=== PATIENT | male | born 1965 | race Caucasian/White ===

== ENCOUNTER 2016-12-01 07:25 | Day surgery (SDC) | payer OTHER ==
[2016-11-28 11:32] VITALS: BMI 21.4
[2016-12-01] MEDS ORDERED: LIDOCAINE HCL/PF 1% SDV 5ML VIAL ONE (07:59)
[2016-12-01] MEDS ORDERED: PROPOFOL 20 ML ONE ×3 (07:59)
[2016-12-01 12:28] VITALS: BP 117/69; PULSE 76; TEMP 97.7
--- NOTE | 2016-12-02 12:35 | PATH ---
Surgical Pathology Report Patient Name: JANINE OLIVEROS [facility]. Rec. #: [id number] /Age/Gender: 1965 (Age: 51) / M Account: [id number] Location: [facility]-ENDOSCOPY Taken: 12/01/2016 Received: 12/01/2016 Reported: 12/02/2016 Physicians: Kassie Pabon M.D. Specimen(s) Received A: BX 2ND PORTION DUODENUM & BULB B: BX ANTRUM Clinical History Abdominal pain, early satiety, weight loss, adenoma surveillance Erosive gastritis, hemorrhoids, food impaction, incomplete colonoscopy, suboptimal prep Final Diagnosis A. DUODENUM, SECOND PORTION AND BULB, BIOPSY: DUODENAL MUCOSA WITH CHRONIC INFLAMMATION AND FOCAL JOE'S GLANDS HYPERPLASIA. NO HISTOLOGIC EVIDENCE OF GLUTEN SENSITIVE ENTEROPATHY (CELIAC DISEASE). B. STOMACH, ANTRUM, BIOPSY: GASTRIC ANTRUM AND OXYNTIC MUCOSA WITH MODERATE CHRONIC GASTRITIS AND MILD REACTIVE GASTROPATHY. IMMUNOSTAIN FOR H. PYLORI IS NEGATIVE FOR ORGANISMS. Electronically Signed Aditya Resendiz M.D. Gross Description A. Received in formalin, labeled "biopsy second portion of duodenum and duodenal bulb" are 3 olivia, irregular portions of soft tissue averaging 0.4 cm in greatest dimension. The specimens are submitted in toto in one cassette. B. Received in formalin, labeled "biopsy antrum" are 3 olivia, irregular portions of soft tissue ranging from 0.2-0.4 cm in greatest dimension. The specimens are submitted in toto in one cassette. 12/01/201612/01/2016
== END 2016-12-01 10:10 | disposition home or self-care (01) ==
LOC: JASU-ENDO 07:25
PROVIDERS: ATTEND Internal Medicine Gastroenterology
PROC: 0DB98ZX Excision of Duodenum, Via Natural or Artificial Opening Endoscopic, Diagnostic (ICD-10-PCS; 2016-12-01)
PROC: 0DB68ZX Excision of Stomach, Via Natural or Artificial Opening Endoscopic, Diagnostic (ICD-10-PCS; 2016-12-01)
PROC: 0DJD8ZZ Inspection of Lower Intestinal Tract, Via Natural or Artificial Opening Endoscopic (ICD-10-PCS; principal; 2016-12-01 08:00)
DX: K29.70 Gastritis, unspecified, without bleeding (principal); R63.4 Abnormal weight loss; Z86.010 Personal history of colon polyps; Z53.8 Procedure and treatment not carried out for other reasons; R10.13 Epigastric pain; R12 Heartburn
CPT/HCPCS: 88305-TC; 88342-TC

== ENCOUNTER 2016-12-15 07:18 | Day surgery (SDC) | payer OTHER ==
[2016-12-15] MEDS ORDERED: PROPOFOL 20 ML ONE ×4 (07:48)
[2016-12-15] MEDS ORDERED: LIDOCAINE HCL/PF 1% SDV 5ML VIAL ONE (07:48)
[2016-12-15 08:04] VITALS: BMI 21.8
[2016-12-15 08:54] VITALS: TEMP 98.1
[2016-12-15 09:21] VITALS: PULSE 84
[2016-12-15 10:03] LABS: EOSINOPHIL 2.2 % (0-4.5); MCH 29.8 pg (25.7-33.7); MCHC 33.4 g/dl (32.0-35.9); MEAN CELL VOLUME 89.2 fl (80-96); MEAN PLT VOLUME 8.2 fl (7.5-11.1); PLATELET COUNT 187 K/MM3 (134-434); RDW 13.8 % (11.9-15.9); WHITE BLOOD COUNT 6.4 K/mm3 (4.0-10.0)
[2016-12-15 10:20] LABS: INR 0.96 (0.82-1.09); PROTHROMBIN TIME (PATIENT) 10.5 SEC (9.98-11.88)
[2016-12-15 10:21] VITALS: BP 120/84
[2016-12-15 10:35] LABS: ALBUMIN 3.4 g/dl (3.4-5.0); AMYLASE 50 U/L (25-115); ANION GAP 7 (8-16); BILIRUBIN,TOTAL 1.1 mg/dL (0.2-1.0); CALCIUM 9.1 mg/dL (8.5-10.1); CO2 32 mmol/L (21-32); CREATININE 0.5 mg/dL (0.7-1.3); GLUCOSE,RANDOM 193 mg/dL (74-106); SGOT/AST 16 U/L (15-37); SGPT/ALT 28 U/L (12-78); TOT PROT 6.5 g/dl (6.4-8.2)
[2016-12-15 10:37] LABS: ALK PHOS 60 U/L (45-117); FERRITIN 87.818 ng/ml (16.4-293.9)
[2016-12-15 10:57] LABS: C-REACTIVE PROTEIN < 0.3 MG/DL (0.00-0.3)
[2016-12-16 06:06] LABS: SERUM IRON 106 ug/dL (38-169); TOTAL IRON BINDING CAPACITY 290 ug/dL (250-450); UIBC 184 ug/dL (111-343)
[2016-12-16 08:07] LABS: CA 19-9 37 U/mL (0-35)
--- NOTE | 2016-12-16 12:59 | PATH ---
Surgical Pathology Report Patient Name: JANINE OLIVEROS [facility]. Rec. #: [id number] /Age/Gender: 1965 (Age: 51) / M Account: [id number] Location: [facility]-ENDOSCOPY Taken: 12/15/2016 Received: 12/15/2016 Reported: 12/16/2016 Physicians: Kassie Pabon M.D. Specimen(s) Received DESCENDING COLON POLYP Clinical History History of colon polyp Polyp, diverticulosis Final Diagnosis COLON, DESCENDING, POLYP, POLYPECTOMY: TUBULAR ADENOMA. Electronically Signed Aditya Resendiz M.D. Gross Description Received in formalin, labeled "descending colon" is a olivia, irregular portion of soft tissue measuring 0.5 cm in greatest dimension. The specimen is submitted in toto in one cassette. 12/15/201612/15/2016
[2016-12-16 14:13] LABS: HEP B SURFACE AB Reactive (.)
[2016-12-17 00:06] LABS: IGG 4 22 mg/dL (1-291)
[2016-12-17 08:07] LABS: ALPHA 2 MACROGLOBULINS,QN 172 mg/dL (110-276); BILIRUBIN TOTAL 0.7 mg/dL (0.0-1.2); FIBROSIS SCORE- 0.12 (0.00-0.21); GGT= 13 IU/L (0-65); GLUCOSE SERUM 206 mg/dL (65-99); HAPTOGLOBIN= 127 mg/dL (34-200); HEIGHT. 66 Inches (.); STEATOSIS SCORE- 0.27 (0.00-0.30); TRIGLYCERIDES= 172 mg/dL (0-149); WEIGHT. 148 LBS (.)
== END 2016-12-15 10:10 | disposition home or self-care (01) ==
LOC: JASU-ENDO 07:18
PROVIDERS: ATTEND Internal Medicine Gastroenterology
PROC: 0DBM8ZX Excision of Descending Colon, Via Natural or Artificial Opening Endoscopic, Diagnostic (ICD-10-PCS; principal; 2016-12-15 08:00)
DX: Z86.010 Personal history of colon polyps (principal); D12.4 Benign neoplasm of descending colon; K57.30 Diverticulosis of large intestine without perforation or abscess without bleeding; K64.8 Other hemorrhoids
CPT/HCPCS: 36415; 80053; 82105; 82150; 82728; 82787; 83540; 83550; 83690; 85025; 85610; 86140; 86301; 86704; 86706; 86708; 87340; 88305-TC

== ENCOUNTER 2018-02-04 17:37 | Inpatient (IN) | payer OTHER ==
--- NOTE | 2018-02-04 17:43 | PDOC ---
Rapid Medical Evaluation Time Seen by Provider: 02/04/18 17:42 Medical Evaluation: Allergies Allergy/AdvReac Type Severity Reaction Status Date / Time No Known Allergies Allergy Verified 08/26/17 21:57 02/04/18 17:42 I have performed a brief in-person evaluation of this patient. The patient presents with a chief complaint of: fever, flank pain, hematuria x 2 days, sent by PCP, diabetic on insulin Pertinent physical exam findings: febrile to 102.7F I have ordered the following: sepsis workup The patient will proceed to the ED for further evaluation. Discharge Disposition - Diagnosis Hematuria - Referrals Referrals: Latesha Sanderson MD [Primary Care Provider] - - Patient Instructions - Post Discharge Activity
[2018-02-04 17:45] VITALS: BMI 22.9
[2018-02-04 18:24] LABS: HEMATOCRIT 37.2 % (35.4-49); HEMOGLOBIN 12.5 GM/dL (11.7-16.9); MCH 29.2 pg (25.7-33.7); MCHC 33.6 g/dl (32.0-35.9); MEAN CELL VOLUME 86.8 fl (80-96); MEAN PLT VOLUME 8.4 fl (7.5-11.1); PLATELET COUNT 284 K/MM3 (134-434); RBC 4.29 M/mm3 (4.00-5.60); RDW 14.6 % (11.9-15.9); WHITE BLOOD COUNT 12.3 K/mm3 (4.0-10.0)
[2018-02-04 18:26] LABS: URINE APPEARANCE SLCLOUDY; URINE BILIRUBIN NEGATIVE (<2.0 mg/dL); URINE COLOR LTYELLOW; URINE GLUCOSE (UA) 3+ (NEGATIVE); URINE KETONE NEGATIVE (NEGATIVE); URINE NITRITE NEGATIVE (NEGATIVE); URINE UROBILINOGEN NEGATIVE mg/dL (0.2-1.0)
[2018-02-04 18:29] LABS: URINE LEUK ESTERASE 3+ (NEGATIVE); URINE PROTEIN 1+ (NEGATIVE)
[2018-02-04 18:33] LABS: EPI CELLS RARE /HPF (FEW); URINE BACTERIA RARE /hpf (NONE SEEN); URINE MUCUS RARE
[2018-02-04 18:36] LABS: INR 1.12 (0.82-1.09); PROTHROMBIN TIME (PATIENT) 12.6 SEC (9.98-11.88)
[2018-02-04 18:39] LABS: ACTIVATED PTT 30.7 SECONDS (26.9-34.4)
[2018-02-04 18:51] LABS: PLATELET ESTIMATE ADEQUATE
[2018-02-04 19:03] LABS: ALBUMIN 3.4 g/dl (3.4-5.0); ANION GAP 9 (8-16); BLOOD UREA NITROGEN 9 mg/dL (7-18); CALCIUM 8.5 mg/dL (8.5-10.1); CHLORIDE 103 mmol/L (98-107); CO2 26 mmol/L (21-32); CREATININE 0.7 mg/dL (0.7-1.3); GLUCOSE,RANDOM 62 mg/dL (74-106); POTASSIUM 3.2 mmol/L (3.5-5.1); SGOT/AST 14 U/L (15-37); SGPT/ALT 13 U/L (12-78); SODIUM 138 mmol/L (136-145)
[2018-02-04 19:05] LABS: ALK PHOS 51 U/L (45-117); BILIRUBIN,TOTAL 0.3 mg/dL (0.2-1.0); TOT PROT 7.3 g/dl (6.4-8.2)
[2018-02-04] MEDS ORDERED: CEFTRIAXONE 1 GM in DEXTROSE 5%-WATER - 100 ML IVPB ONE (19:15)
[2018-02-04] MEDS ORDERED: ACETAMINOPHEN 1000 MG/100 ML VIAL (NON FORMULARY) IVPB ONE (19:16)
--- NOTE | 2018-02-04 19:16 | PDOC ---
History of Present Illness - General Chief Complaint: Pain, Acute Stated Complaint: PAIN/HEMATURIA Time Seen by Provider: 02/04/18 17:42 History Source: Patient - History of Present Illness Initial Comments: 02/04/18 19:33 53 year old male with left flank pain, hematuria x 4 days and now 2 days of fever and chills reported. denies NVD abdominal pain. PMHX: Diabetes, Diabetic neuropathy and hematuria Past History - Past Medical History Allergies/Adverse Reactions: Allergies Allergy/AdvReac Type Severity Reaction Status Date / Time No Known Allergies Allergy Verified 02/04/18 17:45 Home Medications: Ambulatory Orders Insulin (Levemir) [Levemir Flexpen -] 3 units SQ BIDAC 08/19/15 predniSONE [Deltasone -] 20 mg PO BID 10/06/16 Cyanocobalamin [Vitamin B12 -] 1,000 mcg PO DAILY 12/01/16 Ibuprofen [Advil -] 400 mg PO PRN #0 12/01/16 Pantoprazole Sodium [Protonix] 40 mg PO DAILY #0 tablet.dr 12/01/16 Insulin (LOG) Aspart [NovoLOG -] 3 units SQ BID 12/15/16 Mag Carb/Aluminum Hydrox/Algin [Gaviscon Liquid] 30 ml PO PRN 12/15/16 Pancrealipase 1 tab PO TID 12/15/16 Polyethylene Glycol 3350 [Miralax 255 gm Btl -] 17 gm PO DAILY #1 bottle Anemia: No Asthma: No Cancer: No Cardiac Disorders: No CVA: No COPD: No CHF: No DVT: No Diabetes: Yes (NIDDM,DIABETIC NEUROPATHY) GI Disorders: Yes (GERD,COLONIC POLYPS,DIVERTICULOSIS) Disorders: No HTN: Yes Hypercholesterolemia: Yes Kidney Stones: No Seizures: No Thyroid Disease: No - Surgical History Appendectomy: Yes Cholecystectomy: Yes (LAPAROSCOPIC CHOLECYSTECTOMY) Orthopedic Surgery: No (lt. hand surgery (job injury)) - Reproductive History Testicular Surgery: No - Suicide/Smoking/Psychosocial Hx Smoking History: Never smoked Have you smoked in the past 12 months: No Number of Cigarettes Smoked Daily: 10 If you are a former smoker, when did you quit?: about 2years ago Information on smoking cessation initiated: No 'Breaking Loose' booklet given: 01/30/16 Hx Alcohol Use: No Drug/Substance Use Hx: No Substance Use Type: Alcohol Hx Substance Use Treatment: No Review of Systems - Review of Systems Able to Perform ROS?: Yes Is the patient limited Syriac proficient: No Constitutional: Yes: Fever ABD/GI: No: Symptoms Reported, See HPI, Abdominal Distended, Abd. Pain w/ defecation, Blood Streaked Bowels, Constipated, Diarrhea, Difficulty Swallowing , Nausea, Poor Appetite, Poor Fluid Intake, Rectal Bleeding, Vomiting, Indigestion, Abdominal cramping, Tarry Stools, Other : Yes: Dysuria, Flank Pain, Hematuria, Pain. No: Symptoms Reported, See HPI, Burning, Discharge, Frequency, Incontinence, Urgency, Testicular Mass, Testicular Swelling, Lesions, Testicular Pain, Other Neurological: No: Symptoms reported, See HPI, Headache, Numbness, Paresthesia, Pre-Existing Deficit, Seizure, Tingling, Tremors, Weakness, Unsteady Gait, Ataxia, Dizziness, Other *Physical Exam - Vital Signs Last Vital Signs Temp Pulse Resp BP Pulse Ox 102.7 F H 94 H 18 114/71 99 02/04/18 17:42 02/04/18 17:42 02/04/18 17:42 02/04/18 17:42 02/04/18 17:42 - Physical Exam General Appearance: Yes: Appropriately Dressed Respiratory/Chest: positive: Lungs Clear, Normal Breath Sounds Gastrointestinal/Abdominal: positive: Normal Bowel Sounds, Soft. negative: Tender Musculoskeletal: positive: Normal Inspection, CVA Tenderness (L) Extremity: positive: Normal Capillary Refill Integumentary: positive: Dry, Warm, Pale Neurologic: positive: Fully Oriented, Alert, Normal Mood/Affect ED Treatment Course - LABORATORY CBC & Chemistry Diagram: 02/04/18 18:00 02/04/18 18:00 - ADDITIONAL ORDERS Additional order review: Laboratory Results 02/04/18 02/04/18 18:00 17:50 PT with INR 12.60 H INR 1.12 PTT (Actin FS) 30.7 Urine Color Ltyellow Urine Appearance Slcloudy Urine pH 6.0 Ur Specific [place] 1.010 Urine Protein 1+ H Urine Glucose (UA) 3+ H Urine Ketones Negative Urine Blood 1+ H Urine Nitrite Negative Urine Bilirubin Negative Urine Urobilinogen Negative Ur Leukocyte Esterase 3+ H Urine WBC (Auto) 305 Urine RBC (Auto) 11 Ur Epithelial Cells Rare Urine Bacteria Rare Urine Mucus Rare 02/04/18 18:00 RBC 4.29 MCV 86.8 MCHC 33.6 RDW 14.6 MPV 8.4 Neutrophils % No Result Required. Lymphocytes % No Result Required. Medical Decision Making - Medical Decision Making 02/04/18 19:42 A: peylonephritis; Fever P: cbc cmp ua ucx blood culture *DC/Admit/Observation/Transfer Diagnosis at time of Disposition: Pyelonephritis, acute - Discharge Dispostion Admit: Yes - Referrals Referrals: Latesha Sanderson MD [Primary Care Provider] - - Patient Instructions - Post Discharge Activity
[2018-02-04] MEDS ORDERED: ACETAMINOPHEN INJECTION 100 ML IVPB ONE (19:34)
[2018-02-04] MEDS ORDERED: CEFTRIAXONE 1 GM/50 ML BAG ONE (19:35)
--- NOTE | 2018-02-04 20:09 | PDOC ---
*Physical Exam - Vital Signs Last Vital Signs Temp Pulse Resp BP Pulse Ox 102.7 F H 94 H 18 114/71 99 02/04/18 17:42 02/04/18 17:42 02/04/18 17:42 02/04/18 17:42 02/04/18 17:42 ED Treatment Course - LABORATORY CBC & Chemistry Diagram: 02/04/18 18:00 02/04/18 18:00 - ADDITIONAL ORDERS Additional order review: Laboratory Results 02/04/18 02/04/18 02/04/18 18:30 18:00 18:00 PT with INR INR PTT (Actin FS) Sodium Potassium Chloride Carbon Dioxide Anion Gap BUN Creatinine Creat Clearance w eGFR Random Glucose Lactic Acid 1.1 1.1 Calcium Total Bilirubin AST ALT Alkaline Phosphatase Troponin I < 0.02 Total Protein Albumin Urine Color Urine Appearance Urine pH Ur Specific [place] Urine Protein Urine Glucose (UA) Urine Ketones Urine Blood Urine Nitrite Urine Bilirubin Urine Urobilinogen Ur Leukocyte Esterase Urine WBC (Auto) Urine RBC (Auto) Ur Epithelial Cells Urine Bacteria Urine Mucus 02/04/18 02/04/18 02/04/18 18:00 18:00 17:50 PT with INR 12.60 H INR 1.12 PTT (Actin FS) 30.7 Sodium 138 Potassium 3.2 L Chloride 103 Carbon Dioxide 26 Anion Gap 9 BUN 9 Creatinine 0.7 D Creat Clearance w eGFR > 60 Random Glucose 62 L D Lactic Acid Calcium 8.5 Total Bilirubin 0.3 D AST 14 L D ALT 13 D Alkaline Phosphatase 51 Troponin I Total Protein 7.3 Albumin 3.4 Urine Color Ltyellow Urine Appearance Slcloudy Urine pH 6.0 Ur Specific [place] 1.010 Urine Protein 1+ H Urine Glucose (UA) 3+ H Urine Ketones Negative Urine Blood 1+ H Urine Nitrite Negative Urine Bilirubin Negative Urine Urobilinogen Negative Ur Leukocyte Esterase 3+ H Urine WBC (Auto) 305 Urine RBC (Auto) 11 Ur Epithelial Cells Rare Urine Bacteria Rare Urine Mucus Rare 02/04/18 18:00 RBC 4.29 MCV 86.8 MCHC 33.6 RDW 14.6 MPV 8.4 Neutrophils % No Result Required. Lymphocytes % No Result Required. Medical Decision Making - Medical Decision Making 02/04/18 20:08 agree with care from YUDY Mckeon *DC/Admit/Observation/Transfer Diagnosis at time of Disposition: Pyelonephritis, acute - Referrals Referrals: Latesha Sanderson MD [Primary Care Provider] - - Patient Instructions - Post Discharge Activity
[2018-02-04] MEDS ORDERED: DEXTROSE 50%-WATER - 25 GM/50 ML VIAL IVPUSH ONE (20:30)
--- NOTE | 2018-02-04 21:18 | HP ---
CHIEF COMPLAINT: Fever PCP: Dr Sanderson HISTORY OF PRESENT ILLNESS: 53yo Burmese speaking M with a PMHx of IDDM who presented w/ fevers and chills for the past 2 days. Translation provided by daughter. He endorses L flank pain , but denies dysuria or abd pain. Patient takes Levemir BID and Novolog AC for his diabetes, but endorses periodically using his PO medications (including SGLT2 inhibitor) when he forgets to take his insulin. He also endorses thick, gross hematuria for the past couple of days. Endorses 20 year prior smoking history. No prior BPH symptoms. Denies recent urological procedures. In the ER, patient was febrile (Tm 102.7) and tachycardic to the 90s. Labs were consistent with urinary tract infection. He was given IV Tylenol and 1g of Rocephin. Recent Travel: Denies PAST MEDICAL HISTORY: IDDM, GERD PAST SURGICAL HISTORY: Appendectomy, CCY, L hand usrgery Social History: Smoking: Prior 20 year smoker. Alcohol: Denies Drugs: Denies Allergies: No Known Allergies Allergy (Verified 02/04/18 17:45) HOME MEDICATIONS: Home Medications Medication Instructions Recorded Insulin (Levemir) [Levemir Flexpen 20 units SQ AM 08/19/15 -] Escitalopram Oxalate [Lexapro -] 20 mg PO DAILY 02/04/18 Insulin Aspart [Novolog] 10 unit SQ AC 02/04/18 Insulin Detemir [Levemir Flextouch] 16 unit SQ HS 02/04/18 Pantoprazole Sodium [Protonix] 40 mg PO DAILY 02/04/18 CONSTITUTIONAL: +fevers, chills Absent: diaphoresis, generalized weakness, malaise, loss of appetite, weight change HEENT: Absent: rhinorrhea, nasal congestion, throat pain, throat swelling, difficulty swallowing, mouth swelling, ear pain CARDIOVASCULAR: Absent: chest pain, syncope, palpitations, irregular heart rate , lightheadedness, peripheral edema RESPIRATORY: Absent: cough, shortness of breath, dyspnea with exertion, orthopnea, wheezing, stridor, hemoptysis GASTROINTESTINAL:Absent: abdominal pain, abdominal distension, nausea, vomiting , diarrhea, constipation, melena, hematochezia GENITOURINARY: + hematuria Absent: dysuria, frequency, urgency, hesitancy, flank pain, genital pain MUSCULOSKELETAL: Absent: myalgia, arthralgia, joint swelling, back pain, neck pain SKIN: Absent: rash, itching, pallor HEMATOLOGIC/IMMUNOLOGIC: Absent: easy bleeding, easy bruising, lymphadenopathy, frequent infections ENDOCRINE:Absent: unexplained weight gain, unexplained weight loss, heat intolerance, cold intolerance NEUROLOGIC: Absent: headache, focal weakness or paresthesias, dizziness, unsteady gait, seizure, mental status changes, PSYCHIATRIC: Absent: anxiety, depression, suicidal or homicidal ideation, hallucinations. PHYSICAL EXAMINATION Vital Signs Period Temp Pulse Resp BP Sys/Javed Pulse Ox Last 24 Hr 102.7 F 94 18 114/71 99 GEN: AAOx3, NAD, Lying comfortably, doesnt appear ill HEENT: PERRLA, EOMi, no JVD CV: S1, S2, RRR LUNG: CTABL ABD: Soft, no suprapubic tenderness, +L flank mild tenderness MSK: No edema, no erythema NEURO: CN 2-12 intact, no msk deficits, decreased sensation to pinprick in BLLE ASSESSMENT/PLAN: 53yo Burmese speaking M with a PMHx of IDDM who presented w/ fevers and chills and L flank tenderness, found to have a urinary tract infection # Sepsis 2/2 Suspected Pyelo -- Patient inappropriately takes SGLT2 inhibitor (unsure if Invokana or Farxiga ) when he forgets his insulin, high risk for UTI. Will treat w/ Rocephin 1g daily. F/u UCx. Normal renal u/s. IVF 100cc/hr. # Gross hematuria -- Pt states he has thick hematuria w/ clots, which is not consistent w/ UA of 11 rbc. Could be 2/2 pyelo. Was considering bladder etiology especially in light of smoking hx, however bladder u/s shows no mass. No prior BPH sx, no dysuria, urinating w/o difficulty. Will repeat UA in AM, observe for now. Hold off on uro evaluation for now. # Hypokalemia -- Could be from poor PO intake. Will replete w/ 40meq PO. Repeat K in AM. # IDDM -- Fingerstick was 60s in the ER likely due to very limited PO intake today, improved to 90s w/ snack, D50 ordered, not given. Will hold evening Levemir. If he eats breakfast, can give AM Levemir. A1C 14.2 in 2015. Will add A1C to ER labs. Continue ISS and BGMs ACHS. # GERD -- Continue protonix daily # MDD -- Continue Lexapro # FEN/PPx -- IVNS 100cc/hr, diabetic diet, SCDs # Dispo -- Admit to med/surg Called pharmacy. All meds confirmed except SGLT2 inhib. Pt has both Invokana and Farxiga in the records. Patient and daughter are unsure which he actually takes, so I did not place in med-rec. Case d/w Dr Aguero & Dr Apple Garrido MD - PGY1 Night Pre Algebra Teacher Visit type - Emergency Visit Emergency Visit: Yes ED Registration Date: 02/04/18 Care time: The patient presented to the Emergency Department on the above date and was hospitalized for further evaluation of their emergent condition. - New Patient This patient is new to me today: Yes Date on this admission: 02/05/18 - Critical Care Critical Care patient: No Hospitalist Screening - Colonoscopy Questionnaire Colonoscopy Questionnaire: Colonoscopy Questionnaire - Patient: 50 - 75 years old and never had a screening colonoscopy: Unknown History of colon or rectal polyps, or CA: Unknown History of IBD, Crohn's disease or UC: Unknown History of abdominal radiation therapy as a child: Unknown - Relative: 1 with colon or rectal CA, or polyps at age 60 or younger: Unknown Colon or rectal CA diagnosed at age 45 or younger: Unknown Multiple relatives with colon or rectal CA: Unknown - Outcome: Screening Result: Negative Screen
--- NOTE | 2018-02-04 21:35 | HP ---
CHIEF COMPLAINT: dysuria PCP: HISTORY OF PRESENT ILLNESS: This is a 53year old male with IDDM, depression who presents with fever, chills , pelvic pain, dysuria and hematuria x1 day. He initially went to primary for these symptoms and was sent to ER due to fever of 103 in office. Denies BPH history or any problems urinating in past. Normal stream/flow. Admits to a "gellish" blood consistency when urinating, one episode. Denies flank pain. History given by daughter, at bedside, speaks guamanian. ER course was notable for: UA positive for UTI. Recent Travel: no PAST MEDICAL HISTORY: DM, pancreatitis, GERD, depression PAST SURGICAL HISTORY: appendectomy, choleycystectomy Social History: Smoking:quit ten years ago; smoked for many years Alcohol:social Drugs: none Family History: Allergies No Known Allergies Allergy (Verified 02/04/18 17:45) HOME MEDICATIONS: Home Medications Medication Instructions Recorded Insulin (Levemir) [Levemir Flexpen 45 units SQ AM 08/19/15 -] Canagliflozin [Invokana] 100 mg PO DAILY 02/04/18 Dapagliflozin Propanediol [Farxiga] 5 mg PO DAILY 02/04/18 Escitalopram Oxalate [Lexapro -] 20 mg PO DAILY 02/04/18 Insulin Detemir [Levemir Flextouch] 15 unit SQ HS 02/04/18 Pantoprazole Sodium [Protonix] 40 mg PO DAILY 02/04/18 REVIEW OF SYSTEMS CONSTITUTIONAL: Positive: fever, chills Absent: diaphoresis, generalized weakness, malaise, loss of appetite, weight change HEENT: Absent: rhinorrhea, nasal congestion, throat pain, throat swelling, difficulty swallowing, mouth swelling, ear pain, eye pain, visual changes CARDIOVASCULAR: Absent: chest pain, syncope, palpitations, irregular heart rate, lightheadedness , peripheral edema RESPIRATORY: Absent: cough, shortness of breath, dyspnea with exertion, orthopnea, wheezing, stridor, hemoptysis GASTROINTESTINAL: Absent: abdominal pain, abdominal distension, nausea, vomiting, diarrhea, constipation, melena, hematochezia GENITOURINARY: Positive:dysuria ,hematuria, Absent: , frequency, urgency, hesitancy,flank pain, genital pain MUSCULOSKELETAL: Absent: myalgia, arthralgia, joint swelling, back pain, neck pain SKIN: Absent: rash, itching, pallor HEMATOLOGIC/IMMUNOLOGIC: Absent: easy bleeding, easy bruising, lymphadenopathy, frequent infections ENDOCRINE: Absent: unexplained weight gain, unexplained weight loss, heat intolerance, cold intolerance NEUROLOGIC: Absent: headache, focal weakness or paresthesias, dizziness, unsteady gait, seizure, mental status changes, bladder or bowel incontinence PSYCHIATRIC: Absent: anxiety, depression, suicidal or homicidal ideation, hallucinations. PHYSICAL EXAMINATION Vital Signs - 24 hr 02/04/18 17:42 Temperature 102.7 F H Pulse Rate 94 H Respiratory 18 Rate Blood Pressure 114/71 O2 Sat by Pulse 99 Oximetry (%) GENERAL: Awake, alert, and fully oriented, in no acute distress. Speaks guamanian HEAD: Normal with no signs of trauma. EYES: Pupils equal, round and reactive to light, extraocular movements intact, sclera anicteric, conjunctiva clear. No lid lag. EARS, NOSE, THROAT: Ears normal, nares patent, oropharynx clear without exudates. Moist mucous membranes. NECK: Normal range of motion, supple without lymphadenopathy, JVD, or masses. LUNGS: Breath sounds equal, clear to auscultation bilaterally. No wheezes, and no crackles. No accessory muscle use. HEART: Regular rate and rhythm, normal S1 and S2 without murmur, rub or gallop. ABDOMEN: Soft, very mildy tender LLQ, not distended, normoactive bowel sounds, no guarding, no rebound, no masses. No hepatomegaly or splenomegaly. MUSCULOSKELETAL: Normal range of motion at all joints. No bony deformities or tenderness. No CVA tenderness. UPPER EXTREMITIES: 2+ pulses, warm, well-perfused. No cyanosis. No clubbing. No peripheral edema. LOWER EXTREMITIES: 2+ pulses, warm, well-perfused. No calf tenderness. No peripheral edema. NEUROLOGICAL: Cranial nerves II-XII intact. LLE decreased sensation; walks with cane due to diabetic neuropathy; strength 5/5; reflexes 2+ PSYCHIATRIC: Cooperative. Good eye contact. Appropriate mood and affect. SKIN: Warm, dry, normal turgor, no rashes or lesions noted, normal capillary refill. Laboratory Results - last 24 hr 02/04/18 02/04/18 02/04/18 17:50 18:00 18:00 WBC 12.3 H D RBC 4.29 Hgb 12.5 D Hct 37.2 MCV 86.8 MCH 29.2 MCHC 33.6 RDW 14.6 Plt Count 284 D MPV 8.4 Total Counted 100 Neutrophils % No Result Required. Neutrophils % (Manual) 70.0 Band Neutrophils % 1.0 Lymphocytes % No Result Required. Lymphocytes % (Manual) 18.0 Monocytes % (Manual) 10 Metamyelocytes 1 Platelet Estimate Adequate Platelet Comment No clumping noted PT with INR 12.60 H INR 1.12 PTT (Actin FS) 30.7 Sodium Potassium Chloride Carbon Dioxide Anion Gap BUN Creatinine Creat Clearance w eGFR POC Glucometer Random Glucose Lactic Acid Calcium Total Bilirubin AST ALT Alkaline Phosphatase Troponin I Total Protein Albumin Urine Color Ltyellow Urine Appearance Slcloudy Urine pH 6.0 Ur Specific [place] 1.010 Urine Protein 1+ H Urine Glucose (UA) 3+ H Urine Ketones Negative Urine Blood 1+ H Urine Nitrite Negative Urine Bilirubin Negative Urine Urobilinogen Negative Ur Leukocyte Esterase 3+ H Urine WBC (Auto) 305 Urine RBC (Auto) 11 Ur Epithelial Cells Rare Urine Bacteria Rare Urine Mucus Rare 02/04/18 02/04/18 02/04/18 18:00 18:00 18:00 WBC RBC Hgb Hct MCV MCH MCHC RDW Plt Count MPV Total Counted Neutrophils % Neutrophils % (Manual) Band Neutrophils % Lymphocytes % Lymphocytes % (Manual) Monocytes % (Manual) Metamyelocytes Platelet Estimate Platelet Comment PT with INR INR PTT (Actin FS) Sodium 138 Potassium 3.2 L Chloride 103 Carbon Dioxide 26 Anion Gap 9 BUN 9 Creatinine 0.7 D Creat Clearance w eGFR > 60 POC Glucometer Random Glucose 62 L D Lactic Acid 1.1 Calcium 8.5 Total Bilirubin 0.3 D AST 14 L D ALT 13 D Alkaline Phosphatase 51 Troponin I < 0.02 Total Protein 7.3 Albumin 3.4 Urine Color Urine Appearance Urine pH Ur Specific [place] Urine Protein Urine Glucose (UA) Urine Ketones Urine Blood Urine Nitrite Urine Bilirubin Urine Urobilinogen Ur Leukocyte Esterase Urine WBC (Auto) Urine RBC (Auto) Ur Epithelial Cells Urine Bacteria Urine Mucus 02/04/18 02/04/18 18:30 20:41 WBC RBC Hgb Hct MCV MCH MCHC RDW Plt Count MPV Total Counted Neutrophils % Neutrophils % (Manual) Band Neutrophils % Lymphocytes % Lymphocytes % (Manual) Monocytes % (Manual) Metamyelocytes Platelet Estimate Platelet Comment PT with INR INR PTT (Actin FS) Sodium Potassium Chloride Carbon Dioxide Anion Gap BUN Creatinine Creat Clearance w eGFR POC Glucometer 95.49523 Random Glucose Lactic Acid 1.1 Calcium Total Bilirubin AST ALT Alkaline Phosphatase Troponin I Total Protein Albumin Urine Color Urine Appearance Urine pH Ur Specific [place] Urine Protein Urine Glucose (UA) Urine Ketones Urine Blood Urine Nitrite Urine Bilirubin Urine Urobilinogen Ur Leukocyte Esterase Urine WBC (Auto) Urine RBC (Auto) Ur Epithelial Cells Urine Bacteria Urine Mucus ASSESSMENT/PLAN: This is a 53 year old male with a history of DM, depression, hx of pancreatitis , who presented with fever, chills, dysuria and hematuria,, found to be septic sec to UTI. #sepsis secondary to complicated UTI (diabetic, male) -IVF -IV ceftriaxone -f/u blood and urine cultures -renal/bladder US -would repeat UA in am;first UA had 11 rbcs; if h/h drops consider urology eval/ cystoscopy #Diabetic with hypoglycemia on admission: -in ER glucose 62 -given vial D50 -hold long acting levemir/until eating -start insulin SS -bgm ACHS #depression: -cont ho9me meds #GERD: -cont PPI DVT ppl: hold for now due to hematuria: scds Disposition: inpt med surg Visit type - Emergency Visit Emergency Visit: Yes Care time: The patient presented to the Emergency Department on the above date and was hospitalized for further evaluation of their emergent condition. - New Patient This patient is new to me today: Yes Date on this admission: 02/04/18 - Critical Care Critical Care patient: No
[2018-02-04] MEDS ORDERED: POTASSIUM CHLORIDE TABS 20 MEQ TABLET.ER (FP) PO ONE ×2 (22:01→22:18)
[2018-02-04] MEDS: INSULIN SLIDING SCALE (NOVOLOG) 1 VIAL SQ SCH (22:13)
--- NOTE | 2018-02-04 22:34 | PN ---
Teaching Attending Note Name of Resident: Jerson Garrido ATTENDING PHYSICIAN STATEMENT I saw and evaluated the patient. I reviewed the resident's note and discussed the case with the resident. I agree with the resident's findings and plan as documented. SUBJECTIVE: 53M with fevers, chills, left flank pain for past 2 days OBJECTIVE: Temp 102.7 Gen: NAD AAOx3 CV: tachycardia, no m/r/g Lungs: CTA-B Back: no CVA tenderness Abd: Soft, NTND ASSESSMENT AND PLAN: Fevers, leukocytosis, left flank pain, positive UA all suggest sepsis 2/2 pyelonephritis start IV abx rocephin, f/u Urine Cultures mild hemeturia likely infectious related but should have Urology evaluation on a nonurgent basis. US Kidney Bladder hypoglycemia symptomatic, likely due to no food today in addition to sepsis related hold long acting tonight sliding scale insulin, can resume long acting when eating better, maybe tomorrow evening check A1c hypokalemia-replete and recheck
[2018-02-04] MEDS: SODIUM CHLORIDE 1,000 ML IV SCH (22:43)
[2018-02-05] MEDS: INSULIN SLIDING SCALE (NOVOLOG) 1 VIAL SQ SCH ×4 (06:15→21:13)
[2018-02-05 07:49] LABS: URINE APPEARANCE CLEAR; URINE BILIRUBIN NEGATIVE (<2.0 mg/dL); URINE COLOR STRAW; URINE GLUCOSE (UA) 3+ (NEGATIVE); URINE KETONE NEGATIVE (NEGATIVE); URINE NITRITE NEGATIVE (NEGATIVE); URINE PROTEIN NEGATIVE (NEGATIVE); URINE UROBILINOGEN NEGATIVE mg/dL (0.2-1.0)
[2018-02-05 07:55] LABS: BASO % 0.5 % (0-2.0); EOS % 0.7 % (0-4.5); HEMATOCRIT 32.4 % (35.4-49); LYMPH % 14.9 % (8-40); MCH 29.5 pg (25.7-33.7); MCHC 33.9 g/dl (32.0-35.9); MEAN CELL VOLUME 87.2 fl (80-96); MEAN PLT VOLUME 8.6 fl (7.5-11.1); MONO % 17.1 % (3.8-10.2); NEUT % 66.8 % (42.8-82.8); PLATELET COUNT 244 K/MM3 (134-434); RBC 3.71 M/mm3 (4.00-5.60); RDW 14.7 % (11.9-15.9); WHITE BLOOD COUNT 7.9 K/mm3 (4.0-10.0)
[2018-02-05 08:15] LABS: CALCIUM 7.7 mg/dL (8.5-10.1); CHLORIDE 110 mmol/L (98-107); POTASSIUM 3.3 mmol/L (3.5-5.1); SODIUM 140 mmol/L (136-145)
[2018-02-05 08:21] LABS: ALBUMIN 2.6 g/dl (3.4-5.0); ALK PHOS 39 U/L (45-117); ANION GAP 6 (8-16); BILIRUBIN,TOTAL 0.2 mg/dL (0.2-1.0); BLOOD UREA NITROGEN 8 mg/dL (7-18); CO2 24 mmol/L (21-32); CREATININE 0.6 mg/dL (0.7-1.3); GLUCOSE,RANDOM 114 mg/dL (74-106); MAGNESIUM 2.3 mg/dL (1.8-2.4); SGOT/AST 10 U/L (15-37); SGPT/ALT 13 U/L (12-78); TOT PROT 5.6 g/dl (6.4-8.2)
[2018-02-05 08:28] LABS: URINE LEUK ESTERASE 1+ (NEGATIVE)
[2018-02-05 08:34] LABS: YEAST RARE
[2018-02-05] MEDS ORDERED: cefTRIAXone SODIUM 1 GM VIAL ONE (09:09)
[2018-02-05] MEDS ORDERED: DEXTROSE 5%-WATER - 50 ML IVPB ONE (09:09)
[2018-02-05] MEDS: CEFTRIAXONE 1 GM in DEXTROSE 5%-WATER - 50 ML IVPB SCH (09:52)
[2018-02-05] MEDS: PANTOPRAZOLE 40 MG TABLET (FP) PO SCH (09:52)
[2018-02-05] MEDS: ESCITALOPRAM OXALATE 20 MG TABLET (FP) PO SCH (09:52)
--- NOTE | 2018-02-05 09:54 | EKG ---
Test Reason : Blood Pressure : / mmHG Vent. Rate : 080 BPM Atrial Rate : 080 BPM P-R Int : 130 ms QRS Dur : 098 ms QT Int : 394 ms P-R-T Axes : 039 033 028 degrees QTc Int : 454 ms NORMAL SINUS RHYTHM NORMAL ECG WHEN COMPARED WITH ECG OF 26-AUG-2017 23:21, ST NO LONGER ELEVATED IN INFERIOR LEADS Confirmed by DALE WALLER MD ([id number]) on 02/05/2018 9:54:12 AM Referred By: Confirmed By:DALE WALLER MD
[2018-02-05] MEDS ORDERED: POTASSIUM CHLORIDE TABS 20 MEQ TABLET.ER (FP) PO ONE (10:00)
[2018-02-05] MEDS ORDERED: ACETAMINOPHEN 325 MG TABLET (FP) PO ONE (10:27)
[2018-02-05] MEDS: SODIUM CHLORIDE 1,000 ML IV SCH (14:57)
--- NOTE | 2018-02-05 16:15 | PN ---
Teaching Attending Note Name of Resident: Sanjeev Urias ATTENDING PHYSICIAN STATEMENT I saw and evaluated the patient. I reviewed the resident's note and discussed the case with the resident. I agree with the resident's findings and plan as documented. SUBJECTIVE: no fever or chills, feels much better . no abd pain . no flank painnow . no hematuria OBJECTIVE: NAD , slightly dry MM Cv: RRR Lungs: CTAB Abd: soft, NT, ND , NL BS , no CVA tenderness ext: no edema ASSESSMENT AND PLAN: 53 y/o man with h/o Dm , GERD, and depression who presented with hematuria, L flank pain and fever , he was found to have acute pyelonephritis 1- Sepsis due to acute pyelonephritis : improved - cont ceftriaxone. - follow blood and urine cx - hematuria is expected to be due to infectin , but any way need outpt referral to uro due to UTI in a male - US reviewed. 2- DM : hypoglycemic at presentation , likely due to sepsis, poor po intake while sick. takes 20 of levemir in am and 16 units in HS , and po pills ( not sure of names ) - willhold all meds and monitor on SSI . possible long acting tomorrow - A1c 8.5 ( from 16.2 in 2015 ) 3- depression , cont lexapro will confirm meds with family when they bring bottles HLOC
[2018-02-05] MEDS ORDERED: INSULIN (NOVOLOG) ASPART 100 UNITS/ML 10ML VIAL ONE (20:24)
[2018-02-05] MEDS ORDERED: ACETAMINOPHEN 325 MG TABLET (FP) PO PRN (20:47)
--- NOTE | 2018-02-05 20:48 | PN ---
Physical Exam: SUBJECTIVE: Patient seen and examined at bedside. Patient states he feels better today. His flank pain has resolved. OBJECTIVE: Vital Signs Period Temp Pulse Resp BP Sys/Javed Pulse Ox Last 24 Hr 98.2 F-100.4 F 68-90 18-20 90-123/54-85 98-98 GENERAL: The patient is awake, alert, and fully oriented, in no acute distress. HEAD: Normal with no signs of trauma.. NECK: Trachea midline, full range of motion, supple. LUNGS: Breath sounds equal, clear to auscultation bilaterally, no wheezes, no crackles, no accessory muscle use. HEART: Regular rate and rhythm, S1, S2 without murmur, rub or gallop. ABDOMEN: Soft, nontender, nondistended, normoactive bowel sounds, no guarding, no rebound, no hepatosplenomegaly, no masses. No CVA tenderness. EXTREMITIES: 2+ pulses, warm, well-perfused, no edema. NEUROLOGICAL: Cranial nerves II through X grossly intact. Normal speech, gait not observed. PSYCH: Normal mood, normal affect. SKIN: Warm, dry, normal turgor, no rashes or lesions noted Laboratory Results - last 24 hr 02/04/18 02/05/18 02/05/18 20:41 05:03 06:00 WBC RBC Hgb Hct MCV MCH MCHC RDW Plt Count MPV Neutrophils % Lymphocytes % Monocytes % Eosinophils % Basophils % Sodium Potassium Chloride Carbon Dioxide Anion Gap BUN Creatinine Creat Clearance w eGFR POC Glucometer [phone] Random Glucose Hemoglobin A1c % Calcium Magnesium Total Bilirubin AST ALT Alkaline Phosphatase Total Protein Albumin Urine Color Straw Urine Appearance Clear Urine pH 6.0 Ur Specific [place] 1.013 Urine Protein Negative Urine Glucose (UA) 3+ H Urine Ketones Negative Urine Blood 1+ H Urine Nitrite Negative Urine Bilirubin Negative Urine Urobilinogen Negative Ur Leukocyte Esterase 1+ H D Urine WBC (Auto) 48 Urine RBC (Auto) 2 Urine Yeast Rare 02/05/18 02/05/18 02/05/18 06:40 07:00 07:00 WBC 7.9 D RBC 3.71 L Hgb 11.0 L D Hct 32.4 L MCV 87.2 MCH 29.5 MCHC 33.9 RDW 14.7 Plt Count 244 MPV 8.6 Neutrophils % 66.8 Lymphocytes % 14.9 Monocytes % 17.1 H D Eosinophils % 0.7 D Basophils % 0.5 Sodium 140 Potassium 3.3 L Chloride 110 H Carbon Dioxide 24 Anion Gap 6 L BUN 8 Creatinine 0.6 L Creat Clearance w eGFR > 60 POC Glucometer Random Glucose 114 H D Hemoglobin A1c % 8.7 H D Calcium 7.7 L Magnesium 2.3 D Total Bilirubin 0.2 D AST 10 L D ALT 13 Alkaline Phosphatase 39 L D Total Protein 5.6 L D Albumin 2.6 L D Urine Color Urine Appearance Urine pH Ur Specific [place] Urine Protein Urine Glucose (UA) Urine Ketones Urine Blood Urine Nitrite Urine Bilirubin Urine Urobilinogen Ur Leukocyte Esterase Urine WBC (Auto) Urine RBC (Auto) Urine Yeast 02/05/18 02/05/18 11:50 16:23 WBC RBC Hgb Hct MCV MCH MCHC RDW Plt Count MPV Neutrophils % Lymphocytes % Monocytes % Eosinophils % Basophils % Sodium Potassium Chloride Carbon Dioxide Anion Gap BUN Creatinine Creat Clearance w eGFR POC Glucometer 183 180 Random Glucose Hemoglobin A1c % Calcium Magnesium Total Bilirubin AST ALT Alkaline Phosphatase Total Protein Albumin Urine Color Urine Appearance Urine pH Ur Specific [place] Urine Protein Urine Glucose (UA) Urine Ketones Urine Blood Urine Nitrite Urine Bilirubin Urine Urobilinogen Ur Leukocyte Esterase Urine WBC (Auto) Urine RBC (Auto) Urine Yeast Active Medications Generic Name Dose Route Start Last Admin Trade Name Freq PRN Reason Stop Dose Admin Escitalopram Oxalate 20 mg 02/05/18 10:00 02/05/18 09:52 Lexapro - PO 20 mg DAILY ZANDER Administration Ceftriaxone Sodium 1 gm/ 50 mls @ 100 mls/hr 02/05/18 10:00 02/05/18 09:52 Dextrose IVPB 100 mls/hr DAILY ZANDER Administration Sodium Chloride 1,000 mls @ 100 mls/hr 02/04/18 21:15 02/05/18 14:57 Normal Saline - IV 100 mls/hr ASDIR ZANDER Administration Insulin Aspart 1 vial 02/04/18 22:00 02/05/18 16:42 Novolog Vial Sliding Scale - SQ 2 units ACHS ZANDER Administration Protocol Pantoprazole Sodium 40 mg 02/05/18 10:00 02/05/18 09:52 Protonix - PO 40 mg DAILY ZANDER Administration ASSESSMENT/PLAN: 53yo M with a PMHx of IDDM admitted for the treatment of pyelonephritis. #Sepsis 2/2 pyelonephritis -Rocephin 1g daily (day 2 of 14) -renal/bladder US WNL -IVF @100 #Gross hematuria -original and repeat UA grossly normal w/ microscopic hematuria -monitor for further episodes #Hypokalemia -3.2 -> 3.3 -repleting #IDDM -FS 60 in ED; rpt 95 -A1c 8.7 -holding levemir for now -BGM ACHS -ISS ACHS -unclear if patient taking 2 SGLT-2 inhibitors (invokana and farxiga) -patient unsure, family unsure -advised patient's to bring his meds when she visits #GERD -c/w home protonix 40 daily #FEN -NS @ 100 -monitor lytes; replete as above -DM diet #prophy -SCDs #Dispo -Admit to inpatient med/surg Visit type - Emergency Visit Emergency Visit: Yes ED Registration Date: 02/04/18 Care time: The patient presented to the Emergency Department on the above date and was hospitalized for further evaluation of their emergent condition. - New Patient This patient is new to me today: Yes Date on this admission: 02/05/18 - Critical Care Critical Care patient: No
[2018-02-06] MEDS: SODIUM CHLORIDE 1,000 ML IV SCH ×4 (02:52→22:01)
[2018-02-06] MEDS: INSULIN SLIDING SCALE (NOVOLOG) 1 VIAL SQ SCH ×3 (06:18→17:31)
[2018-02-06 07:21] LABS: EOS % 2.1 % (0-4.5); HEMATOCRIT 33.1 % (35.4-49); LYMPH % 20.6 % (8-40); MCH 29.1 pg (25.7-33.7); MCHC 33.4 g/dl (32.0-35.9); MEAN CELL VOLUME 87.2 fl (80-96); MEAN PLT VOLUME 8.5 fl (7.5-11.1); MONO % 15.3 % (3.8-10.2); PLATELET COUNT 254 K/MM3 (134-434); RBC 3.79 M/mm3 (4.00-5.60); RDW 14.8 % (11.9-15.9); WHITE BLOOD COUNT 6.4 K/mm3 (4.0-10.0)
--- NOTE | 2018-02-06 07:34 | PN ---
Physical Exam: SUBJECTIVE: Patient seen and examined no complaints this morning denies chest pain, headache, abd pain, dysuria, hematuria eating/ambulating/toileting without difficulty called family yesterday to bring in meds, they did not. he will call his this morning to bring in home medications. OBJECTIVE: Vital Signs Period Temp Pulse Resp BP Sys/Javed Pulse Ox Last 24 Hr 98.4 F-100.4 F 64-69 18-20 90-114/58-78 98-98 GENERAL: The patient is awake, alert, and fully oriented, in no acute distress. HEAD: Normal with no signs of trauma. EYES: PERRL, extraocular movements intact, sclera anicteric, conjunctiva clear. No ptosis. ENT: oropharynx clear without exudates, moist mucous membranes. NECK: Trachea midline, full range of motion, supple. LUNGS: Breath sounds equal, clear to auscultation bilaterally, no wheezes, no crackles, no accessory muscle use. HEART: Regular rate and rhythm, S1, S2 without murmur, rub or gallop. ABDOMEN: Soft, nontender, nondistended, normoactive bowel sounds, no guarding, no rebound, no hepatosplenomegaly, no masses. EXTREMITIES: 2+ radial and DP pulses, warm, well-perfused, no edema. NEUROLOGICAL: Cranial nerves II through XII grossly intact. 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 SKIN: Warm, dry, normal turgor, no rashes or lesions noted Laboratory Results - last 24 hr 02/05/18 02/05/18 02/05/18 06:00 06:40 07:00 WBC 7.9 D RBC 3.71 L Hgb 11.0 L D Hct 32.4 L MCV 87.2 MCH 29.5 MCHC 33.9 RDW 14.7 Plt Count 244 MPV 8.6 Neutrophils % 66.8 Lymphocytes % 14.9 Monocytes % 17.1 H D Eosinophils % 0.7 D Basophils % 0.5 Sodium Potassium Chloride Carbon Dioxide Anion Gap BUN Creatinine Creat Clearance w eGFR POC Glucometer Random Glucose Hemoglobin A1c % 8.7 H D Calcium Magnesium Total Bilirubin AST ALT Alkaline Phosphatase Total Protein Albumin Urine Color Straw Urine Appearance Clear Urine pH 6.0 Ur Specific [place] 1.013 Urine Protein Negative Urine Glucose (UA) 3+ H Urine Ketones Negative Urine Blood 1+ H Urine Nitrite Negative Urine Bilirubin Negative Urine Urobilinogen Negative Ur Leukocyte Esterase 1+ H D Urine WBC (Auto) 48 Urine RBC (Auto) 2 Urine Yeast Rare 02/05/18 02/05/18 02/05/18 07:00 11:50 16:23 WBC RBC Hgb Hct MCV MCH MCHC RDW Plt Count MPV Neutrophils % Lymphocytes % Monocytes % Eosinophils % Basophils % Sodium 140 Potassium 3.3 L Chloride 110 H Carbon Dioxide 24 Anion Gap 6 L BUN 8 Creatinine 0.6 L Creat Clearance w eGFR > 60 POC Glucometer 183 180 Random Glucose 114 H D Hemoglobin A1c % Calcium 7.7 L Magnesium 2.3 D Total Bilirubin 0.2 D AST 10 L D ALT 13 Alkaline Phosphatase 39 L D Total Protein 5.6 L D Albumin 2.6 L D Urine Color Urine Appearance Urine pH Ur Specific [place] Urine Protein Urine Glucose (UA) Urine Ketones Urine Blood Urine Nitrite Urine Bilirubin Urine Urobilinogen Ur Leukocyte Esterase Urine WBC (Auto) Urine RBC (Auto) Urine Yeast 02/05/18 02/06/18 21:12 06:00 WBC 6.4 RBC 3.79 L Hgb 11.0 L Hct 33.1 L MCV 87.2 MCH 29.1 MCHC 33.4 RDW 14.8 Plt Count 254 MPV 8.5 Neutrophils % 61.0 Lymphocytes % 20.6 D Monocytes % 15.3 H Eosinophils % 2.1 D Basophils % 1.0 Sodium Potassium Chloride Carbon Dioxide Anion Gap BUN Creatinine Creat Clearance w eGFR POC Glucometer 228 Random Glucose Hemoglobin A1c % Calcium Magnesium Total Bilirubin AST ALT Alkaline Phosphatase Total Protein Albumin Urine Color Urine Appearance Urine pH Ur Specific [place] Urine Protein Urine Glucose (UA) Urine Ketones Urine Blood Urine Nitrite Urine Bilirubin Urine Urobilinogen Ur Leukocyte Esterase Urine WBC (Auto) Urine RBC (Auto) Urine Yeast Active Medications Acetaminophen (Tylenol -) 650 mg PO Q6H PRN PRN Reason: FEVER Escitalopram Oxalate (Lexapro -) 20 mg PO DAILY [facility] Last Admin: 02/05/18 09:52 Dose: 20 mg Ceftriaxone Sodium 1 gm/ (Dextrose) 50 mls @ 100 mls/hr IVPB DAILY [facility] Last Admin: 02/05/18 09:52 Dose: 100 mls/hr Sodium Chloride (Normal Saline -) 1,000 mls @ 100 mls/hr IV ASDIR [facility] Last Admin: 02/06/18 02:52 Dose: 100 mls/hr Insulin Aspart (Novolog Vial Sliding Scale -) 1 vial SQ [facility] PRN Reason: Protocol Last Admin: 02/06/18 06:18 Dose: 2 units Pantoprazole Sodium (Protonix -) 40 mg PO DAILY [facility] Last Admin: 02/05/18 09:52 Dose: 40 mg ASSESSMENT/PLAN: 53yo M with DM on insulin admitted for the treatment of pyelonephritis. - brought in home meds: pt is on farxiga 5mg qd, levemir 20AM and 16PM, lexapro 20mg po qd, protonix 40mg po qd, she is unclear as to how much novolog he uses #Sepsis 2/2 pyelonephritis -Rocephin 1g daily (day 2 of 14), awaiting urine cultures -renal/bladder US WNL -IVF @100 #Gross hematuria -original and repeat UA grossly normal w/ microscopic hematuria, improving WBC, continue abx -monitor for further episodes #DM - uncontrolled -A1c 8.7 -holding levemir during hospital stay -BGM ACHS -ISS ACHS -patient on farxiga 10mg ->cut in half, 5mg po qd at home #GERD -c/w home protonix 40 daily #FEN -NS @ 100 -monitor lytes; replete as above -DM diet #prophy -SCDs, encourge ambulation, given hematuria would not place on medical ac #Dispo -once culture and sensitivities for urine return, can be dc'd with outpatient abx course and urology f/u Visit type - Emergency Visit Emergency Visit: No - New Patient This patient is new to me today: Yes Date on this admission: 02/06/18 - Critical Care Critical Care patient: No - Discharge Referral Referred to [facility] No
[2018-02-06 07:55] LABS: ANION GAP 5 (8-16); BLOOD UREA NITROGEN 7 mg/dL (7-18); CALCIUM 7.9 mg/dL (8.5-10.1); CHLORIDE 110 mmol/L (98-107); CO2 26 mmol/L (21-32); CREATININE 0.5 mg/dL (0.7-1.3); GLUCOSE,RANDOM 174 mg/dL (74-106); SODIUM 141 mmol/L (136-145)
[2018-02-06] MEDS ORDERED: cefTRIAXone SODIUM 1 GM VIAL ONE (10:38)
[2018-02-06] MEDS ORDERED: DEXTROSE 5%-WATER - 50 ML IVPB ONE (10:39)
[2018-02-06] MEDS: ESCITALOPRAM OXALATE 20 MG TABLET (FP) PO SCH (10:42)
[2018-02-06] MEDS: PANTOPRAZOLE 40 MG TABLET (FP) PO SCH (10:42)
[2018-02-06] MEDS: CEFTRIAXONE 1 GM in DEXTROSE 5%-WATER - 50 ML IVPB SCH (10:42)
--- NOTE | 2018-02-06 11:55 | PN ---
Teaching Attending Note Name of Resident: Casey Swanson ATTENDING PHYSICIAN STATEMENT I saw and evaluated the patient. I reviewed the resident's note and discussed the case with the resident. I agree with the resident's findings and plan as documented. SUBJECTIVE: no fever or chills . has no Abd pain, flank pain or dysuria OBJECTIVE: NAD , MMM Cv: RRR Lungs: CTAB Abd: soft, NT, ND , NL BS , no CVA tenderness ext: no edema or erythema ASSESSMENT AND PLAN: 53 y/o man with h/o Dm , GERD, and depression who presented with hematuria, L flank pain and fever , he was found to have acute pyelonephritis 1- Sepsis due to acute pyelonephritis: improved - cont ceftriaxone day 2 - follow blood and urine cx( non lactose fermenting GNR) - f/u with uro as outpt 2- DM : hypoglycemic at presentation, likely due to sepsis, poor po intake while sick and continued use of insulin . -start low dose of levemir this HS. - dc HS coverage of SSI - family to bring in his med list 3- depression , cont lexapro HLOC pending urine cx results
[2018-02-06] MEDS ORDERED: INSULIN (LEVEMIR) 100 UNITS/ML UNITS SQ SCH (22:00)
[2018-02-06] MEDS ORDERED: PT OWN MED DRAWER 7, Y5N ONE (22:22)
[2018-02-07] MEDS ORDERED: INSULIN (NOVOLOG) ASPART 100 UNITS/ML 10ML VIAL ONE ×3 (05:20→13:07)
[2018-02-07] MEDS: INSULIN SLIDING SCALE (NOVOLOG) 1 VIAL SQ SCH ×2 (06:34→13:10)
[2018-02-07 07:24] LABS: BASO % 1.1 % (0-2.0); EOS % 2.6 % (0-4.5); HEMATOCRIT 32.8 % (35.4-49); LYMPH % 22.4 % (8-40); MCH 29.3 pg (25.7-33.7); MCHC 33.7 g/dl (32.0-35.9); MEAN CELL VOLUME 87.1 fl (80-96); MEAN PLT VOLUME 8.2 fl (7.5-11.1); MONO % 11.9 % (3.8-10.2); PLATELET COUNT 277 K/MM3 (134-434); RBC 3.76 M/mm3 (4.00-5.60); RDW 14.7 % (11.9-15.9); WHITE BLOOD COUNT 6.1 K/mm3 (4.0-10.0)
[2018-02-07 07:57] LABS: ANION GAP 7 (8-16); BLOOD UREA NITROGEN 6 mg/dL (7-18); CALCIUM 7.9 mg/dL (8.5-10.1); CHLORIDE 108 mmol/L (98-107); CO2 27 mmol/L (21-32); CREATININE 0.5 mg/dL (0.7-1.3); GLUCOSE,RANDOM 159 mg/dL (74-106); SODIUM 142 mmol/L (136-145)
[2018-02-07] MEDS: SODIUM CHLORIDE 1,000 ML IV SCH (08:22)
[2018-02-07] MEDS ORDERED: cefTRIAXone SODIUM 1 GM VIAL ONE (09:27)
[2018-02-07] MEDS ORDERED: DEXTROSE 5%-WATER - 50 ML IVPB ONE (09:28)
[2018-02-07] MEDS: ESCITALOPRAM OXALATE 20 MG TABLET (FP) PO SCH (09:50)
[2018-02-07] MEDS: PANTOPRAZOLE 40 MG TABLET (FP) PO SCH (09:50)
[2018-02-07] MEDS: CEFTRIAXONE 1 GM in DEXTROSE 5%-WATER - 50 ML IVPB SCH (09:50)
[2018-02-07 13:09] VITALS: BP 103/55; PULSE 61; TEMP 98.2
--- NOTE | 2018-02-07 15:07 | PN ---
Progress Note (short form) - Note Progress Note: Subjective:no pain or fever or chills Last Vital Signs Temp Pulse Resp BP Pulse Ox 98.2 F 61 20 103/55 98 02/07/18 13:07 02/07/18 13:07 02/07/18 13:07 02/07/18 13:07 02/06/18 20:48 Laboratory Results - last 24 hr 02/06/18 02/06/18 02/07/18 17:11 22:03 05:55 WBC RBC Hgb Hct MCV MCH MCHC RDW Plt Count MPV Neutrophils % Lymphocytes % Monocytes % Eosinophils % Basophils % Sodium Potassium Chloride Carbon Dioxide Anion Gap BUN Creatinine POC Glucometer 199 240 171 Random Glucose Calcium 02/07/18 02/07/18 02/07/18 06:00 06:00 11:02 WBC 6.1 RBC 3.76 L Hgb 11.0 L Hct 32.8 L MCV 87.1 MCH 29.3 MCHC 33.7 RDW 14.7 Plt Count 277 MPV 8.2 Neutrophils % 62.0 Lymphocytes % 22.4 Monocytes % 11.9 H Eosinophils % 2.6 Basophils % 1.1 Sodium 142 Potassium 4.0 Chloride 108 H Carbon Dioxide 27 Anion Gap 7 L BUN 6 L Creatinine 0.5 L POC Glucometer 223 Random Glucose 159 H Calcium 7.9 L Microbiology 02/04/18 17:50 Urine - Urine Clean Catch Urine Culture - Final Escherichia Coli 02/04/18 18:00 Blood - Peripheral Venous Blood Culture - Preliminary NO GROWTH OBTAINED AFTER 48 HOURS, INCUBATION TO CONTINUE FOR 3 DAYS. 02/04/18 17:50 Blood - Peripheral Venous Blood Culture - Preliminary NO GROWTH OBTAINED AFTER 48 HOURS, INCUBATION TO CONTINUE FOR 3 DAYS. Physical Exam: NAD , MMM Cv: RRR Lungs: CTAB Abd: soft, NT, ND , NL BS , no CVA tenderness ext: no edema or erythema ASSESSMENT AND PLAN: 53 y/o man with h/o Dm , GERD, and depression who presented with hematuria, L flank pain and fever , he was found to have acute pyelonephritis 1- Sepsis due to acute pyelonephritis: improved. urine cx with matos sensitive E coli. -day 3 of Abx. cont wih vantin x 7 more days - blood cx neg to date f/u with uro as out pt 2- DM :hypoglycemia resolved. spoke to his pharmacy, and his daughter. he is on levemir 20 Am and 16 HS but insurance has stopped covering levemir. PCP already prescribed Novolog 10 TID AC for after he runs out or levemir. his PPC gives him A DM pill smaples ( does not remember the name ) - for now , will cont home levemir at dc with close f/u withhis PMD - explained to him and his daughter 3- depression , cont lexapro dc home . f/u with PCP and urology Visit type - Emergency Visit Emergency Visit: Yes ED Registration Date: 02/04/18 Care time: The patient presented to the Emergency Department on the above date and was hospitalized for further evaluation of their emergent condition. - New Patient This patient is new to me today: No - Critical Care Critical Care patient: No
--- NOTE | 2018-02-08 21:32 | DS ---
Physical Exam: HOSPITAL COURSE: Date of Admission:02/04/18 The patient is a 53yo M with a PMHx of IDDM who presented to the ED c/o fevers and chills for the past 2 days associated with left flank pain. In the ED, the patient was found to be febrile to 102.7 and tachycardic into the 90's. He was also found to have a leukocytosis to 12.3 and a UA indicative of a UTI. The patient was admitted for the further workup and treatment of pyelonephitis. A renal and bladder ultrasound showed normal findings. The patient was treated with Ceftriaxone and Normal saline. A blood culture showed no growth. A urine culture grew matos sensitive E. Coli. The patient improved on the above treatment. His flank pain and leukocytosis resolved and he remained afebrile for > 24 hrs. The patient was discharged home on 7 days of Vantin 200mg PO Q12H. He was advised to follow up with his PCP as well as a urologist within one week of discharge home. He was informed that his blood culture was still pending final read and that either he or his doctor should follow up the results. Date of Discharge: 02/08/18 Minutes to complete discharge: 68 Discharge Summary Reason For Visit: ACUTE PYELONEPHRITIS Condition: Improved - Instructions Diet, Activity, Other Instructions: - you were treated for sepsis from infection in your kidney - take vantin ( antibiotic) every 12 hours for 7 more days . start tomorrow morning . - if you have fever or hcills, or flank pain or not feelig well , carlos come back to ER - continue to take your levemir as prescribed. - continue to follow with your primary care doctor regarding your sugar control - your blood culture showed no growth after 48 hours of incubatin. the final results will be back after 3 days . PCP need to follow results please Referrals: Neal Muniz MD [Staff Physician] - 2 Weeks Latesha Sanderson MD [Primary Care Provider] - 1 Week Disposition: HOME - Home Medications Comprehensive Discharge Medication List: Ambulatory Orders Insulin (Levemir) [Levemir Flexpen -] 20 units SQ AM 08/19/15 Escitalopram Oxalate [Lexapro -] 20 mg PO DAILY 02/04/18 Insulin Detemir [Levemir Flextouch] 16 unit SQ HS 04/19/18 Pantoprazole Sodium [Protonix] 40 mg PO DAILY 02/04/18 Cefpodoxime Proxetil [Vantin -] 200 mg PO Q12H #14 tablet 02/07/18 This patient is new to me today: No Emergency Visit: Yes ED Registration Date: 02/04/18 Care time: The patient presented to the Emergency Department on the above date and was hospitalized for further evaluation of their emergent condition. Critical Care patient: No - Discharge Referral Referred to [facility] No
== END 2018-02-07 14:15 | disposition home or self-care (01) | DRG 720 ==
LOC: JER 17:37 → JERBED 20:05 → J7W 23:24
PROVIDERS: ADMIT Internal Medicine; ATTEND Internal Medicine
DX: A41.9 Sepsis, unspecified organism (principal); N10 Acute pyelonephritis; R31.0 Gross hematuria; E87.6 Hypokalemia; K21.9 Gastro-esophageal reflux disease without esophagitis; F32.9 Major depressive disorder, single episode, unspecified; E11.649 Type 2 diabetes mellitus with hypoglycemia without coma; D72.829 Elevated white blood cell count, unspecified
CPT/HCPCS: 36415; 71045-TC-FY; 76775-TC; 76856-TC; 80048; 80053; 81003; 81015; 82962; 83036; 83605; 83735; 84484; 85025; 85610; 85730; 87040; 87086; 87186; 93005; 93010; 99283-25; J0131; J7030

== ENCOUNTER 2019-09-08 23:23 | Inpatient (IN) | payer OTHER ==
[2019-09-09] MEDS ORDERED: SODIUM CHLORIDE 1,000 ML IV STA (00:20)
--- NOTE | 2019-09-09 00:20 | PDOC ---
History of Present Illness - General Chief Complaint: Pain, Acute Stated Complaint: ABDOMINAL PAIN Time Seen by Provider: 09/08/19 23:38 - History of Present Illness Initial Comments: Elian Person is a 54yo man with a PMH of IDDM, pancreatitis, s/p cholecystectomy, chronic back pain, left hip fracture (never repaired) who presents with diffuse abdominal pain since noon today. He reports that he was having an argument and was upset around noon. He then had acute onset of upper abdominal pain along with nausea, lightheadedness, sweating and sudden change in his vision. He states that he heard something "burst" in his abdomen. Most of the symptoms resolved after a few minutes, but he has had continued upper abdominal pain, nausea, and a "buzzing" sound in his head since noon. He took 5x Tylenol tablets and 4x ibuprofen tablets approximately 3 hours prior to presenting to the ED with some relief of pain. Mr Person says that he used to take insulin, but he stopped eating sugar so no longer takes it. He does not check his glucose at home. He denies any vomiting, change in bowel habits, chest pain, difficulty breathing, or recent fever. He does endorse excessive thirst recently and states that his vision has been "grainy" when he stands this afternoon. Past History - Past Medical History Allergies/Adverse Reactions: Allergies Allergy/AdvReac Type Severity Reaction Status Date / Time No Known Allergies Allergy Verified 09/08/19 23:36 Home Medications: Ambulatory Orders Insulin (Levemir) [Levemir Flexpen -] 20 units SQ AM 08/19/15 Escitalopram Oxalate [Lexapro -] 20 mg PO DAILY 02/04/18 Insulin Detemir [Levemir Flextouch] 16 unit SQ HS 02/04/18 Pantoprazole Sodium [Protonix] 40 mg PO DAILY 02/04/18 Cefpodoxime Proxetil [Vantin -] 200 mg PO Q12H #14 tablet 02/07/18 Anemia: No Asthma: No Cancer: No Cardiac Disorders: No CVA: No COPD: No CHF: No DVT: No Diabetes: Yes (NIDDM,DIABETIC NEUROPATHY) GI Disorders: Yes (GERD,COLONIC POLYPS,DIVERTICULOSIS) Disorders: No HTN: Yes Hypercholesterolemia: Yes Kidney Stones: No Seizures: No Thyroid Disease: No - Surgical History Appendectomy: Yes Cholecystectomy: Yes (LAPAROSCOPIC CHOLECYSTECTOMY) Orthopedic Surgery: No (lt. hand surgery (job injury)) - Reproductive History Testicular Surgery: No - Psycho Social/Smoking Cessation Hx Smoking History: Never smoked Have you smoked in the past 12 months: No Number of Cigarettes Smoked Daily: 10 If you are a former smoker, when did you quit?: about 2years ago Information on smoking cessation initiated: No 'Breaking Loose' booklet given: 01/30/16 Hx Alcohol Use: No Drug/Substance Use Hx: No Substance Use Type: Alcohol Hx Substance Use Treatment: No Review of Systems - Review of Systems Comments:: General: No fevers, no chills, no weight or appetite change, + malaise HEENT: + vision change today, no changes in hearing, no congestion, no sore throat CV: No chest pain, no palpitations, no LE edema Pulm: No SOB, no cough, no wheezing GI: +nausea, no vomiting, no change in bowel habits, no melena, +abd pain : No frequency, no urgency, no dysuria Musc: No back pain, no joint swelling, no recent injury Skin: No rash, no lesions, no erythema Endo: No excessive thirst, no heat/cold intolerance Heme: No unusual bruising or bleeding, no swollen glands Neuro: No syncope, no numbness/tingling, no focal weakness Vasc: No claudication Psych: No recent change in mood, no SI or HI *Physical Exam - Vital Signs Last Vital Signs Temp Pulse Resp BP Pulse Ox 99.2 F 98 H 20 112/79 96 09/08/19 23:36 09/08/19 23:36 09/08/19 23:36 09/08/19 23:36 09/08/19 23:36 - Physical Exam Comments: General: Comfortable, no acute distress HEENT: Atraumatic, PERRL, EOMI, MMM, voice normal, normal neck ROM Cards: RRR, no murmur appreciated Pulm: Comfortable on room air, clear to auscultation bilaterally Abd: Soft, +mild TTP in b/l upper abdomen, nondistended : No CVA tenderness Ext: Atraumatic. No LE edema. ROM intact. 1cm wound on plantar surface of rt foot without drainage, erythema, or tenderness Vasc: Extremities WWP Neuro: A&Ox3, CN grossly intact, normal speech, motor/sensory grossly intact and symmetric Psych: Mood appropriate to situation ED Treatment Course - LABORATORY CBC & Chemistry Diagram: 09/09/19 00:42 09/09/19 00:42 Medical Decision Making - Medical Decision Making 09/09/19 00:12 Elian Person is a 54yo man with a PMH of IDDM, s/p cholecystectomy, pancreatitis with chronic back pain, left hip fracture (never repaired) who presents with diffuse abdominal pain and nausea since noon today. He additionally reports lightheadedness, sweating and vision changes initially, but these have since resolved. - Broad differential including DKA, acute on chronic pancreatitis, gastritis, ACS, dehydration possibly due to poor DM control - CBC, CMP, UA, trop, EGK, ketones, lipase - Relatively benign exam, only mild TTP in upper abdomen - Pt took pain medication 3-4 hours ago, will hold off on additional meds 09/09/19 01:48 - Labs reviewed. Notable for leukocytosis to 15, glucose 495, no gap, beta hydroxybuterate 24. Lipase 88 - Hyperglycemic with ketones but no acidosis or gap - No clear cause of abdominal pain, will send for CT abd/pelvis w/ contrast - 1L NS, 5u insulin for hyperglycemia 09/09/19 03:17 - CT notes chronic pancreatitis; no acute abnormalities seen - Will reassess - Will be admitted for management of hyperglycemia 09/09/19 03:40 - Abd pain increased, now 07/28. Pt w/ voluntary guarding in upper abdomen - 4mg morphine ordered for pain - Repeat fingerstick - Additional NS bolus 09/09/19 04:01 - Repeat glucose 332 - Sign out given to Dr Sinha. Will accept to med/surg on Dr Marroquin's service 09/09/19 05:10 - Continued 07/28 pain. Minimal improvement from initial dose of morphine - Additional 4mg morphine, IV acetaminophen ordered for pain - Pt reminded to provide urine sample Discussed with Dr Neeraj Arguello PGY2 Discharge - Discharge Information Problems reviewed: Yes Clinical Impression/Diagnosis: Chronic pancreatitis Abdominal pain Qualifiers: Abdominal location: upper abdomen, unspecified Qualified Code(s): R10.10 - Upper abdominal pain, unspecified Leukocytosis Qualifiers: Leukocytosis type: unspecified Qualified Code(s): D72.829 - Elevated white blood cell count, unspecified Condition: Stable - Admission Yes - Follow up/Referral - Patient Discharge Instructions - Post Discharge Activity
[2019-09-09] MEDS ORDERED: MIDAZOLAM HCL 2 MG/2 ML SINGLE DOSE VIAL IVPUSH ONE (00:38)
[2019-09-09 01:00] LABS: BASO % 0.4 % (0-2.0); EOS % 0.1 % (0-4.5); HEMATOCRIT 37.9 % (35.4-49); LYMPH % 5.5 % (8-40); MCH 27.1 pg (25.7-33.7); MCHC 31.7 g/dl (32.0-35.9); MEAN CELL VOLUME 85.5 fl (80-96); MEAN PLT VOLUME 9.6 fl (7.5-11.1); MONO % 5.8 % (3.8-10.2); NEUT % 88.2 % (42.8-82.8); PLATELET COUNT 222 K/MM3 (134-434); RBC 4.43 M/mm3 (4.00-5.60); RDW 16.7 % (11.9-15.9); WHITE BLOOD COUNT 15.6 K/mm3 (4.0-10.0)
[2019-09-09 01:40] LABS: ALBUMIN 3.4 g/dl (3.4-5.0); BILIRUBIN,TOTAL 0.4 mg/dL (0.2-1); BLOOD UREA NITROGEN 14.2 mg/dL (7-18); CALCIUM 9.3 mg/dL (8.5-10.1); CREATININE 0.9 mg/dL (0.55-1.3); POTASSIUM 3.8 mmol/L (3.5-5.1); TOT PROT 6.6 g/dl (6.4-8.2)
--- NOTE | 2019-09-09 02:19 | PDOC ---
Attending Attestation - Resident Resident Name: Nanette Arguello - ED Attending Attestation I have performed the following: I have examined & evaluated the patient, The case was reviewed & discussed with the resident, I agree w/resident's findings & plan, Exceptions are as noted - HPI HPI: 09/09/19 06:20 Agree with resident HPI - Physicial Exam PE: 09/09/19 06:20 Agree with resident exam - Medical Decision Making 09/09/19 06:21 Rapidly progressive epigastric pain radiating to back, a/w nausea w/o vomiting, +diaphoresis, lightheaded DKA, pancreatitis, gastritis?, AAA f/u labs, IVF Analgesia +hyperglycemia, no gap, +ketone CT with chronic pancreatitis, no aneurysm Patient's abdominal pain worsening on re-eval analgesia Will admit for intractable pain
[2019-09-09] MEDS ORDERED: INSULIN REGULAR HUMAN 100 UNITS/ML *VIAL SQ ONE (03:00)
[2019-09-09] MEDS ORDERED: morphine CARPU-JECT 4 MG/1 ML DISP.SYRIN IVPUSH ONE ×2 (03:35→05:05)
[2019-09-09] MEDS ORDERED: SODIUM CHLORIDE 0.9% 500 ML INFUS.BAG IV ONE (03:35)
[2019-09-09] MEDS ORDERED: morphine SULFATE 4 MG/ML VIAL ONE ×2 (03:48→05:14)
--- NOTE | 2019-09-09 04:00 | PN ---
Teaching Attending Note Name of Resident: Marck Hidalgo ATTENDING PHYSICIAN STATEMENT I saw and evaluated the patient. I reviewed the resident's note and discussed the case with the resident. I agree with the resident's findings and plan as documented. SUBJECTIVE: Patient is a 54 year old man with a PMH of Insulin-treated DM, Pancreatitis, GERD, HLD, Appendectomy, Cholecystectomy, Chronic back pain, Left hip fracture ( never repaired) and Diabetic neuropathy who presents with diffuse abdominal pain since noon today. He reports that he was having an argument and was upset around noon. He then had acute onset of upper abdominal pain along with nausea, lightheadedness, sweating and sudden change in his vision. He states that he heard something "burst" in his abdomen. Most of the symptoms resolved after a few minutes, but he has had continued upper abdominal pain, nausea, and a "buzzing" sound in his head since noon. He took 5x Tylenol tablets and 4x ibuprofen tablets approximately 3 hours prior to presenting to the ER with some relief of pain. He used to take insulin, but says he stopped eating sugar so no longer takes insulin. He does not check his glucose at home. Denies vomiting, change in bowel habits, chest pain, difficulty breathing, or recent fever. He does have excessive thirst recently and states that his vision has been "grainy " when he stands up. OBJECTIVE: Alert Vital Signs Period Temp Pulse Resp BP Sys/Javed Pulse Ox Last 24 Hr 99.2 F 98 20 112/79 96 HEENT: No Jaundice, eye redness or discharge, PERRLA, EOMI. Normocephalic, atraumatic. External ears are normal and hearing is grossly intact. No nasal discharge. Neck: Supple, nontender. No palpable adenopathy or thyromegaly. No JVD Chest: Good effort. Clear to auscultation and percussion. Heart: Regular. No S3, rub or murmur Abdomen: Not distended, soft, upper abdominal tenderness and no HSM. No rebound ; +guarding. Normal bowel sounds. Ext: Peripheral pulses intact. No leg edema. Skin: Warm and dry. No petechiae, rash or ecchymosis. Neuro: Alert. Oriented x3. CN 2-12 grossly intact. Sensation grossly intact in all four extremities and DTR are symmetric. Psych: Appropriate mood and affect. Good insight. Home Medications Medication Instructions Recorded Insulin (Levemir) [Levemir Flexpen 20 units SQ AM 08/19/15 -] Escitalopram Oxalate [Lexapro -] 20 mg PO DAILY 02/04/18 Insulin Detemir [Levemir Flextouch] 16 unit SQ HS 02/04/18 Pantoprazole Sodium [Protonix] 40 mg PO DAILY 02/04/18 Cefpodoxime Proxetil [Vantin -] 200 mg PO Q12H #14 tablet 02/07/18 Abnormal Lab Results 09/09/19 09/09/19 09/09/19 00:42 00:42 00:42 WBC 15.6 H MCHC 31.7 L RDW 16.7 H Absolute Neuts (auto) 13.8 H Neutrophils % 88.2 H D Lymphocytes % 5.5 L D Sodium 133 L Random Glucose 495 H* AST 8 L Beta-Hydroxybutyrate 24.2 H Salicylates 09/09/19 00:42 WBC MCHC RDW Absolute Neuts (auto) Neutrophils % Lymphocytes % Sodium Random Glucose AST Beta-Hydroxybutyrate Salicylates 1.9 L ASSESSMENT AND PLAN: 1. Acute on Chronic Pancreatitis/?Impacted Pancreatic Duct Stone - Preliminary report of CT abdomen/pelvis shows findings of chronic pancreatitis, dilated pancreatic duct with a stone. Leukocytosis is unexplained - no pancreatic abscess reported, or infiltrates on CXR and urinalysis is pending. In the ER he got Versed, IV Tylenol, SQ insulin, IV morphine and IV NS. Will repeat CBC, continue with IV LR at 150 ml/hour, use IV morphine for pain control, and consult GI for possible ERCP. Will continue comprehensive care for all of patients comorbid conditions. 2. Uncontrolled DM For now, we will hold the home diabetes drugs and implement sliding scale insulin regimen; hydrate with IV LR and treat with KCL. Provide comprehensive diabetes care with patient teaching and counseling about the importance of adherence to prescribed diabetes regimen, euglycemia, eye care and foot care. Will restart his original insulin regimen that he stopped. 3. DVT prophylaxis - Lovenox 40 mg SQ q 24 hours - hold and use SCD if going for procedure. 4. Advance directives - Full code
--- NOTE | 2019-09-09 04:36 | HP ---
CHIEF COMPLAINT: abdominal pain PCP: none HISTORY OF PRESENT ILLNESS: 54 y/o male w PMH insulin treated DM (off insulin for 4 months d/t lack of insurance) and chronic pancreatitis c/o abdominal pain since noon 08 Sep 1029. He states that he had a cheese and bread breakfast and shortly after felt mid epigastric stabbing pain. The pain radiates to his mid-back. He took 5 acetominophen and 4 ibuprofen, which temporarily relieved the pain. Associated symptoms include lethargy and nausea. He denies vomiting and diarrhea. No new foods, no sick contacts, and no recent travel. He did not experience SOB or CP. He denies dysuria and NVFD. ER course was notable for: (1) Gluc 495 (2) WBC 15.6 (3) Ab/pelv CT: 11mm stone in prox. pancreatic duct Recent Travel: denies PAST MEDICAL HISTORY: insulin treated DM (off insulin for 4 months d/t lack of insurance) and chronic pancreatitis, LEFT hip fracture never treated PAST SURGICAL HISTORY: cholecystectomy. Colonic polyps removed 2 years ago. Social History: Smoking: Denies Alcohol: 1 beer every other day Drugs: Denies Allergies No Known Allergies Allergy (Verified 09/08/19 23:36) HOME MEDICATIONS: Home Medications Medication Instructions Recorded Insulin (Levemir) [Levemir Flexpen 20 units SQ AM 08/19/15 -] Escitalopram Oxalate [Lexapro -] 20 mg PO DAILY 02/04/18 Insulin Detemir [Levemir Flextouch] 16 unit SQ HS 02/04/18 Pantoprazole Sodium [Protonix] 40 mg PO DAILY 02/04/18 Cefpodoxime Proxetil [Vantin -] 200 mg PO Q12H #14 tablet 02/07/18 REVIEW OF SYSTEMS CONSTITUTIONAL: Absent: fever, chills, diaphoresis, generalized weakness, malaise, loss of appetite, weight change HEENT: Absent: rhinorrhea, nasal congestion, throat pain, throat swelling, difficulty swallowing, mouth swelling, ear pain, eye pain, visual changes CARDIOVASCULAR: Absent: chest pain, syncope, palpitations, irregular heart rate, lightheadedness , peripheral edema RESPIRATORY: Absent: cough, shortness of breath, dyspnea with exertion, orthopnea, wheezing, stridor, hemoptysis GASTROINTESTINAL: Absent: abdominal pain, abdominal distension, nausea, vomiting, diarrhea, constipation, melena, hematochezia GENITOURINARY: Absent: dysuria, frequency, urgency, hesitancy, hematuria, flank pain, genital pain MUSCULOSKELETAL: Absent: myalgia, arthralgia, joint swelling, back pain, neck pain SKIN: Absent: rash, itching, pallor HEMATOLOGIC/IMMUNOLOGIC: Absent: easy bleeding, easy bruising, lymphadenopathy, frequent infections ENDOCRINE: Absent: unexplained weight gain, unexplained weight loss, heat intolerance, cold intolerance NEUROLOGIC: Absent: headache, focal weakness or paresthesias, dizziness, unsteady gait, seizure, mental status changes, bladder or bowel incontinence PSYCHIATRIC: Absent: anxiety, depression, suicidal or homicidal ideation, hallucinations. PHYSICAL EXAMINATION Vital Signs - 24 hr 09/08/19 23:36 Temperature 99.2 F Pulse Rate 98 H Respiratory 20 Rate Blood Pressure 112/79 O2 Sat by Pulse 96 Oximetry (%) GENERAL: AOx3, sitting at edge of bed, guarding abdomen, in moderate distress HEAD: NCAT, no lymphadenopathy EYES: NASIM, EOMI, conjunctiva clear. ENT: Ears normal, nares patent, oropharynx clear without exudates. Moist mucous membranes. NECK: Normal range of motion, supple without lymphadenopathy, JVD, or masses. LUNGS: CTAB. No wheezes, and no crackles. No accessory muscle use. HEART: RRR s1 s2 ABDOMEN: Tender in RIGHT and LEFT upper quadrants. Soft, BS present in all 4 quadrants, non-distended MUSCULOSKELETAL: LEFT lower extremity inversion at hip. No CVA tenderness. UPPER EXTREMITIES: 2+ pulses, warm, well-perfused. No cyanosis. No clubbing. No peripheral edema. LOWER EXTREMITIES: 2+ pulses, warm, well-perfused. No calf tenderness. No peripheral edema. NEUROLOGICAL: Cranial nerves II-XII intact. Normal speech. Walks using walker. PSYCHIATRIC: Cooperative. Good eye contact. Appropriate mood and affect. SKIN: 1x1cm RIGHT plantar lesion. Warm, dry, normal turgor, no rashes or lesions noted, normal capillary refill. Laboratory Results - last 24 hr 09/09/19 09/09/19 09/09/19 00:42 00:42 00:42 WBC 15.6 H RBC 4.43 Hgb 12.0 Hct 37.9 D MCV 85.5 MCH 27.1 MCHC 31.7 L RDW 16.7 H Plt Count 222 MPV 9.6 D Absolute Neuts (auto) 13.8 H Neutrophils % 88.2 H D Lymphocytes % 5.5 L D Monocytes % 5.8 Eosinophils % 0.1 D Basophils % 0.4 Nucleated RBC % 0 Sodium Potassium Chloride Carbon Dioxide Anion Gap BUN Creatinine Est GFR (CKD-EPI)AfAm Est GFR (CKD-EPI)NonAf POC Glucometer Random Glucose Calcium Total Bilirubin AST ALT Alkaline Phosphatase Creatine Kinase 68 Troponin I < 0.02 Total Protein Albumin Lipase Beta-Hydroxybutyrate 24.2 H Salicylates Acetaminophen 09/09/19 09/09/19 09/09/19 00:42 00:42 03:55 WBC RBC Hgb Hct MCV MCH MCHC RDW Plt Count MPV Absolute Neuts (auto) Neutrophils % Lymphocytes % Monocytes % Eosinophils % Basophils % Nucleated RBC % Sodium 133 L Potassium 3.8 Chloride 101 Carbon Dioxide 21 Anion Gap 11 BUN 14.2 Creatinine 0.9 Est GFR (CKD-EPI)AfAm 113.41 Est GFR (CKD-EPI)NonAf 97.85 POC Glucometer 335 Random Glucose 495 H* Calcium 9.3 Total Bilirubin 0.4 AST 8 L ALT 21 Alkaline Phosphatase 55 Creatine Kinase Troponin I Total Protein 6.6 Albumin 3.4 Lipase 88 Beta-Hydroxybutyrate Salicylates 1.9 L Acetaminophen 18.8 ASSESSMENT/PLAN: 54 y/o male w PMH insulin treated DM (off insulin for 4 months d/t lack of insurance) and chronic pancreatitis c/o abdominal pain for [address] finding of dilated CBD and presence of stone in proximal pancreatic duct. Lipase WNL. Hyperglycemic with ketonuria but no acidosis or anion gap. # Pancreatic stone, dilated CBD - ERCP/MRCP - LR - Consult GI - Pain control morphine 1 mg q4h, acetominophen PRN # Hyperglycemia - LR - ISS - IV potassium # Leukocytosis - UA - Consult wound care for plantar ulcer - Repeat CBC # Hip fracture - Occurred from fall in childhood and never medically/surgically treated - PT #F/E/N - LR - Cont. to monitor - Advance diet as tolerated # DVT prophylaxis - Heparin # Disposition - Admit to med/surg Marck Hidalgo MD Visit type - Emergency Visit Emergency Visit: Yes ED Registration Date: 09/09/19 Care time: The patient presented to the Emergency Department on the above date and was hospitalized for further evaluation of their emergent condition. - New Patient This patient is new to me today: Yes Date on this admission: 09/09/19 - Critical Care Critical Care patient: No ATTENDING PHYSICIAN STATEMENT I saw and evaluated the patient. I reviewed the resident's note and discussed the case with the resident. I agree with the resident's findings and plan as documented. SUBJECTIVE: OBJECTIVE: ASSESSMENT AND PLAN:
[2019-09-09] MEDS ORDERED: SODIUM CHLORIDE 1,000 ML IV SCH (05:00)
[2019-09-09] MEDS ORDERED: ACETAMINOPHEN 1000 MG/100 ML VIAL (NON FORMULARY) IVPB ONE ×2 (05:05→11:38)
[2019-09-09] MEDS ORDERED: HEPARIN NA (PORCINE) 5,000 UNITS/ML 1ML VIAL ONE (05:15)
[2019-09-09] MEDS ORDERED: ACETAMINOPHEN INJECTION 100 ML IVPB ONE (05:15)
[2019-09-09] MEDS ORDERED: ACETAMINOPHEN 1000 MG/100 ML VIAL (NON FORMULARY) IVPB PRN (05:37)
[2019-09-09] MEDS ORDERED: MORPHINE SULFATE 2 MG/ML VIAL IVPUSH PRN ×2 (05:37→06:24)
[2019-09-09] MEDS ORDERED: HEPARIN NA (PORCINE) 5,000 UNITS/ML 1ML VIAL SQ SCH (06:00)
[2019-09-09] MEDS ORDERED: KCL 10 MEQ IVPB 10 MEQ/100 ML INFUS.BAG IVPB ONE (07:46)
[2019-09-09] MEDS: KCL 10 MEQ IVPB 10 MEQ/100 ML INFUS.BAG IVPB SCH ×2 (07:55→08:49)
[2019-09-09] MEDS: INSULIN SLIDING SCALE (NOVOLOG) 1 VIAL SQ SCH ×4 (08:50→22:22)
[2019-09-09] MEDS ORDERED: INSULIN (NOVOLOG) ASPART 100 UNITS/ML 10ML VIAL ONE (08:52)
[2019-09-09] MEDS ORDERED: ONDANSETRON 4 MG/2 ML VIAL IVPUSH ONE (11:08)
[2019-09-09] MEDS: POLYETHYLENE GLYCOL 3350 119 GM BTL PO SCH (12:25)
[2019-09-09] MEDS: INSULIN (LEVEMIR) 100 UNITS/ML UNITS SQ SCH (12:25)
[2019-09-09] MEDS: DOCUSATE SODIUM 100 MG CAPSULE (FP) PO SCH (12:25)
--- NOTE | 2019-09-09 13:01 | EKG ---
Test Reason : Blood Pressure : / mmHG Vent. Rate : 081 BPM Atrial Rate : 081 BPM P-R Int : 140 ms QRS Dur : 106 ms QT Int : 392 ms P-R-T Axes : 043 051 045 degrees QTc Int : 455 ms NORMAL SINUS RHYTHM NORMAL ECG WHEN COMPARED WITH ECG OF 04-FEB-2018 19:16, NO SIGNIFICANT CHANGE WAS FOUND Confirmed by DALE WALLER MD ([id number]) on 09/09/2019 1:01:37 PM Referred By: Confirmed By:DALE WALLER MD
[2019-09-09] MEDS ORDERED: VANCOMYCIN 1,000 MG in DEXTROSE 5%-WATER - 250 ML IVPB SCH (14:00)
[2019-09-09] MEDS ORDERED: VANCOMYCIN 1 GRAM (PRE-DOCKED) 1,000 MG/250 ML BAG IVPB SCH (14:15)
[2019-09-09] MEDS ORDERED: LACTATED RINGERS SOLUTION 1,000 ML/1,000 ML INFUS.BAG IV STA (15:14)
--- NOTE | 2019-09-09 15:17 | PN ---
Progress Note (short form) - Note Progress Note: Hospitalist Medicine Pt c/o abdominal pain and discomfort which brought him in, as well as lethargy and malaise. Denies sick contacts. With R plantar wound, without drainage. Pt states it has been foul smelling. With white count, tachycardic (113) and dropping BP. Will give 500 CC LR bolus, followed by maintenance IVF. Vitals 09/09/19 11:03 Temperature 100.3 F H Pulse Rate 111 H Respiratory 18 Rate Blood Pressure 93/54 L Physical Exam general: resting in bed, in mild distress, lying on side HEAD: NCAT, PERRLA neck: supple cardio: S1, S2 RRR. no r/m/g pulm: CTA b/l. no accessory m usage abdomen: +diffusely tender, nurys RLQ, LLQ. LE: 2+ pulses, no edema, +R plantar wound 2x2cm, without drainage Laboratory Tests 09/09/19 09/09/19 09/09/19 00:42 00:42 12:18 WBC 15.6 H Hgb 12.0 Hct 37.9 D Plt Count 222 Sodium 133 L Potassium 3.8 Chloride 101 Carbon Dioxide 21 Hemoglobin A1c % 13.2 H AST 8 L ALT 21 Imaging 09/09/19: CXR: no acute chest pathology 09/09/19: CTAP: atrophic pancreas, multiple calcifications and calculi within a markedly dilated main pancreatic duct. chronic calcific pancreatitis. no CT evidence of acute pancreatitis. fecal retention EKG: NSR, vent rate 81bpm, qtc 455ms Assessment/Plan 54 year old man with PMH of Insulin-treated DM, Pancreatitis, GERD, HLD, Appendectomy, Cholecystectomy, Chronic back pain, Left hip fracture (never repaired) and Diabetic neuropathy who presents with diffuse abdominal pain x 1 day. #Sepsis 2/2 unknown etiology -may be 2/2 infected R diabetic plantar ulcer. other sources of infection include abdomen, however CTAP without evidence of abscesses, or acute processes -uncontrolled DM -CXR clean -for now, will get ESR, CRP, MRI w/o con RLE to r/o osteo -f/u ucx, blood cx, UA, res panel, flu testing -will start vanc, zosyn -bolus 500cc LR, c/w maintenance IVF LR -Tylenol PRN for fever/pain -c/w protonix qd -ID consulted: Dr. Hollis #IDDM -started on levemir 10u SQ qd -ISS, BGM ACHS -will adjust levemir accordingly based on BGM, sliding scale use -a1c~13 #chronic pancreatitis #dilated main pancreatic duct -case discussed by team w/ Dr. Pabon -no acute intervention planned -c/t monitor -GI: Dr. Pabon #fecal retention -started on miralax, senna, colace #L hip fx -never repaired #PPX DVT: SCD's GI: protonix #Dispo admitted to med-surg <Elissa Wakefield - Last Filed: 09/09/19 15:38> - Note Progress Note: Seen and examined; discussed at length with resident team and indicated consultants. Independently reviewed all [facility] historical, PE, diagnostic, and imaging findings. Agree with above documentation and assessment and plan as documented by resident aside from as supplemented below. Patient denies to me and nursing (I speak minimal khmer but he speaks indonesian as well) that he has had any diarrhea or abdominal pain. He has foot pain with some drainage and a several month old diabetic wound that appears infected. I spoke with resident about this and we will consult podiatry and start abx. Discussed with Dr. Pabon. These findings are chronic and he can followup with Dr. Damon as an outpatient for this if he remains stable. Chronic pancreatic ductal dilation seen in previous studies as well. 10 sys ROS done and negative aside from HPI VS labs imaging reviewed NAD, AAO resting in bed Foot with quarter sized area of induration with draining. NC AT EOMI PERRLA CTAB, w/ sym exp HR wnl +s1/2 NT ND +BS CN2-12 wnl, no progressive neuro sx Normal mood, appropriate behavior A/P: Patient presents with chronic pancreatic ductal dilation, fecal retention, uncontrolled DM with neuropathy, and diabetic foot wound. Consulting ID and podiatry and starting broad spectrum abx. If no abxominal symptoms then he may be discharged with OP GI followup with Dr. Damon per Dr. Pabon. Pending podiatry consult and MRI of his foot Full Code <Aditya Sosa - Last Filed: 09/09/19 23:17>
[2019-09-09] MEDS ORDERED: PIPERACILLIN/TAZOBACTAM 3.375 GM VIAL IVPB ONE (16:13)
[2019-09-09] MEDS ORDERED: DEXTROSE 5%-WATER - 50 ML IVPB ONE (16:13)
[2019-09-09] MEDS ORDERED: IBUPROFEN 800 MG/8 ML IJ IVPB ONE (16:17)
[2019-09-09] MEDS: PIPERACILLIN/TAZOB 3.375 GM 3.375 GM in DEXTROSE 5%-WATER - 50 ML IVPB SCH ×2 (16:26→18:15)
[2019-09-09] MEDS: PANTOPRAZOLE 40 MG TABLET (FP) PO SCH (16:26)
[2019-09-09] MEDS: LACTATED RINGERS SOLUTION 1,000 ML/1,000 ML INFUS.BAG IV SCH (16:33)
--- NOTE | 2019-09-09 17:51 | PN ---
Progress Note (short form) - Note Progress Note: ID consult dictated imp/reccd 54 yo man with poorly controlled DM (not on meds) admitted with acute abdominal pain developed fever/chills with tachycardia and hypotension- responsive to IVF ct scan with chronic pancreatitis exam notable for mild abdominal pain (he got pain meds) and some erythema surrounding a right plantar foot ulcer sepsis diabetic foot ulcer abdominal pain-history of pancreatitis poorly controlled diabetes ivf vancomycin/zosyn esr/crp mri foot wound culture sent Problem List - Problems (1) Sepsis Code(s): A41.9 - SEPSIS, UNSPECIFIED ORGANISM (2) Diabetic foot ulcer Code(s): E11.621 - TYPE 2 DIABETES MELLITUS WITH FOOT ULCER; L97.509 - NON- PRESSURE CHRONIC ULCER OTH PRT UNSP FOOT W UNSP SEVERITY (3) Abdominal pain Code(s): R10.9 - UNSPECIFIED ABDOMINAL PAIN Qualifiers: Abdominal location: upper abdomen, unspecified Qualified Code(s): R10.10 - Upper abdominal pain, unspecified (4) Diabetes mellitus, insulin dependent (IDDM), uncontrolled Code(s): E10.65 - TYPE 1 DIABETES MELLITUS WITH HYPERGLYCEMIA
--- NOTE | 2019-09-09 18:18 | CONS ---
INFECTIOUS DISEASE CONSULTATION DATE OF CONSULTATION: DATE OF DICTATION: 09/09/2019 HISTORY: This is a 54-year-old man who has a history of diabetes. He has not been taking any insulin for several months now. He currently has no insurance and no way to pay for his insulin. He developed acute onset of abdominal pain yesterday. He noticed acute abdominal pain along with nausea. He did not have any vomiting. He came to the ER due to this. In the ER, he was noted to be hyperglycemic. He had a CAT scan of his abdomen and pelvis done that was notable for chronic pancreatitis with fecal retention and an increased pancreatic duct. He was noted to have an elevated white count of 15.6. While in the ER, he developed fevers, and he reports rigors where he says he was having shaking chills. This had not happened to him in the past. He does have a history of pancreatitis, and he reports this abdominal pain is very similar to that. He denies any cough. He denies any sick contacts. He denies any chest pain. He reports his abdominal pain is improved. He was last hospitalized in January 2018. At that time, he was hospitalized for pyelonephritis, and he grew E. coli in his urine and was treated with ceftriaxone. ALLERGIES: He has no known drug allergies. MEDICATIONS: He is currently taking none of his medications. PAST MEDICAL HISTORY: Notable for diabetes. He has a history of pancreatitis. He is status post left hip fracture. He never got his leg operated on, and it is shorter than his right leg. He walks with a limp. He has a history of diabetic nephropathy, hypertension, hyperlipidemia. SURGICAL HISTORY: Notable for cholecystectomy. He has had left hand surgery as well as an appendectomy. SOCIAL HISTORY: He is . He is originally from [place]. He stopped smoking about 2 years ago. He lives with his family. He has no sick contacts. He used to work for [employer] but has now been unemployed. After the hip fracture, he collected disability for a while and is currently unemployed and uninsured. REVIEW OF SYSTEMS: As per HPI. He reports rigors with his fever. PHYSICAL EXAMINATION: General: He is awake and alert. This is a pleasant man in no acute distress. Vital Signs: His current temperature is 101.6, blood pressure was as low as 93/ 54, currently 104/65 with a pulse of 102, respiratory rate is 18. He is saturating 99% on room air. He weighs 65 kg. HEENT: He is normocephalic. His eyes are anicteric. Neck: Supple. Lungs: Clear to auscultation. Heart: Regular rate and rhythm. Abdomen: Soft, nontender. He has some mild mid epigastric discomfort. There is no rebound or guarding. Extremities: Without edema. On his right foot, he has a plantar ulcer that he reports intermittent drainage with foul-smelling material. There is surrounding erythema, and there is about a 0.5-cm diameter ulcer that is about 0.5 cm deep. Lymphatics: He has no adenopathy on exam. His labs are notable for a white count of 15.6, hemoglobin 12, platelets 222. His INR is 1, his BUN 14, creatinine 0.9. His glucose was 495 with a hemoglobin A1C of 13.2. Urinalysis is pending. He has blood cultures that have been sent. He received vancomycin and Zosyn. Chest x-ray is clear. CAT scan findings are states. In summary, this is a 54-year-old man who has been admitted with: 1. Abdominal pain that he says is reminiscent of his prior pancreatitis. Would consider GI evaluation. He has acute onset of fevers and chills. The only source on exam appears to be this plantar ulcer, which I probed with a Q-tip. There is minimal purulence, but there is surrounding erythema. Concerns would be for possible Staphylococcal bacteremia as he describes rigors and chills as well as gram negative. Would complete his workup with cultures. Wound culture of the ulcer was taken. Check a sedimentation rate and a CRP. Would obtain an MRI of the foot as well. Would treat him with vancomycin and Zosyn. 2. Chronic pancreatitis with acute abdominal pain. Appears improved. Would consider GI evaluation. 3. History of diabetes. Apparently, unable to take medications due to lack of insurance, which will need to be addressed. Further recommendations to follow. USMAN CROOK M.D. [id number] MTDD
[2019-09-09 18:19] LABS: URINE APPEARANCE CLEAR; URINE BILIRUBIN NEGATIVE (NEGATIVE); URINE COLOR YELLOW; URINE GLUCOSE (UA) 3+ (NEGATIVE); URINE KETONE 1+ (NEGATIVE); URINE LEUK ESTERASE NEGATIVE (NEGATIVE); URINE NITRITE NEGATIVE (NEGATIVE); URINE PROTEIN TRACE (NEGATIVE); URINE UROBILINOGEN 0.2 mg/dL (0.2-1.0)
[2019-09-09] MEDS ORDERED: PT OWN MED DRAWER 7, Y5N ONE (20:17)
[2019-09-09] MEDS: SENNOSIDES 8.6MG TABLET (FP) PO SCH (22:23)
[2019-09-10] MEDS ORDERED: PIPERACILLIN/TAZOBACTAM 3.375 GM VIAL IVPB ONE ×3 (01:00→17:44)
[2019-09-10] MEDS ORDERED: DEXTROSE 5%-WATER - 50 ML IVPB ONE ×3 (01:01→17:44)
[2019-09-10] MEDS: PIPERACILLIN/TAZOB 3.375 GM 3.375 GM in DEXTROSE 5%-WATER - 50 ML IVPB SCH ×3 (01:10→18:45)
[2019-09-10] MEDS: ACETAMINOPHEN 325 MG TABLET (FP) PO PRN (01:10)
[2019-09-10] MEDS: VANCOMYCIN 1 GRAM (PRE-DOCKED) 1,000 MG/250 ML BAG IVPB SCH ×2 (03:08→15:24)
[2019-09-10] MEDS: INSULIN SLIDING SCALE (NOVOLOG) 1 VIAL SQ SCH ×4 (06:27→21:38)
[2019-09-10] MEDS: INSULIN (LEVEMIR) 100 UNITS/ML UNITS SQ SCH (06:28)
[2019-09-10] MEDS ORDERED: metFORMIN HCL 500 MG TABLET (FP) PO SCH (07:00)
[2019-09-10] MEDS: LACTATED RINGERS SOLUTION 1,000 ML/1,000 ML INFUS.BAG IV SCH ×2 (07:45→18:46)
[2019-09-10] MEDS: DOCUSATE SODIUM 100 MG CAPSULE (FP) PO SCH (09:41)
[2019-09-10] MEDS: PANTOPRAZOLE 40 MG TABLET (FP) PO SCH (09:42)
[2019-09-10] MEDS: POLYETHYLENE GLYCOL 3350 119 GM BTL PO SCH (09:42)
[2019-09-10 10:24] LABS: BASO % 0.3 % (0-2.0); EOS % 0.4 % (0-4.5); HEMATOCRIT 35.8 % (35.4-49); HEMOGLOBIN 11.5 GM/dL (11.7-16.9); LYMPH % 6.3 % (8-40); MCH 27.3 pg (25.7-33.7); MCHC 32.1 g/dl (32.0-35.9); MEAN CELL VOLUME 84.9 fl (80-96); MEAN PLT VOLUME 9.6 fl (7.5-11.1); MONO % 4.3 % (3.8-10.2); NEUT % 88.7 % (42.8-82.8); PLATELET COUNT 181 K/MM3 (134-434); RBC 4.21 M/mm3 (4.00-5.60); RDW 16.7 % (11.9-15.9); WHITE BLOOD COUNT 13.8 K/mm3 (4.0-10.0)
[2019-09-10 10:48] LABS: ALBUMIN 2.5 g/dl (3.4-5.0); BILIRUBIN,TOTAL 0.3 mg/dL (0.2-1); BLOOD UREA NITROGEN 7.7 mg/dL (7-18); CALCIUM 8.3 mg/dL (8.5-10.1); CREATININE 0.7 mg/dL (0.55-1.3); MAGNESIUM 1.8 mg/dL (1.8-2.4); PHOSPHOROUS 1.4 mg/dL (2.5-4.9); POTASSIUM 3.8 mmol/L (3.5-5.1); TOT PROT 5.5 g/dl (6.4-8.2)
[2019-09-10] MEDS ORDERED: INSULIN (LEVEMIR) 100 UNITS/ML UNITS SQ SCH (12:04)
--- NOTE | 2019-09-10 12:06 | PN ---
Progress Note, Physician History of Present Illness: Seen and examined at bedside. Patient had temp of 103 overnight. Endorses chills. Endorses epigastric abdominal pain. ESR WNL CRP elevated. Pending podiatry consult. Denies nausea vomiting chest pain or SOB. endorses right foot plantar pain at the area of diabetic foot ulcer. leukocytosis improving - Current Medication List Current Medications: Active Medications Acetaminophen (Tylenol -) 650 mg PO Q6H PRN PRN Reason: FEVER Last Admin: 09/10/19 01:10 Dose: 650 mg Docusate Sodium (Colace -) 100 mg PO DAILY [facility] Last Admin: 09/10/19 09:41 Dose: 100 mg Piperacillin Sod/Tazobactam (Sod 3.375 gm/ Dextrose) 50 mls @ 100 mls/hr IVPB Q8H-IV [facility]; Protocol Last Admin: 09/10/19 09:42 Dose: 100 mls/hr Lactated Ringer's (Lactated Ringers Solution) 1,000 ml in 1,000 mls @ 100 mls/ hr IV ASDIR [facility] Last Admin: 09/10/19 07:45 Dose: 100 mls/hr Vancomycin HCl (Vancomycin (Pre-Docked)) 1,000 mg in 250 mls @ 166.667 mls/hr IVPB Q12H [facility]; Protocol Last Admin: 09/10/19 03:08 Dose: 166.667 mls/hr Insulin Aspart (Novolog Vial Sliding Scale -) 1 vial SQ ACHS [facility]; Protocol Last Admin: 09/10/19 11:51 Dose: 6 unit Insulin Detemir (Levemir Vial) 15 units SQ DAILY@0700 [facility] Pantoprazole Sodium (Protonix -) 40 mg PO DAILY [facility] Last Admin: 09/10/19 09:42 Dose: 40 mg Polyethylene Glycol (Miralax (For Daily Use) -) 17 gm PO DAILY [facility] Last Admin: 09/10/19 09:42 Dose: 17 grams Senna (Senna -) 1 tab PO HS [facility] Last Admin: 09/09/19 22:23 Dose: 1 tab - Objective Vital Signs: Vital Signs Temperature 98.9 F 09/10/19 08:40 Pulse Rate 99 H 09/10/19 08:40 Respiratory Rate 18 09/10/19 08:40 Blood Pressure 93/60 09/10/19 08:40 O2 Sat by Pulse Oximetry (%) 97 09/09/19 21:00 Constitutional: Yes: Well Nourished, No Distress Eyes: Yes: EOM Intact HENT: Yes: Atraumatic, Normocephalic Neck: Yes: Supple, Trachea Midline Cardiovascular: Yes: WNL, Regular Rate and Rhythm Respiratory: Yes: WNL, Regular, CTA Bilaterally Gastrointestinal: Yes: Soft, Tenderness (epigastrium). No: Distention Extremities: Yes: Other (RLE plantar diabetic foot ulcer with purulent drainage. ) Edema: No Neurological: Yes: Alert, Oriented Labs: CBC, BMP 09/10/19 08:45 09/10/19 08:45 - ....Imaging Chest X-ray: Report Reviewed Cat Scan: Report Reviewed Impression/Plan Impression/Plan: 54 year old man with PMH of DM non compliant with insulin, chronic pancreatitis , GERD, HLD, and Diabetic neuropathy who presents with diffuse abdominal pain x 1 day found to be in sepsis possibly secondary to RLE plantar diabetic foot ulcer. Sepsis possible due to infected R diabetic plantar ulcer ESR WNL CRP elevated f/u podiatry f/u ID continue vanco and zosyn for now f/u sepsis work up-all cultures pending Flu swab negative include abdomen, however CTAP without evidence of abscesses, or acute processes MRI RLE pending IVF Hypotension could be from sepsis IVF DM Uncontrolled needs better control in setting of infection A1C 13.2 will increase basal to 15 units from 10 continue ISS chronic pancreatitis with dilated main pancreatic duct on CTAP f/u GI pain control IVF PPX DVT: SCDs. Unsure why primary team discontinued chemical PPx possibly due to anticipation of surgical intervention GI: protonix Visit type - Emergency Visit Emergency Visit: Yes ED Registration Date: 09/09/19 Care time: The patient presented to the Emergency Department on the above date and was hospitalized for further evaluation of their emergent condition. - New Patient This patient is new to me today: Yes Date on this admission: 09/10/19 - Critical Care Critical Care patient: No
--- NOTE | 2019-09-10 13:21 | CONSULT ---
Consult Consult Specialty:: podiatry Reason for Consultation:: infected right foot 1-2 months duration. - History of Present Illness Chief Complaint: infected right foot - History Source History Provided By: Medical Record Limitations to Obtaining History: Other (language barrier only speaks portuguese) - Past Medical History Gastrointestinal: Yes: Other (pancreatitis) Endocrine: Yes: Diabetes Mellitus - Past Surgical History Past Surgical History: Yes: Cholecystectomy - Alcohol/Substance Use Hx Alcohol Use: No - Smoking History Smoking history: Former smoker Have you smoked in the past 12 months: No Aproximately how many cigarettes per day: 10 If you are a former smoker, when did you quit?: 10 yrs ago Home Medications - Allergies Allergies/Adverse Reactions: Allergies Allergy/AdvReac Type Severity Reaction Status Date / Time No Known Allergies Allergy Verified 09/08/19 23:36 - Home Medications Home Medications: Ambulatory Orders Docusate Sodium [Colace -] 100 mg PO DAILY #30 capsule 09/09/19 Insulin (Levemir) [Levemir Vial] 10 units SQ DAILY 30 Days #1 units 09/09/19 Pantoprazole Sodium [Protonix] 40 mg PO DAILY #30 tablet. 09/09/19 metFORMIN HCL [Glucophage -] 500 mg PO DAILY@0700 #30 tablet 09/09/19 Physical Exam Vital Signs: Vital Signs Temperature 98.9 F 09/10/19 08:40 Pulse Rate 99 H 09/10/19 08:40 Respiratory Rate 18 09/10/19 08:40 Blood Pressure 93/60 09/10/19 08:40 O2 Sat by Pulse Oximetry (%) 97 09/09/19 21:00 Extremities: Yes: Other (ulceration plantar right foot with infected draining wound and cellulitis, +tender) Wound/Incision: Yes: Other (+ulcerated right foot with draining ulceration, vsgi , +planrfexed lateral right foot secondary to old fractures) Labs: CBC, BMP 09/10/19 08:45 09/10/19 08:45 Imaging - Results X-ray: Report Reviewed, Image Reviewed (appears to have a plantarfled 4th met head, lateral view not a true lateral) Assessment/Plan r/o om wound right foot betadine dressing to wound. ivabx as per id. will follow. awaiting mri results.
[2019-09-10] MEDS ORDERED: SODIUM PHOSPHATE - 30 MM in SODIUM CHLORIDE 500 ML IVPB ONE (13:30)
--- NOTE | 2019-09-10 16:50 | PN ---
Progress Note, Physician History of Present Illness: AWAKE, ALERT IN BED NO C/O FOOT PAIN TEMPS DOWN CULTURES PENDING ESR 19 CRP 12.3 - Current Medication List Current Medications: Active Medications Acetaminophen (Tylenol -) 650 mg PO Q6H PRN PRN Reason: FEVER Last Admin: 09/10/19 01:10 Dose: 650 mg Docusate Sodium (Colace -) 100 mg PO DAILY [facility] Last Admin: 09/10/19 09:41 Dose: 100 mg Piperacillin Sod/Tazobactam (Sod 3.375 gm/ Dextrose) 50 mls @ 100 mls/hr IVPB Q8H-IV [facility]; Protocol Last Admin: 09/10/19 09:42 Dose: 100 mls/hr Lactated Ringer's (Lactated Ringers Solution) 1,000 ml in 1,000 mls @ 100 mls/ hr IV ASDIR [facility] Last Admin: 09/10/19 07:45 Dose: 100 mls/hr Vancomycin HCl (Vancomycin (Pre-Docked)) 1,000 mg in 250 mls @ 166.667 mls/hr IVPB Q12H [facility]; Protocol Last Admin: 09/10/19 15:24 Dose: 166.667 mls/hr Sodium Phosphate 30 mm/ Sodium (Chloride) 510 mls @ 63.75 mls/hr IVPB ONCE ONE Stop: 09/10/19 21:29 Last Admin: 09/10/19 13:23 Dose: 63.75 mls/hr Insulin Aspart (Novolog Vial Sliding Scale -) 1 vial SQ ACHS [facility]; Protocol Last Admin: 09/10/19 16:45 Dose: 8 unit Insulin Detemir (Levemir Vial) 15 units SQ DAILY@0700 [facility] Pantoprazole Sodium (Protonix -) 40 mg PO DAILY [facility] Last Admin: 09/10/19 09:42 Dose: 40 mg Polyethylene Glycol (Miralax (For Daily Use) -) 17 gm PO DAILY [facility] Last Admin: 09/10/19 09:42 Dose: 17 grams Senna (Senna -) 1 tab PO HS [facility] Last Admin: 09/09/19 22:23 Dose: 1 tab - Objective Vital Signs: Vital Signs Temperature 98.4 F 09/10/19 13:00 Pulse Rate 87 09/10/19 13:00 Respiratory Rate 19 09/10/19 13:00 Blood Pressure 104/71 09/10/19 13:00 O2 Sat by Pulse Oximetry (%) 97 09/09/19 21:00 Constitutional: Yes: No Distress Cardiovascular: Yes: Regular Rate and Rhythm, S1, S2 Respiratory: Yes: CTA Bilaterally Gastrointestinal: Yes: Normal Bowel Sounds, Soft Extremities: Yes: Other (SUPERFICIAL ULCER 5TH MTH NO DRAINAGE) Labs: CBC, BMP 09/10/19 08:45 09/10/19 08:45 Assessment/Plan FEVER R/O FEVER SECONDARY TO SKIN SOURCE AWAIT C/S PODIATRY EVALUATION CONTINUE EMPIRIC VANCOMYCIN/ ZOSYN
[2019-09-10] MEDS ORDERED: INSULIN (NOVOLOG) ASPART 100 UNITS/ML 10ML VIAL ONE (18:29)
[2019-09-10] MEDS: SENNOSIDES 8.6MG TABLET (FP) PO SCH (21:38)
[2019-09-11] MEDS ORDERED: PIPERACILLIN/TAZOBACTAM 3.375 GM VIAL IVPB ONE ×3 (00:22→17:31)
[2019-09-11] MEDS ORDERED: DEXTROSE 5%-WATER - 50 ML IVPB ONE ×2 (00:22→17:32)
[2019-09-11] MEDS: PIPERACILLIN/TAZOB 3.375 GM 3.375 GM in DEXTROSE 5%-WATER - 50 ML IVPB SCH ×3 (01:18→17:34)
[2019-09-11] MEDS ORDERED: MELATONIN 5 MG TABLETS PO ONE (02:36)
[2019-09-11] MEDS: VANCOMYCIN 1 GRAM (PRE-DOCKED) 1,000 MG/250 ML BAG IVPB SCH ×2 (04:02→14:46)
[2019-09-11] MEDS: INSULIN SLIDING SCALE (NOVOLOG) 1 VIAL SQ SCH ×4 (06:31→21:55)
[2019-09-11] MEDS ORDERED: INSULIN (NOVOLOG MIX 70/30) 100 UNITS/ML MDV SQ ONE (06:42)
[2019-09-11] MEDS ORDERED: INSULIN (LEVEMIR) 100 UNITS/ML UNITS SQ ONE ×2 (06:42→13:18)
[2019-09-11] MEDS ORDERED: PT OWN MED DRAWER 7, Y5N ONE (09:27)
[2019-09-11 09:30] LABS: BASO % 0.5 % (0-2.0); EOS % 1.4 % (0-4.5); HEMOGLOBIN 11.4 GM/dL (11.7-16.9); LYMPH % 13.5 % (8-40); MCH 27.8 pg (25.7-33.7); MCHC 32.6 g/dl (32.0-35.9); MEAN CELL VOLUME 85.2 fl (80-96); MEAN PLT VOLUME 9.8 fl (7.5-11.1); NEUT % 78.6 % (42.8-82.8); PLATELET COUNT 194 K/MM3 (134-434); RBC 4.11 M/mm3 (4.00-5.60); RDW 16.8 % (11.9-15.9); WHITE BLOOD COUNT 9.5 K/mm3 (4.0-10.0)
[2019-09-11] MEDS: DOCUSATE SODIUM 100 MG CAPSULE (FP) PO SCH (09:30)
[2019-09-11] MEDS: POLYETHYLENE GLYCOL 3350 119 GM BTL PO SCH (09:30)
[2019-09-11] MEDS: PANTOPRAZOLE 40 MG TABLET (FP) PO SCH (09:31)
[2019-09-11 09:51] LABS: BLOOD UREA NITROGEN 8.8 mg/dL (7-18); CALCIUM 8.1 mg/dL (8.5-10.1); CREATININE 0.6 mg/dL (0.55-1.3); MAGNESIUM 1.9 mg/dL (1.8-2.4); POTASSIUM 3.6 mmol/L (3.5-5.1)
[2019-09-11] MEDS ORDERED: INSULIN (NOVOLOG) ASPART 100 UNITS/ML 10ML VIAL ONE (11:20)
[2019-09-11] MEDS: LACTATED RINGERS SOLUTION 1,000 ML/1,000 ML INFUS.BAG IV SCH (11:24)
--- NOTE | 2019-09-11 13:07 | PN ---
Progress Note, Physician History of Present Illness: Seen and examined at bedside. Afebrile. no further fevers. last fever over 24 hours ago. Endorses epigastric abdominal pain. Podiatry consult noted and appreciated. Xray foot not consistent with osteomyelitis. MRI also not consistent with osteomyelitis. Denies nausea vomiting fever chills chest pain or SOB. endorses right foot plantar pain at the area of diabetic foot ulcer. leukocytosis improving. Hypophosphatemia improved but still low. Spoke with patient with [facility] allergy [facility] immunology chief [id number] - Current Medication List Current Medications: Active Medications Acetaminophen (Tylenol -) 650 mg PO Q6H PRN PRN Reason: FEVER Last Admin: 09/10/19 01:10 Dose: 650 mg Docusate Sodium (Colace -) 100 mg PO DAILY [facility] Last Admin: 09/11/19 09:30 Dose: 100 mg Piperacillin Sod/Tazobactam (Sod 3.375 gm/ Dextrose) 50 mls @ 100 mls/hr IVPB Q8H-IV [facility]; Protocol Last Admin: 09/11/19 09:31 Dose: 100 mls/hr Lactated Ringer's (Lactated Ringers Solution) 1,000 ml in 1,000 mls @ 100 mls/ hr IV ASDIR [facility] Last Admin: 09/11/19 11:24 Dose: 100 mls/hr Vancomycin HCl (Vancomycin (Pre-Docked)) 1,000 mg in 250 mls @ 166.667 mls/hr IVPB Q12H [facility]; Protocol Last Admin: 09/11/19 04:02 Dose: 166.667 mls/hr Insulin Aspart (Novolog Vial Sliding Scale -) 1 vial SQ ACHS [facility]; Protocol Last Admin: 09/11/19 11:29 Dose: 6 unit Insulin Detemir (Levemir Vial) 15 units SQ DAILY@0700 [facility] Last Admin: 09/11/19 06:31 Dose: 15 units Pantoprazole Sodium (Protonix -) 40 mg PO DAILY [facility] Last Admin: 09/11/19 09:31 Dose: 40 mg Polyethylene Glycol (Miralax (For Daily Use) -) 17 gm PO DAILY [facility] Last Admin: 09/11/19 09:30 Dose: 17 grams Potassium Phos/Sodium Phos (Phos-Nak Packet -) 2 packet PO BID [facility]ER Stop: 09/11/19 22:01 Senna (Senna -) 1 tab PO HS [facility] Last Admin: 09/10/19 21:38 Dose: 1 tab - Objective Vital Signs: Vital Signs Temperature 99 F 09/11/19 08:25 Pulse Rate 79 09/11/19 08:25 Respiratory Rate 20 09/11/19 08:25 Blood Pressure 105/74 09/11/19 08:25 O2 Sat by Pulse Oximetry (%) 97 09/10/19 21:00 Constitutional: Yes: Well Nourished, No Distress Eyes: Yes: EOM Intact HENT: Yes: Atraumatic, Normocephalic Neck: Yes: Supple, Trachea Midline Cardiovascular: Yes: WNL, Regular Rate and Rhythm Respiratory: Yes: WNL, Regular, CTA Bilaterally Gastrointestinal: Yes: Soft, Tenderness (epigastrium). No: Distention Extremities: Yes: Other (RLE plantar diabetic foot ulcer with purulent drainage. ) Edema: No Neurological: Yes: Alert, Oriented Labs: CBC, BMP 09/11/19 08:10 09/11/19 08:10 Impression/Plan Impression/Plan: 54 year old man with PMH of DM non compliant with insulin, chronic pancreatitis , GERD, HLD, and Diabetic neuropathy who presents with diffuse abdominal pain x 1 day found to be in sepsis possibly secondary to RLE plantar diabetic foot ulcer. Sepsis possible due to infected R diabetic plantar ulcer ESR WNL CRP elevated f/u podiatry-recommended MRI which did not show osteomyelitis and neither did Xray f/u ID-continue empiric vanco and zosyn for now f/u sepsis work up-culture from wound growing staph latex coag positive and alpha hemolytic strep but this is preliminary report. F/U final Cx with ID and sensitivities Flu swab negative include abdomen, however CTAP without evidence of abscesses, or acute processes Hypotension could be from sepsis but resolved D/C IVF as he is tolerating PO intake well DM Uncontrolled needs better control in setting of infection A1C 13.2 will increase basal to 22 units continue ISS Patient states he lost insurance and ran out of insulin test strips etc chronic pancreatitis with dilated main pancreatic duct on CTAP f/u GI pain control Hypophosphatemia improved with repletion yesterday but still low will give neutraphos packets PPX DVT: SCDs. Unsure why primary team discontinued chemical PPx but will start lovenox 40 units QD GI: protonix Will need onsite case manager/SW consult prior to discharge to figure out meds for discharge. patient needs insulin Visit type - Emergency Visit Emergency Visit: Yes ED Registration Date: 09/09/19 Care time: The patient presented to the Emergency Department on the above date and was hospitalized for further evaluation of their emergent condition. - New Patient This patient is new to me today: No - Critical Care Critical Care patient: No
[2019-09-11] MEDS: NAPH,MB-DB/K PH,MBDB POWDER PACKET PO SCH ×2 (13:55→21:55)
[2019-09-11] MEDS: ENOXAPARIN NA (PORCINE) 40 MG/0.4 ML DISP.SYRIN SQ SCH (13:56)
[2019-09-11 14:52] VITALS: BMI 23.2
[2019-09-11] MEDS: ACETAMINOPHEN 325 MG TABLET (FP) PO PRN (16:28)
[2019-09-11] MEDS: SENNOSIDES 8.6MG TABLET (FP) PO SCH (21:55)
[2019-09-11] MEDS: MELATONIN 5 MG TABLETS PO SCH (22:26)
[2019-09-12] MEDS ORDERED: PIPERACILLIN/TAZOBACTAM 3.375 GM VIAL IVPB ONE ×2 (00:19→09:56)
[2019-09-12] MEDS ORDERED: DEXTROSE 5%-WATER - 50 ML IVPB ONE ×3 (00:19→12:54)
[2019-09-12] MEDS: PIPERACILLIN/TAZOB 3.375 GM 3.375 GM in DEXTROSE 5%-WATER - 50 ML IVPB SCH ×2 (01:01→10:04)
[2019-09-12] MEDS: VANCOMYCIN 1 GRAM (PRE-DOCKED) 1,000 MG/250 ML BAG IVPB SCH (03:01)
[2019-09-12] MEDS: INSULIN SLIDING SCALE (NOVOLOG) 1 VIAL SQ SCH ×4 (06:13→22:40)
[2019-09-12] MEDS ORDERED: INSULIN (NOVOLOG MIX 70/30) 100 UNITS/ML MDV SQ ONE (06:42)
[2019-09-12] MEDS ORDERED: INSULIN (LEVEMIR) 100 UNITS/ML UNITS SQ ONE (06:42)
[2019-09-12] MEDS ORDERED: INSULIN (LEVEMIR) 100 UNITS/ML UNITS SQ SCH ×2 (07:00→11:20)
[2019-09-12 08:30] LABS: BASO % 0.8 % (0-2.0); EOS % 2.2 % (0-4.5); HEMATOCRIT 34.5 % (35.4-49); HEMOGLOBIN 11.4 GM/dL (11.7-16.9); LYMPH % 22.3 % (8-40); MCH 27.6 pg (25.7-33.7); MCHC 33.1 g/dl (32.0-35.9); MEAN CELL VOLUME 83.3 fl (80-96); MEAN PLT VOLUME 9.3 fl (7.5-11.1); MONO % 6.9 % (3.8-10.2); NEUT % 67.8 % (42.8-82.8); PLATELET COUNT 209 K/MM3 (134-434); RBC 4.15 M/mm3 (4.00-5.60); RDW 16.7 % (11.9-15.9); WHITE BLOOD COUNT 6.1 K/mm3 (4.0-10.0)
[2019-09-12 08:58] LABS: BLOOD UREA NITROGEN 8.6 mg/dL (7-18); CALCIUM 8.7 mg/dL (8.5-10.1); CREATININE 0.6 mg/dL (0.55-1.3); MAGNESIUM 1.8 mg/dL (1.8-2.4); PHOSPHOROUS 3.6 mg/dL (2.5-4.9); POTASSIUM 4.2 mmol/L (3.5-5.1)
[2019-09-12] MEDS: DOCUSATE SODIUM 100 MG CAPSULE (FP) PO SCH (10:01)
[2019-09-12] MEDS: ACETAMINOPHEN 325 MG TABLET (FP) PO PRN (10:01)
[2019-09-12] MEDS: PANTOPRAZOLE 40 MG TABLET (FP) PO SCH (10:03)
[2019-09-12] MEDS: ENOXAPARIN NA (PORCINE) 40 MG/0.4 ML DISP.SYRIN SQ SCH (10:03)
[2019-09-12] MEDS: POLYETHYLENE GLYCOL 3350 119 GM BTL PO SCH (10:07)
[2019-09-12] MEDS ORDERED: INSULIN (NOVOLOG) ASPART 100 UNITS/ML 10ML VIAL ONE (11:27)
--- NOTE | 2019-09-12 12:07 | PN ---
Progress Note (short form) - Note Progress Note: still some midepigastric pain MRI no osteo Vital Signs Period Temp Pulse Resp BP Sys/Javed Pulse Ox Last 24 Hr 97.6 F-998.4 F 60-92 18-20 98-111/64-74 97 cor-rrr lungs clear abd soft, midepigastric discomfort to palpation ext mild erythema surrounding plantar ulcer CBC, BMP 09/12/19 07:50 09/12/19 07:50 Microbiology 09/09/19 17:30 Wound Gram Stain - Final 09/09/19 17:30 Wound Wound Culture - Preliminary Presumptive Mssa (Pbp2a Neg) Alpha Hemolytic Streptococcus Pending Organism 09/09/19 17:35 Urine - Urine Clean Catch Urine Culture - Final Strep Agalactiae Group B 09/09/19 16:40 Blood - Peripheral Venous Blood Culture - Preliminary NO GROWTH OBTAINED AFTER 48 HOURS, INCUBATION TO CONTINUE FOR 3 DAYS. 09/09/19 16:30 Blood - Peripheral Venous Blood Culture - Preliminary NO GROWTH OBTAINED AFTER 48 HOURS, INCUBATION TO CONTINUE FOR 3 DAYS. Laboratory Tests 09/09/19 09/12/19 15:00 07:50 ESR 19 Hemoglobin A1c % 13.3 H a/p sepsis diabetic foot ulcer abdominal pain-history of pancreatitis-persists poorly controlled diabetes switch to rocephin, f/u culture results crp in am
[2019-09-12] MEDS ORDERED: cefTRIAXone SODIUM 1 GM VIAL ONE (12:54)
[2019-09-12] MEDS: CEFTRIAXONE 1 GM in DEXTROSE 5%-WATER - 50 ML IVPB SCH (12:57)
--- NOTE | 2019-09-12 13:11 | PN ---
Progress Note (short form) - Note Progress Note: Hospitalist Medicine c/o abdominal pain radiating to the back, which he has had chronically. Otherwise without complaint. Sitting up and eating breakfast. Vitals 09/12/19 09/12/19 06:12 09:00 Temperature 97.6 F Pulse Rate 78 Respiratory 18 Rate Blood Pressure 111/74 Physical Exam general: resting in bed, in no acute distress. sitting up HEAD: NCAT, PERRLA neck: supple cardio: S1, S2 RRR. no r/m/g pulm: CTA b/l. no accessory m usage abdomen: +diffusely tender in RLQ, LLQ LE: 2+ pulses, no edema, +R plantar wound 2x2cm, without drainage. Laboratory Tests 09/12/19 09/12/19 09/12/19 07:50 07:50 07:50 WBC 6.1 Hgb 11.4 L Hct 34.5 L Plt Count 209 Sodium 137 Potassium 4.2 Chloride 104 Carbon Dioxide 29 Anion Gap 4 L BUN 8.6 Creatinine 0.6 POC Glucometer Random Glucose 187 H Hemoglobin A1c % 13.3 H 09/12/19 11:10 WBC Hgb Hct Plt Count Sodium Potassium Chloride Carbon Dioxide Anion Gap BUN Creatinine POC Glucometer 398 Random Glucose Hemoglobin A1c % Microbiology 09/09/19 17:35 Urine - Urine Clean Catch Urine Culture - Final Strep Agalactiae Group B 09/09/19 17:30 Wound Gram Stain - Final 09/09/19 17:30 Wound Wound Culture - Preliminary Presumptive Mssa (Pbp2a Neg) Alpha Hemolytic Streptococcus Pending Organism 09/09/19 16:40 Blood - Peripheral Venous Blood Culture - Preliminary NO GROWTH OBTAINED AFTER 48 HOURS, INCUBATION TO CONTINUE FOR 3 DAYS. 09/09/19 16:30 Blood - Peripheral Venous Blood Culture - Preliminary NO GROWTH OBTAINED AFTER 48 HOURS, INCUBATION TO CONTINUE FOR 3 DAYS. Imaging R foot XR: degenerative changes with bunion formation by first MTP joint, healed fx of deformities of the second, third, fourth, and fifth metatarsals. There is a sock artifact. There is no sign of foreign body or soft tissue air. Swelling is not appreciated. RLE MRI w/o contrast: no evidence of fracture or osteomyelitis, soft tissue swelling dorsal aspect of foot but predominantly on the plantar aspect compatible with edema or early cellulitis. The flexor and extendor tendons are unremarkable. There is some edema in the interosseus musculature surrounding the 2nd, third, fourth metatarsal bones compatible with acute inflammatory changes. No subcutaneous or deep abscess arterial duplex: (-) for acute changes 09/09/19: CXR: no acute chest pathology 09/09/19: CTAP: atrophic pancreas, multiple calcifications and calculi within a markedly dilated main pancreatic duct. chronic calcific pancreatitis. no CT evidence of acute pancreatitis. fecal retention EKG: NSR, vent rate 81bpm, qtc 455ms Assessment/Plan 54 year old man with PMH of Insulin-treated DM, Pancreatitis, GERD, HLD, Appendectomy, Cholecystectomy, Chronic back pain, Left hip fracture (never repaired) and Diabetic neuropathy who presents with diffuse abdominal pain x 1 day. #Sepsis 2/2 unknown etiology -may be 2/2 infected R diabetic plantar ulcer. other sources of infection -MSSA on wound cx -uncontrolled DM -XR, MRI do not suggest osteo -c/t f/u cx -changed to rocephin (Day 1) from vanc, zosyn -c/w maintenance IVF LR -Tylenol PRN for fever/pain -c/w protonix qd -ID consulted: Dr. Hollis #LE pain -art duplex (-) #IDDM -started on levemir 10u SQ qd -ISS, BGM ACHS -will adjust levemir accordingly based on BGM, sliding scale use -a1c~13 #chronic pancreatitis #dilated main pancreatic duct -case discussed by team w/ Dr. Pabon -no acute intervention planned -c/t monitor -GI: Dr. Pabon #fecal retention -started on miralax, senna, colace #L hip fx -never repaired #PPX DVT: SCD's GI: protonix #Dispo admitted to med-surg <Elissa Wakefield - Last Filed: 09/12/19 18:39> - Note Progress Note: Seen and examined; please see resident note for further information. Agree with above as documented aside from as supplemented by myself. Personally verified all mcgregor historical details, PE findings, as well as all labs, imaging, and diagnostics. Discussed at length with resident and indicated consultants. Complains of vague abdominal pain with no real relation to eating with no tariq objective findings on examination. I discussed this with Dr. Pabon last week. He may be evaluated if possible by GI service prior to DC if possible but this is not 100% indicated. We will discuss with GI specialists at [facility] prior to discharge (Dr. Damon) to see if there is further interventions we can undertake for this patient. He is nontoxic with a good appetite and denies blood in his stool. Pending arterial duplex to r/o PAD given the DM foot ulcer. No osteomyelitis. D/w podiatry and ID regarding final abx course. Appreciate subspecialty management in the care of this patient. 10 sys ROS done and negative aside from HPI NAD, AAO, resting in bed NC AT EOMI PERRLA HR wnl, s1/2+ Lungs CTAB, w/ sym exp NT ND +BS CN2-12 wnl, no fnd Normal mood, appropriate behavior, average insight Trachea midline, no JVD Full Code: Patient presented with sepsis 2/2 DM foot wound found to be cellulitis without OM or drainable abscess. He has chronic dilation of the pancreatic duct with nonspecific abdominal sx and no objective findings. He may followup with Dr. Damon for this as an outpatient and we can coordinate his ongoing care with Dr. Pabon nonurgently if he is here for another day. Continue to adjust insulin for uncontrolled DM and will discuss definitive tx of the untreated L-hip fx. Fecal retention improved. Changed to IV ceftriaone and continue to monitor cultures. Will need HBO as OP. Coordinate with CM. Consider home PT given the underlying deconditioning. Agree with resident problem list. Full Code <Aditya Sosa - Last Filed: 09/13/19 01:39>
--- NOTE | 2019-09-12 13:52 | PN ---
Progress Note, Physician Chief Complaint: chronic draining wound right. - Current Medication List Current Medications: Active Medications Acetaminophen (Tylenol -) 650 mg PO Q6H PRN PRN Reason: FEVER Last Admin: 09/12/19 10:01 Dose: 650 mg Docusate Sodium (Colace -) 100 mg PO DAILY REPLACED BY [facility] Last Admin: 09/12/19 10:01 Dose: 100 mg Enoxaparin Sodium (Lovenox -) 40 mg SQ DAILY REPLACED BY [facility] Last Admin: 09/12/19 10:03 Dose: 40 mg Ceftriaxone Sodium 1 gm/ (Dextrose) 50 mls @ 100 mls/hr IVPB DAILY REPLACED BY [facility]; Protocol Last Admin: 09/12/19 12:57 Dose: 100 mls/hr Insulin Aspart (Novolog Vial Sliding Scale -) 1 vial SQ ACHS REPLACED BY [facility]; Protocol Last Admin: 09/12/19 11:30 Dose: 10 unit Insulin Detemir (Levemir Vial) 24 units SQ DAILY@0700 REPLACED BY [facility] Melatonin (Melatonin) 10 mg PO HS REPLACED BY [facility] Last Admin: 09/11/19 22:26 Dose: 10 mg Pantoprazole Sodium (Protonix -) 40 mg PO DAILY REPLACED BY [facility] Last Admin: 09/12/19 10:03 Dose: 40 mg Polyethylene Glycol (Miralax (For Daily Use) -) 17 gm PO DAILY REPLACED BY [facility] Last Admin: 09/12/19 10:07 Dose: 17 grams Senna (Senna -) 1 tab PO HS REPLACED BY [facility] Last Admin: 09/11/19 21:55 Dose: 1 tab - Objective Vital Signs: Vital Signs Temperature 97.6 F 09/12/19 06:12 Pulse Rate 78 09/12/19 09:00 Respiratory Rate 18 09/12/19 09:00 Blood Pressure 111/74 09/12/19 09:00 O2 Sat by Pulse Oximetry (%) 97 09/11/19 21:00 Extremities: Yes: Other (+draining ulceration right foot plantar aspect, -mri for om or abscess, +tape noted on skin) Labs: CBC, BMP 09/12/19 07:50 09/12/19 07:50 Assessment/Plan wound right foot betadine dressing to wound. ivabx as per id. will follow. tx outpatient with wound care and hbo. No tape on skin.
[2019-09-12] MEDS: SENNOSIDES 8.6MG TABLET (FP) PO SCH (22:41)
[2019-09-12] MEDS: MELATONIN 5 MG TABLETS PO SCH (22:41)
[2019-09-13] MEDS: INSULIN SLIDING SCALE (NOVOLOG) 1 VIAL SQ SCH ×3 (06:08→16:46)
[2019-09-13 09:05] LABS: EOS % 2.1 % (0-4.5); HEMOGLOBIN 12.1 GM/dL (11.7-16.9); LYMPH % 34.1 % (8-40); MCH 27.6 pg (25.7-33.7); MCHC 32.9 g/dl (32.0-35.9); MEAN PLT VOLUME 9.3 fl (7.5-11.1); NEUT % 54.8 % (42.8-82.8); PLATELET COUNT 258 K/MM3 (134-434); RDW 16.9 % (11.9-15.9); WHITE BLOOD COUNT 5.2 K/mm3 (4.0-10.0)
[2019-09-13 09:29] LABS: BLOOD UREA NITROGEN 9.4 mg/dL (7-18); CALCIUM 9.2 mg/dL (8.5-10.1); CREATININE 0.6 mg/dL (0.55-1.3); POTASSIUM 4.2 mmol/L (3.5-5.1)
[2019-09-13] MEDS ORDERED: DEXTROSE 5%-WATER - 50 ML IVPB ONE (10:12)
[2019-09-13] MEDS ORDERED: cefTRIAXone SODIUM 1 GM VIAL ONE (10:12)
[2019-09-13] MEDS: POLYETHYLENE GLYCOL 3350 119 GM BTL PO SCH (10:14)
[2019-09-13] MEDS: ACETAMINOPHEN 325 MG TABLET (FP) PO PRN (10:14)
[2019-09-13] MEDS: DOCUSATE SODIUM 100 MG CAPSULE (FP) PO SCH (10:16)
[2019-09-13] MEDS: ENOXAPARIN NA (PORCINE) 40 MG/0.4 ML DISP.SYRIN SQ SCH (10:16)
[2019-09-13] MEDS: PANTOPRAZOLE 40 MG TABLET (FP) PO SCH (10:16)
[2019-09-13] MEDS: CEFTRIAXONE 1 GM in DEXTROSE 5%-WATER - 50 ML IVPB SCH (10:17)
--- NOTE | 2019-09-13 10:30 | PN ---
Progress Note (short form) - Note Progress Note: Seen and examined; please see resident note for further information. Agree with above as documented aside from as supplemented by myself. Personally verified all mcgregor historical details, PE findings, as well as all labs, imaging, and diagnostics. Discussed at length with resident and indicated consultants. Complains of vague abdominal pain with no real relation to eating with no tariq objective findings on examination. I discussed this with Dr. Pabon last week. He may be evaluated if possible by GI service prior to DC if possible but this is not 100% indicated. We will discuss with GI specialists at [facility] prior to discharge (Dr. Damon) to see if there is further interventions we can undertake for this patient. He is nontoxic with a good appetite and denies blood in his stool. Pending arterial duplex to r/o PAD given the DM foot ulcer. No osteomyelitis. D/w podiatry and ID regarding final abx course. Appreciate subspecialty management in the care of this patient. Today there are no new complaints, the patient is afebrile hemodynamically stable. Glucose is still elevated this morning, increasing the basal insulin from 24-26. Placed him on 2 units of [id number] lispro with meals. If the patient is successfully transitioned to p.o. antibiotics per infectious disease consult and we are able to determine appropriate gastroenterology follow -up for his chronic pancreatic ductal dilatation the patient will be able to be discharged home. 10 sys ROS done and negative aside from HPI NAD, AAO, resting in bed NC AT EOMI PERRLA HR wnl, s1/2+ Lungs CTAB, w/ sym exp NT ND +BS CN2-12 wnl, no fnd Normal mood, appropriate behavior, average insight Trachea midline, no JVD Full Code: Patient presented with sepsis 2/2 DM foot wound found to be cellulitis without OM or drainable abscess. He has chronic dilation of the pancreatic duct with nonspecific abdominal sx and no objective findings. He may followup with Dr. Damon for this as an outpatient and we can coordinate his ongoing care with Dr. Pabon nonurgently if he is here for another day. Continue to adjust insulin for uncontrolled DM and will discuss definitive tx of the untreated L-hip fx. Fecal retention improved. Changed to IV ceftriaxone (as of 09/12) and continue to monitor cultures. Will need HBO as OP. Coordinate with CM. Consider home PT given the underlying deconditioning. Problem list: -Sepsis, resolved -DM foot wound -Uncontrolled DM with hyperglycemia -Untreated L-hip fracture -Chronic pancreatic ductal dilation -Chronic abdominal pain, unchanged Agree with resident problem list. Full Code <Aditya Sosa - Last Filed: 09/13/19 11:50> - Note Progress Note: Hospitalist Medicine still c/o abdominal pain radiating to the back, which he has had chronically. Otherwise, feels well. BP improved. Vitals 09/13/19 09:00 Temperature 98.4 F Pulse Rate 79 Respiratory 18 Rate Blood Pressure 124/68 Physical Exam general: resting in bed, in no acute distress. sitting up HEAD: NCAT, PERRLA neck: supple cardio: S1, S2 RRR. no r/m/g pulm: CTA b/l. no accessory m usage abdomen: +diffusely tender in RLQ, LLQ LE: 2+ pulses, no edema, +R plantar wound 2x2cm, without drainage. w/mild erythema Laboratory Tests 09/13/19 09/13/19 08:00 08:00 WBC 5.2 Hgb 12.1 Hct 37.0 Plt Count 258 D Sodium 139 Potassium 4.2 Chloride 105 BUN 9.4 Creatinine 0.6 Random Glucose 143 H C-Reactive Protein 3.0 H Microbiology 09/09/19 17:35 Urine - Urine Clean Catch Urine Culture - Final Strep Agalactiae Group B 09/09/19 17:30 Wound Gram Stain - Final 09/09/19 17:30 Wound Wound Culture - Preliminary Staphylococcus Aureus Alpha Hemolytic Streptococcus Gram Positive Cocci 09/09/19 16:40 Blood - Peripheral Venous Blood Culture - Preliminary NO GROWTH OBTAINED AFTER 72 HOURS, INCUBATION TO CONTINUE FOR 2 DAYS. 09/09/19 16:30 Blood - Peripheral Venous Blood Culture - Preliminary NO GROWTH OBTAINED AFTER 72 HOURS, INCUBATION TO CONTINUE FOR 2 DAYS. Imaging R foot XR: degenerative changes with bunion formation by first MTP joint, healed fx of deformities of the second, third, fourth, and fifth metatarsals. There is a sock artifact. There is no sign of foreign body or soft tissue air. Swelling is not appreciated. RLE MRI w/o contrast: no evidence of fracture or osteomyelitis, soft tissue swelling dorsal aspect of foot but predominantly on the plantar aspect compatible with edema or early cellulitis. The flexor and extendor tendons are unremarkable. There is some edema in the interosseus musculature surrounding the 2nd, third, fourth metatarsal bones compatible with acute inflammatory changes. No subcutaneous or deep abscess arterial duplex: (-) for acute changes 09/09/19: CXR: no acute chest pathology 09/09/19: CTAP: atrophic pancreas, multiple calcifications and calculi within a markedly dilated main pancreatic duct. chronic calcific pancreatitis. no CT evidence of acute pancreatitis. fecal retention EKG: NSR, vent rate 81bpm, qtc 455ms Assessment/Plan 54 year old man with PMH of Insulin-treated DM, Pancreatitis, GERD, HLD, Appendectomy, Cholecystectomy, Chronic back pain, Left hip fracture (never repaired) and Diabetic neuropathy who presents with diffuse abdominal pain x 1 day. #Sepsis 2/2 unknown etiology -may be 2/2 infected R diabetic plantar ulcer. -MSSA, a-hemolytic strep, gram+ cocci on wound cx - mostly matos-sensitive -uncontrolled DM -XR, MRI do not suggest osteo -blood cx (-), ucx: strep agalact. likely contaminant 10-20k -changed to rocephin (Day 2) from vanc, zosyn -c/w maintenance IVF LR -Tylenol PRN for fever/pain -c/w protonix qd -ID consulted: Dr. Hollis #LE pain -art duplex (-) #IDDM -started on levemir 24u SQ qd -ISS, BGM ACHS -will adjust levemir accordingly based on BGM, sliding scale use bgm gradually improving -a1c~13 #chronic pancreatitis #dilated main pancreatic duct -case discussed by team w/ Dr. Pabon -no acute intervention planned -c/t monitor -GI: Dr. Pabon #fecal retention -started on miralax, senna, colace #L hip fx -never repaired #F/E/N not requiring IVF continue to follow lytes diabetic diet #PPX DVT: SCD's GI: protonix #Dispo cont'd monitoring on med-surg anticipate d/c once on PO abx will need hyperbaric tx, will need f/u with wound care <Elissa Wakefield - Last Filed: 09/13/19 15:37>
[2019-09-13] MEDS ORDERED: INSULIN (NOVOLOG) ASPART 100 UNITS/ML 10ML VIAL ONE ×2 (11:26→19:24)
[2019-09-13] MEDS ORDERED: INSULIN (LEVEMIR) 100 UNITS/ML UNITS SQ SCH (11:38)
--- NOTE | 2019-09-13 12:05 | CONSULT ---
- Consultation REQUESTING PROVIDER: CONSULT REQUEST: We have been asked to surgically evaluate this patient for r foot ulcer PCP:Aditya Sosa MD HISTORY OF PRESENT ILLNESS: 54 y/o M w/ PMHx IDDM (off insulin for 4 months d/t lack of insurance) and chronic pancreatitis admitted with abdo pain. Vascular consulted for R foot ulcer. Pt reports he has had right foot ulcer x 3 months. Has not seen a doctor as he has no medical coverage. Has been caring for the wound at home (washing with soap and water and applying OTC antibiotic ointment). Denies fever/chills or prior foot wounds. At baseline, pt lives home with . Ambulates with some restriction due to L hip fracture (not repaired-pt reports glucose was too high), denies claudication sxs. Has not been seen by Vascular in the past. Was a prior heavy smoker, quit 10 years ago. Denies known vascular disease or evaluation in the past. Recent Travel: denies PAST MEDICAL HISTORY: insulin treated DM (off insulin for 4 months d/t lack of insurance) and chronic pancreatitis, LEFT hip fracture never treated PAST SURGICAL HISTORY: cholecystectomy. Colonic polyps removed 2 years ago. Home Medications Medication Instructions Recorded Docusate Sodium [Colace -] 100 mg PO DAILY #30 capsule 09/09/19 Insulin (Levemir) [Levemir Vial] 10 units SQ DAILY 30 Days #1 units 09/09/19 Pantoprazole Sodium [Protonix] 40 mg PO DAILY #30 tablet. 09/09/19 metFORMIN HCL [Glucophage -] 500 mg PO DAILY@0700 #30 tablet 09/09/19 Allergies Allergy/AdvReac Type Severity Reaction Status Date / Time No Known Allergies Allergy Verified 09/08/19 23:36 REVIEW OF SYSTEMS: CONSTITUTIONAL: Absent: fever, chills CARDIOVASCULAR: Absent: chest pain, syncope RESPIRATORY: Absent: cough, shortness of breath GASTROINTESTINAL: Absent: abdominal pain PHYSICAL EXAM: GENERAL: Awake, alert, and fully oriented, in no acute distress. HEAD: Normal with no signs of trauma. LOWER EXTREMITIES: R foot with approx .5x.5cm circular wound over 4th met head, tacks approx 1cm in. +fibrinous exudate, scant serous drainage, no erythema, no ttp. Vasc: 2+ dp/pt pulses b/l, warm, well-perfused. No calf tenderness. No peripheral edema. Vital Signs Temperature 98.4 F 09/13/19 09:00 Pulse Rate 79 09/13/19 09:00 Respiratory Rate 18 09/13/19 09:00 Blood Pressure 124/68 09/13/19 09:00 O2 Sat by Pulse Oximetry (%) 98 09/12/19 09:00 Lab Results WBC 5.2 K/mm3 (4.0-10.0) 09/13/19 08:00 RBC 4.40 M/mm3 (4.00-5.60) 09/13/19 08:00 Hgb 12.1 GM/dL (11.7-16.9) 09/13/19 08:00 Hct 37.0 % (35.4-49) 09/13/19 08:00 MCV 84.0 fl (80-96) 09/13/19 08:00 MCHC 32.9 g/dl (32.0-35.9) 09/13/19 08:00 RDW 16.9 % (11.9-15.9) H 09/13/19 08:00 Plt Count 258 K/MM3 (134-434) D 09/13/19 08:00 Sodium 139 mmol/L (136-145) 09/13/19 08:00 Potassium 4.2 mmol/L (3.5-5.1) 09/13/19 08:00 Chloride 105 mmol/L (98-107) 09/13/19 08:00 Carbon Dioxide 27 mmol/L (21-32) 09/13/19 08:00 Anion Gap 6 MMOL/L (8-16) L 09/13/19 08:00 BUN 9.4 mg/dL (7-18) 09/13/19 08:00 Creatinine 0.6 mg/dL (0.55-1.3) 09/13/19 08:00 Random Glucose 143 mg/dL (74-106) H 09/13/19 08:00 Calcium 9.2 mg/dL (8.5-10.1) 09/13/19 08:00 MRI (09/09/19): no osteomyelitis RLE Duplex (Arterial) 09/12/19: No significant vascular disease. A/P: 54 y/o M w/ PMHx IDDM (off insulin for 4 months d/t lack of insurance) and chronic pancreatitis admitted with abdo pain. Vascular consulted for R foot ulcer. R foot with small ulcer appears to be at the site of prior callus. No clinical signs of infection. No osteo on imaging. Pulses intact, duplex wnl. -No acute vascular intervention necessary -Wound care per podiatry -Glucose control d/w attending Dr Tolentino
--- NOTE | 2019-09-13 15:38 | DS ---
Physical Exam: SUBJECTIVE: Patient seen and examined at bedside. Ready to go home. no complaint. OBJECTIVE: Vital Signs Period Temp Pulse Resp BP Sys/Javed Pulse Ox Last 24 Hr 97.4 F-98.4 F 63-97 18-20 102-124/65-72 Physical Exam general: resting in bed, in no acute distress. sitting up HEAD: NCAT, PERRLA neck: supple cardio: S1, S2 RRR. no r/m/g pulm: CTA b/l. no accessory m usage abdomen: +diffusely tender in RLQ, LLQ LE: 2+ pulses, no edema, +R plantar wound 2x2cm, without drainage. w/mild erythema SKIN: Warm, dry, normal turgor, no rashes or lesions noted. LABS Laboratory Results - last 24 hr 09/12/19 09/12/19 09/12/19 16:38 21:00 22:39 WBC RBC Hgb Hct MCV MCH MCHC RDW Plt Count MPV Absolute Neuts (auto) Neutrophils % Lymphocytes % Monocytes % Eosinophils % Basophils % Nucleated RBC % ESR 23 H Sodium Potassium Chloride Carbon Dioxide Anion Gap BUN Creatinine Est GFR (CKD-EPI)AfAm Est GFR (CKD-EPI)NonAf POC Glucometer 190 245 Random Glucose Calcium C-Reactive Protein 09/13/19 09/13/19 09/13/19 06:04 08:00 08:00 WBC 5.2 RBC 4.40 Hgb 12.1 Hct 37.0 MCV 84.0 MCH 27.6 MCHC 32.9 RDW 16.9 H Plt Count 258 D MPV 9.3 Absolute Neuts (auto) 2.8 Neutrophils % 54.8 Lymphocytes % 34.1 D Monocytes % 8.0 Eosinophils % 2.1 Basophils % 1.0 Nucleated RBC % 0 ESR Sodium 139 Potassium 4.2 Chloride 105 Carbon Dioxide 27 Anion Gap 6 L BUN 9.4 Creatinine 0.6 Est GFR (CKD-EPI)AfAm 133.98 Est GFR (CKD-EPI)NonAf 115.60 POC Glucometer 232 Random Glucose 143 H Calcium 9.2 C-Reactive Protein 3.0 H 09/13/19 11:22 WBC RBC Hgb Hct MCV MCH MCHC RDW Plt Count MPV Absolute Neuts (auto) Neutrophils % Lymphocytes % Monocytes % Eosinophils % Basophils % Nucleated RBC % ESR Sodium Potassium Chloride Carbon Dioxide Anion Gap BUN Creatinine Est GFR (CKD-EPI)AfAm Est GFR (CKD-EPI)NonAf POC Glucometer 253 Random Glucose Calcium C-Reactive Protein Microbiology 09/09/19 17:35 Urine - Urine Clean Catch Urine Culture - Final Strep Agalactiae Group B 09/09/19 17:30 Wound Gram Stain - Final 09/09/19 17:30 Wound Wound Culture - Preliminary Staphylococcus Aureus Alpha Hemolytic Streptococcus Strep Agalactiae Group B 09/09/19 16:40 Blood - Peripheral Venous Blood Culture - Preliminary NO GROWTH OBTAINED AFTER 96 HOURS, INCUBATION TO CONTINUE FOR 1 DAYS. 09/09/19 16:30 Blood - Peripheral Venous Blood Culture - Preliminary NO GROWTH OBTAINED AFTER 96 HOURS, INCUBATION TO CONTINUE FOR 1 DAYS. Imaging R foot XR: degenerative changes with bunion formation by first MTP joint, healed fx of deformities of the second, third, fourth, and fifth metatarsals. There is a sock artifact. There is no sign of foreign body or soft tissue air. Swelling is not appreciated. RLE MRI w/o contrast: no evidence of fracture or osteomyelitis, soft tissue swelling dorsal aspect of foot but predominantly on the plantar aspect compatible with edema or early cellulitis. The flexor and extendor tendons are unremarkable. There is some edema in the interosseus musculature surrounding the 2nd, third, fourth metatarsal bones compatible with acute inflammatory changes. No subcutaneous or deep abscess arterial duplex: (-) for acute changes 09/09/19: CXR: no acute chest pathology 09/09/19: CTAP: atrophic pancreas, multiple calcifications and calculi within a markedly dilated main pancreatic duct. chronic calcific pancreatitis. no CT evidence of acute pancreatitis. fecal retention EKG: NSR, vent rate 81bpm, qtc 455ms HOSPITAL COURSE: Date of Admission:09/09/19 Date of Discharge: 09/13/19 54 year old man with PMH of Insulin-treated DM, Pancreatitis, GERD, HLD, Appendectomy, Cholecystectomy, Chronic back pain, Left hip fracture (never repaired) and Diabetic neuropathy who presented with diffuse abdominal pain x 1 day. Was managed for the following during the stay: #Sepsis 2/2 unknown etiology -may be 2/2 infected R diabetic plantar ulcer. -MSSA, a-hemolytic strep, gram+ cocci on wound cx - mostly matos-sensitive -uncontrolled DM -XR, MRI do not suggest osteo -blood cx (-), ucx: strep agalact. likely contaminant 10-20k -changed to rocephin (Day 2) from [facility]. to be sent home on augmentin 875mg BID x 7 additional days #LE pain -art duplex (-) #IDDM -started on levemir 24u SQ qd -ISS, BGM ACHS -will adjust levemir accordingly based on BGM, sliding scale use bgm gradually improving -pt d/c on home medications, including metformin, levemir, lantus -a1c~13 #chronic pancreatitis #dilated main pancreatic duct -case discussed by team w/ Dr. Pabon -no acute intervention planned -c/t monitor -referred to Dr. David Damon ([facility]) -GI: Dr. Pabon #fecal retention -started on miralax, senna, colace #L hip fx -never repaired Concerning f/u pt will also need f/u with hyperbaric [address] Guerra d/w patient, SW, team Minutes to complete discharge: 55 Discharge Summary Problems reviewed: Yes Reason For Visit: CHRONIC PANCREATITIS,LEUKOCYTOPENIA,UNCONTROLLED Current Active Problems Abdominal pain (Acute) Diabetic foot ulcer (Acute) Leukocytosis (Acute) Chronic pancreatitis (Chronic) Condition: Stable - Instructions Diet, Activity, Other Instructions: You were seen for abdominal pain and found to have fecal retention. Your diabetes was not controlled well. You were also found to have an infection of your foot. You improved and are being sent home. Medications You are being started on a new antibiotic called Augmentin. Please take 2 pills of 875mg every day, for the next 7 days starting tomorrow (09/14/2019). This is for your foot infection. Please also continue to take the stool softener: colace daily. This will help you with constipation. Please take 1 pill daily. You may continue your home medications. Follow up You will need to follow up with: -Dr. David Damon - a GI doctor at [facility] for your pancreas - 1 week -A primary care doctor, Dr. Arreguin (we are giving you a referral)- 3-5 days to discuss your visit -Dr. Cortes, a lung doctor - in 1 week -Dr. Guerra, a supervisor mechanic boilermaking/foot doctor for hyperbaric treatments for your leg - 1 week. This will help your leg wound heal. Referrals: Yohana Damon MD [Other] - 1 Week Reynold Arreguin MD [Staff Physician] - 1 Week (For new PCP in 3-5 days) Finesse Cortes MD [Staff Physician] - 1 Week (For PFTs and POPEYE eval) Kiki Guerra DPM [Staff Physician] - 1 Month (For DM foot exam ) Disposition: HOME - Home Medications Comprehensive Discharge Medication List: Ambulatory Orders Docusate Sodium [Colace -] 100 mg PO DAILY #30 capsule 09/09/19 Insulin (Levemir) [Levemir Vial] 10 units SQ DAILY 30 Days #1 units 09/09/19 Pantoprazole Sodium [Protonix] 40 mg PO DAILY #30 tablet.dr 09/09/19 metFORMIN HCL [Glucophage -] 500 mg PO DAILY@0700 #30 tablet 09/09/19 Amoxicillin/Potassium Clav [Augmentin 875-125 Tablet] 1 each PO BID #14 tablet 09/13/19 Lancets/Blood Glucose Strips [Fora [id number] Strp-Lnct] 1 each MC DAILY # 1 combo..pkg 09/13/19 Miscellaneous Medical Supply [Glucometer Test Strips #100] 1 each TD ASDIR #1 box 09/13/19 This patient is new to me today: No Emergency Visit: No Critical Care patient: No - Discharge Referral Referred to [facility] No
--- NOTE | 2019-09-13 17:30 | CON.GI ---
Consult Consult Specialty:: Gastroenterology ( covering the [facility] [place] [facility] service) Referred by:: Elissa Wakefield MD Reason for Consultation:: abdominal pain - History of Present Illness Chief Complaint: right foot infection History of Present Illness: 54M is admitted with right foot plantar surface infection. MRI did not reveal osteomyelitis. 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 He quit alcohol in 2016. He cannot afford pancreatic enzymes as his only had Medicare coverage for hospitalization. His pain has not changed and has not kept him from eating. He last had a colonoscopy with me on 12/15/16 when a descending colon adenoma was removed. Mild diverticulosis was found in the distal half of the colon. EGD on 12/01/16 revealed erosive gastritis but no varices. He has an EGD and colonoscopy with Dr Dianne Sosa in 12/31 when a large hiatal hernia and gastritis were found and when a hyperplastic sigmoid polyp was removed. He had several ERCPs in 2004 to remove calcified pancreatic duct stones. - History Source History Provided By: Patient Limitations to Obtaining History: Language Barrier - Past Medical History Cardio/Vascular: Yes: HTN, Hyperlipdemia Gastrointestinal: Yes: Diverticulosis, Gastritis, GERD, Hiatal Hernia (resolved on 2016 EGD), Pancreatitis (chronic calcific alcoholic panceatitis), Other ( left colon adenoma removed 12/05) Infectious Disease: Yes: Other (right foot plantar infection) Endocrine: Yes: Diabetes Mellitus (with diabetic neuropathy, right Charcot's foot ?) - Past Surgical History Past Surgical History: Yes: Cholecystectomy - Alcohol/Substance Use Hx Alcohol Use: Yes (recovering alcoholic since 2016) History of Substance Use: reports: None - Smoking History Smoking history: Former smoker Have you smoked in the past 12 months: No If you are a former smoker, when did you quit?: 2010 - Social History Usual Living Arrangement: With Spouse ADL: Independent 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 (year[place] age 36 History of Recent Travel: No Home Medications - Allergies Allergies/Adverse Reactions: Allergies Allergy/AdvReac Type Severity Reaction Status Date / Time No Known Allergies Allergy Verified 09/08/19 23:36 - Home Medications Home Medications: Ambulatory Orders Docusate Sodium [Colace -] 100 mg PO DAILY #30 capsule 09/09/19 Insulin (Levemir) [Levemir Vial] 10 units SQ DAILY 30 Days #1 units 09/09/19 Pantoprazole Sodium [Protonix] 40 mg PO DAILY #30 tablet. 09/09/19 metFORMIN HCL [Glucophage -] 500 mg PO DAILY@0700 #30 tablet 09/09/19 Amoxicillin/Potassium Clav [Augmentin 875-125 Tablet] 1 each PO BID #14 tablet 09/13/19 Lancets/Blood Glucose Strips [Fora [id number] Strp-Lnct] 1 each MC DAILY # 1 combo..pkg 09/13/19 Miscellaneous Medical Supply [Glucometer Test Strips #100] 1 each TD ASDIR #1 box 09/13/19 Family Medical History Family Hx Congestive Heart Failure: Father ( 72) Family Hx Diabetes: Brother Review of Systems - Review of Systems Constitutional: reports: Weakness Eyes: reports: No Symptoms HENT: reports: No Symptoms Neck: reports: No Symptoms Cardiovascular: reports: No Symptoms Respiratory: reports: No Symptoms Gastrointestinal: reports: Abdominal Pain Genitourinary: reports: No Symptoms Musculoskeletal: reports: Joint Pain, Muscle Pain, Muscle Weakness Neurological: reports: Other (diabetic neuropathy, right Charcot foot) Physical Exam-GI Vital Signs: Vital Signs Temperature 98.1 F 09/13/19 15:00 Pulse Rate 71 09/13/19 15:00 Respiratory Rate 18 09/13/19 15:00 Blood Pressure 95/57 L 09/13/19 15:00 O2 Sat by Pulse Oximetry (%) 98 09/12/19 09:00 CBC,CMP WBC 5.2 K/mm3 (4.0-10.0) 09/13/19 08:00 RBC 4.40 M/mm3 (4.00-5.60) 09/13/19 08:00 Hgb 12.1 GM/dL (11.7-16.9) 09/13/19 08:00 Hct 37.0 % (35.4-49) 09/13/19 08:00 MCV 84.0 fl (80-96) 09/13/19 08:00 MCH 27.6 pg (25.7-33.7) 09/13/19 08:00 MCHC 32.9 g/dl (32.0-35.9) 09/13/19 08:00 RDW 16.9 % (11.9-15.9) H 09/13/19 08:00 Plt Count 258 K/MM3 (134-434) D 09/13/19 08:00 MPV 9.3 fl (7.5-11.1) 09/13/19 08:00 Absolute Neuts (auto) 2.8 K/mm3 (1.5-8.0) 09/13/19 08:00 Neutrophils % 54.8 % (42.8-82.8) 09/13/19 08:00 Lymphocytes % 34.1 % (8-40) D 09/13/19 08:00 Monocytes % 8.0 % (3.8-10.2) 09/13/19 08:00 Eosinophils % 2.1 % (0-4.5) 09/13/19 08:00 Basophils % 1.0 % (0-2.0) 09/13/19 08:00 Nucleated RBC % 0 % (0-0) 09/13/19 08:00 ESR 23 mm/hr (0-20) H 09/12/19 21:00 Sodium 139 mmol/L (136-145) 09/13/19 08:00 Potassium 4.2 mmol/L (3.5-5.1) 09/13/19 08:00 Chloride 105 mmol/L (98-107) 09/13/19 08:00 Carbon Dioxide 27 mmol/L (21-32) 09/13/19 08:00 Anion Gap 6 MMOL/L (8-16) L 09/13/19 08:00 BUN 9.4 mg/dL (7-18) 09/13/19 08:00 Creatinine 0.6 mg/dL (0.55-1.3) 09/13/19 08:00 Est GFR (CKD-EPI)AfAm 133.98 09/13/19 08:00 Est GFR (CKD-EPI)NonAf 115.60 09/13/19 08:00 POC Glucometer 171 UNITS (80-120) 09/13/19 16:26 Random Glucose 143 mg/dL (74-106) H 09/13/19 08:00 Hemoglobin A1c % 13.3 % (4.2-6.3) H 09/12/19 07:50 Calcium 9.2 mg/dL (8.5-10.1) 09/13/19 08:00 Phosphorus 3.6 mg/dL (2.5-4.9) 09/12/19 07:50 Magnesium 1.8 mg/dL (1.8-2.4) 09/12/19 07:50 Total Bilirubin 0.3 mg/dL (0.2-1) 09/10/19 08:45 AST 13 U/L (15-37) L 09/10/19 08:45 ALT 17 U/L (13-61) 09/10/19 08:45 Alkaline Phosphatase 42 U/L (45-117) L 09/10/19 08:45 Creatine Kinase 68 U/L (26-308) 09/09/19 00:42 Troponin I < 0.02 ng/ml (0.00-0.05) 09/09/19 00:42 C-Reactive Protein 3.0 MG/DL (0.00-0.3) H 09/13/19 08:00 Total Protein 5.5 g/dl (6.4-8.2) L 09/10/19 08:45 Albumin 2.5 g/dl (3.4-5.0) L 09/10/19 08:45 Triglycerides 41 mg/dL (0-150) 09/09/19 12:18 Cholesterol 66 mg/dL (50-200) 09/09/19 12:18 Total LDL Cholesterol 8 mg/dL (5-100) 09/09/19 12:18 HDL Cholesterol 56 mg/dL (40-60) 09/09/19 12:18 Lipase 88 U/L (73-393) 09/09/19 00:42 Beta-Hydroxybutyrate 24.2 mg/dL (0.2-2.8) H 09/09/19 00:42 TSH 0.62 uIU/ml (0.358-3.74) 09/09/19 12:18 Constitutional: Yes: Calm Eyes: Yes: Conjunctiva Clear HENT: Yes: Atraumatic Neck: Yes: Trachea Midline Cardiovascular: Yes: Regular Rate and Rhythm Respiratory: Yes: CTA Bilaterally Gastrointestinal Inspection: Yes: Scars (healed lap choly incisions) ...Auscultate: Yes: Normoactive Bowel Sounds ...Palpate: Yes: Soft, Other (nontender) ...Percussion: Yes: Tympanitic ...Rectal Exam: Yes: Guaiac Negative (no masses, 1+ prostate) Extremities: Yes: Other (right foot plantar ulcer) Wound/Incision: Yes: Other (right foor plantar surface) Neurological: Yes: Loss of Sensation (stocking - glove), Numbness Psychiatric: Yes: Alert, Oriented Labs: CBC, BMP 09/13/19 08:00 09/13/19 08:00 Imaging - Results Cat Scan: Report Reviewed ( Final Report CT ABDOMEN & PELVIS CT WITH CONTR Show Printer-Friendly Version Patient Name: Janine Oliveros : ID: [id number] Study Date: 09-Sep-2019 02:35 Jose E Almanzar Name: JANINE OLIVEROS DEPARTMENT OF RADIOLOGY Phys: Nanette Arguello RESIDENT : 1965 Age: 54 Sex: M [facility] Acct: [id number] Loc: [address] Exam Date: 09/09/19 Status: [place] [address] Unit Number: [id number] EXAM#: TYPE/EXAM: RESULT: [id number] CT/ABDOMEN PELVIS CT WITH CONTR HISTORY PROVIDED: Abdominal pain. Sequential axial images were obtained from the domes of the diaphragms through the symphysis pubis following the administration of intravenous contrast material. The lung bases are clear. The pancreas is moderately atrophic with multiple calcifications identified. These include multiple calculi within a markedly dilated main pancreatic duct. The duct measures approximately 1.5 cm. This is consistent with chronic, calcific pancreatitis. There are no peripancreatic inflammatory changes or fluid collections to suggest acute pancreatitis. No pancreatic masses are identified. The patient is S/P cholecystectomy. There is slight dilatation of the internal hepatic biliary tree without obvious obstruction. The liver, spleen, adrenal glands and right kidney demonstrate no significant abnormalities. There is malrotation of the left kidney with prominence of the renal pelvis and proximal ureter. No obvious obstruction is identified. There is no evidence of intra-abdominal or retroperitoneal lymphadenopathy or fluid collections. There is no evidence of pneumoperitoneum, bowel obstruction or intra-abdominal abscess. There is no CT evidence of acute appendicitis or diverticulitis. Examination of the pelvis demonstrates no evidence of pelvic masses, fluid collections or lymphadenopathy. There is a large amount retained fecal material, particularly within the right colon and rectum. There is no evidence of acute bony pathology. There is an old, ununited subcapital fracture of the left femoral neck. IMPRESSION: 1. Atrophic pancreas with multiple calcifications and calculi within a markedly dilated main pancreatic duct. This is consistent with chronic, calcific pancreatitis. There is no CT evidence of acute pancreatitis. 2. Fecal retention, no acute pathology within the abdomen or pelvis. Please see above discussion. Reported By: Oswaldo Fonseca MD 09/09/1935 Technologist: Josse Hackett Transcribed Date/Time: 09/09/19836 [employer]: Oswaldo Fonseca Printed Date/Time: By: Signed by: Oswaldo Fonseca Signed on: 09-Sep-2019 08:38) Problem List - Problems (1) Abdominal pain Code(s): R10.9 - UNSPECIFIED ABDOMINAL PAIN Qualifiers: Abdominal location: upper abdomen, unspecified Qualified Code(s): R10.10 - Upper abdominal pain, unspecified (2) Chronic calcific pancreatitis Code(s): K86.1 - OTHER CHRONIC PANCREATITIS (3) Recovering alcoholic in remission Code(s): F10.21 - ALCOHOL DEPENDENCE, IN REMISSION (4) Gastritis Code(s): K29.70 - GASTRITIS, UNSPECIFIED, WITHOUT BLEEDING (5) Colon adenomas Code(s): D12.6 - BENIGN NEOPLASM OF COLON, UNSPECIFIED (6) Diverticulosis Code(s): K57.90 - DVRTCLOS OF INTEST, PART UNSP, W/O PERF OR ABSCESS W/O BLEED (7) Diabetic neuropathy Code(s): E11.40 - TYPE 2 DIABETES MELLITUS WITH DIABETIC NEUROPATHY, UNSP (8) History of laparoscopic cholecystectomy Code(s): Z90.49 - ACQUIRED ABSENCE OF OTHER SPECIFIED PARTS OF DIGESTIVE TRACT (9) Diabetic foot ulcer Code(s): E11.621 - TYPE 2 DIABETES MELLITUS WITH FOOT ULCER; L97.509 - NON- PRESSURE CHRONIC ULCER OTH PRT UNSP FOOT W UNSP SEVERITY (10) Diabetes mellitus, insulin dependent (IDDM), uncontrolled Code(s): E10.65 - TYPE 1 DIABETES MELLITUS WITH HYPERGLYCEMIA Assessment/Plan Assessment: - Chronic abdominal pain due to chronic calcific alcoholic pancreatitis - Personal h/o colon adenoma. Will be due for surveillance 2021 - Diverticulosis - GERD and gastritis have resolved - Recovering alcoholic Plan: -- I have advised resumption of pancreatic enzyme replacement but Janine tells me that he cannot afford it. He anticipates getting outpatient medical coverage soon. He will then followup so that we can resume this therapy. I emphasized the need to continue to abstain from alcohol -- [id number] in 2021
[2019-09-13 17:35] VITALS: BP 111/78; PULSE 78; TEMP 98.4
== END 2019-09-13 19:09 | disposition home or self-care (01) | DRG 872 ==
LOC: JER 23:23 → JERBED 09-09 04:05 → J8W 09-09 10:06
PROVIDERS: ADMIT Internal Medicine; ATTEND Internal Medicine
DX: A41.01 Sepsis due to Methicillin susceptible Staphylococcus aureus (principal); K86.1 Other chronic pancreatitis; L97.518 Non-pressure chronic ulcer of other part of right foot with other specified severity; K86.0 Alcohol-induced chronic pancreatitis; R10.10 Upper abdominal pain, unspecified; E11.40 Type 2 diabetes mellitus with diabetic neuropathy, unspecified; K21.9 Gastro-esophageal reflux disease without esophagitis; K63.5 Polyp of colon; K57.90 Diverticulosis of intestine, part unspecified, without perforation or abscess without bleeding; I10 Essential (primary) hypertension; E78.00 Pure hypercholesterolemia, unspecified; E11.65 Type 2 diabetes mellitus with hyperglycemia; G89.29 Other chronic pain; R00.0 Tachycardia, unspecified; K59.00 Constipation, unspecified; K82.8 Other specified diseases of gallbladder; I95.9 Hypotension, unspecified; R50.9 Fever, unspecified; E11.621 Type 2 diabetes mellitus with foot ulcer; E83.39 Other disorders of phosphorus metabolism; K44.9 Diaphragmatic hernia without obstruction or gangrene; E11.610 Type 2 diabetes mellitus with diabetic neuropathic arthropathy; F10.21 Alcohol dependence, in remission; Z90.49 Acquired absence of other specified parts of digestive tract; K29.60 Other gastritis without bleeding; S72.002S Fracture of unspecified part of neck of left femur, sequela
CPT/HCPCS: 36415; 71046-TC-FY; 73630-TC-RT-FY; 73721-RT-TC; 74177-TC; 80048; 80053; 80061; 80307; 81003; 82010; 82550; 82962; 83036; 83690; 83721; 83735; 84100; 84443; 84484; 85025; 85651; 86140; 87040; 87070; 87077; 87086; 87186; 87205; 87804; 93005; 93010; 93925-TC; 99284-25; J0131; J1644; J7030

== ENCOUNTER 2020-06-24 16:42 | Inpatient (IN) | payer OTHER ==
[2020-06-24] MEDS ORDERED: ACETAMINOPHEN 1000 MG/100 ML VIAL (NON FORMULARY) IVPB ONE (18:00)
--- NOTE | 2020-06-24 18:26 | PDOC ---
History of Present Illness - General Chief Complaint: Wound Stated Complaint: WOUND Time Seen by Provider: 06/24/20 17:25 History Source: Patient Exam Limitations: No Limitations - History of Present Illness Initial Comments: 06/24/20 18:14 55M with PMH of DM, diabetic neuropathy, and previous smoker presents to the ED with 2 right foot ulcers for 2 weeks. He does not recall any precipitating event. His foot is very painful making it difficult to ambulate. He also noted purulent drainage, bleeding, and foul odor from the site. He reports fever/chills, nausea, vomiting, and swelling of the right lower leg. Denies chest pain, SOB, lightheadedness, abdominal pain. PMH: as in HPI SH: see below Meds: insulin Allergies: NKDA Tob/Etoh/Rec drugs: some alcohol, former smoker, no illicits PCP: Dr. Maria E HINKLE GENERAL/CONSTITUTIONAL: +fever/chills. No weakness. HEENT: No change in vision. No ear pain or discharge. No sore throat. CARDIOVASCULAR: No chest pain or shortness of breath RESPIRATORY: No cough, wheezing, or hemoptysis. GASTROINTESTINAL: +nausea, vomiting; no diarrhea or constipation. GENITOURINARY: No dysuria, frequency, or change in urination. MUSCULOSKELETAL: No joint or muscle swelling or pain. No neck or back pain. SKIN: 2 right foot ulcers NEUROLOGIC: No headache, vertigo, loss of consciousness, or change in strength/sensation. ENDOCRINE: No increased thirst. No abnormal weight change HEMATOLOGIC/LYMPHATIC: No anemia, easy bleeding, or history of blood clots. ALLERGIC/IMMUNOLOGIC: No hives or skin allergy. PE GENERAL: Awake, alert, and fully oriented; no acute distress HEAD: No signs of trauma, normocephalic, atraumatic EYES: PERRLA, EOMI, sclera anicteric, conjunctiva clear ENT: Auricles normal inspection, hearing grossly normal, nares patent, moist mucosa, oropharynx clear without exudates. NECK: Normal ROM, supple, no LAD, JVD, or masses HEART: Regular rate and rhythm, normal S1/S2, no murmurs, rubs or gallops, peripheral pulses normal and equal bilaterally. LUNGS: No distress, speaks full sentences, clear to auscultation bilaterally ABDOMEN: Soft, nontender. No guarding, no rebound. No masses EXTREMITIES: Right toes normal range of motion, sensation intact, 2+ pitting edema right foot and lower leg, +2 DP and posterior tibialis, cap refill intact NEUROLOGICAL: CNII-XII grossly intact. Normal speech, no focal sensorimotor deficits SKIN: right foot ~1cm plantar ulcer under 3rd/4th MTP, 0.5cm ulcer between 4 th/5th toes, both with purulent drainage, diffuse erythema extending from right midfoot to toes Assessment and Plan 1. Diabetic plantar ulcer 2. +/- osteomyelitis 3. +/- cellulitis 4. +/- gangrene Sriram Anna, PGY1 Emergency Medicine Past History - Medical History Allergies/Adverse Reactions: Allergies Allergy/AdvReac Type Severity Reaction Status Date / Time No Known Allergies Allergy Verified 06/24/20 16:54 Home Medications: Ambulatory Orders Docusate Sodium [Colace -] 100 mg PO DAILY #30 capsule 09/09/19 Insulin (Levemir) [Levemir Vial] 10 units SQ DAILY 30 Days #1 units 09/09/19 Pantoprazole Sodium [Protonix] 40 mg PO DAILY #30 tablet.dr 09/09/19 metFORMIN HCL [Glucophage -] 500 mg PO DAILY@0700 #30 tablet 09/09/19 Amoxicillin/Potassium Clav [Augmentin 875-125 Tablet] 1 each PO BID #14 tablet 09/13/19 Lancets/Blood Glucose Strips [Fora T60-J76-Q00-G47 Strp-Lnct] 1 each MC DAILY #1 combo..pkg 09/13/19 Miscellaneous Medical Supply [Glucometer Test Strips #100] 1 each TD ASDIR #1 box 09/13/19 Anemia: No Asthma: No Cancer: No Cardiac Disorders: No CVA: No COPD: No CHF: No DVT: No Diabetes: Yes (NIDDM,DIABETIC NEUROPATHY) GI Disorders: Yes (GERD,COLONIC POLYPS,DIVERTICULOSIS) Disorders: No HTN: Yes Hypercholesterolemia: Yes Kidney Stones: No Seizures: No Thyroid Disease: No - Surgical History Appendectomy: Yes Cholecystectomy: Yes (LAPAROSCOPIC CHOLECYSTECTOMY) Orthopedic Surgery: No (lt. hand surgery (job injury)) - Reproductive History Testicular Surgery: No - Psycho-Social/Smoking History Smoking History: Never smoked Have you smoked in the past 12 months: No Number of Cigarettes Smoked Daily: 10 If you are a former smoker, when did you quit?: 2010 Information on smoking cessation initiated: No 'Breaking Loose' booklet given: 01/30/16 - Substance Abuse Hx (Audit-C & DAST Scrn) How often the patient has a drink containing alcohol: Monthly or less Score: In Men: 4 or > Positive; In Women: 3 or > Positive: 1 Screen Result (Pos requires Nsg. Audit-10AR): Negative In the last yr the pt used illegal drug/Rx for NonMed reason: No Score: Yes response is considered Positive: 0 Screen Result (Positive result requires Nsg. DAST-10): Negative *Physical Exam - Vital Signs Last Vital Signs Temp Pulse Resp BP Pulse Ox 99.4 F 83 17 108/75 99 06/24/20 16:51 06/24/20 16:51 06/24/20 16:51 06/24/20 16:51 06/24/20 16:51 ED Treatment Course - LABORATORY CBC & Chemistry Diagram: 06/24/20 16:20 06/24/20 16:20 - RADIOLOGY Radiology Studies Ordered: Category Date Time Status LOWER EXTREMITY CT WITH CONTR [CT] Stat CT Scan 06/24/20 18:07 Ordered CHEST X-RAY PORTABLE* [RAD] Stat Radiology 06/24/20 18:04 Ordered Medical Decision Making - Medical Decision Making 06/24/20 18:26 55M with PMH of DM, diabetic neuropathy, and previous smoker presents to the ED with 2 right foot ulcers for 2 weeks. He does not recall any precipitating event. His foot is very painful making it difficult to ambulate. He also noted purulent drainage, bleeding, and foul odor from the site. +fever/chills, nausea, vomiting, and swelling of the right lower leg. On exam, 2+ pitting edema right foot and lower leg, neurovascularly intact, +2 DP and posterior tibialis, cap refill intact, right foot ~1cm plantar ulcer under 3rd/4th MTP, 0.5cm ulcer between 4th/5th toes, purulent drainage, diffuse erythema from right midfoot to toes. Assessment and Plan 1. Diabetic plantar ulcer 2. +/- osteomyelitis 3. +/- cellulitis 4. +/- gangrene - CBC, CMP, type and screen, ESR, CRP, lactate, right foot xray, right foot CT with contrast - started on IV vancomycin and zosyn - Pt signed out to night team Discharge - Discharge Information Problems reviewed: Yes Clinical Impression/Diagnosis: Diabetic foot ulcer Qualifiers: Diabetic foot ulcer location: other Diabetes mellitus type: type 1 Laterality: right Non-pressure ulcer stage: unspecified non-pressure ulcer stage Qualified Code(s): E10.621 - Type 1 diabetes mellitus with foot ulcer; L97.519 - Non- pressure chronic ulcer of other part of right foot with unspecified severity - Follow up/Referral Referrals: Latesha Sanderson MD [Primary Care Provider] - - Patient Discharge Instructions - Post Discharge Activity
[2020-06-24 18:35] LABS: BASO % 0.9 % (0-2.0); EOS % 0.8 % (0-4.5); HEMATOCRIT 36.8 % (35.4-49); HEMOGLOBIN 12.2 GM/dL (11.7-16.9); LYMPH % 12.2 % (8-40); MCH 30.2 pg (25.7-33.7); MCHC 33.1 g/dl (32.0-35.9); MEAN CELL VOLUME 91.2 fl (80-96); MEAN PLT VOLUME 8.6 fl (7.5-11.1); MONO % 6.7 % (3.8-10.2); NEUT % 79.4 % (42.8-82.8); PLATELET COUNT 348 K/MM3 (134-434); RBC 4.03 M/mm3 (4.00-5.60); RDW 14.1 % (11.9-15.9); WHITE BLOOD COUNT 11.1 K/mm3 (4.0-10.0)
[2020-06-24] MEDS ORDERED: VANCOMYCIN 1 GM in D5W (PRE-DOCKED) 1,000 MG/250 ML IVPB ONE (19:04)
[2020-06-24] MEDS ORDERED: ONDANSETRON 4 MG/2 ML VIAL IVPUSH ONE (19:04)
[2020-06-24 19:05] LABS: ALBUMIN 3.1 g/dl (3.4-5.0); BILIRUBIN,TOTAL 0.4 mg/dL (0.2-1); BLOOD UREA NITROGEN 6.7 mg/dL (7-18); CREATININE 0.7 mg/dL (0.55-1.3); TOT PROT 7.6 g/dl (6.4-8.2)
[2020-06-24] MEDS ORDERED: ACETAMINOPHEN INJECTION 100 ML IVPB ONE (19:33)
[2020-06-24] MEDS ORDERED: VANCOMYCIN 1 GRAM (PRE-DOCKED) 1,000 MG/250 ML BAG IVPB ONE (19:34)
[2020-06-24 19:44] LABS: VENOUS BASE EXCESS -0.3 mmol/L (-2-2); VENOUS O2 SATURATION 20.6 % (70-80); VENOUS PCO2 47.1 mmHg (38-52); VENOUS PH 7.354 (7.310-7.410)
[2020-06-24 19:49] LABS: ERYTHROCYTE SEDIMENTATION RATE 74 mm/hr (0-20)
--- NOTE | 2020-06-24 21:36 | PDOC ---
Documentation entered by Geoff Milan SCRIBE, acting as scribe for Luis Mcduffie DO. Luis Mcduffie DO: This documentation has been prepared by the Bjorn lind Angel, SCRIBE, under my direction and personally reviewed by me in its entirety. I confirm that the documentation accurately reflects all work, treatment, procedures, and medical decision making performed by me. Attending Attestation - Resident Resident Name: Sriram Anna - HPI HPI: 06/24/20 19:15 55 yo IDDM male coming in for right foot ulcer possible osteomyelitis from urgent care. admits to subjective fevers/chills and pain to the site Ulcer developed over past week No known trauma - Physicial Exam PE: 06/24/20 19:16 Right foot swollen erythema dorsum to right foot Exudates, discharges to 4 and 5th metatarsal Skin slothing on right foot erythematous DTP pulses intact 2 to 3+ edema lower extremity from tibia to right foot - Medical Decision Making 06/24/20 19:18 55 yo m diabtetic foot ulcer [employer] vs osteo IV antibiotics, labs May need immediate foot surgery Will consider transfer if indicated Heart Score/ECG Review - ECG Impressions Comment:: 06/24/20 21:27 EKG Normal sinus rhythm at 71 No acute ischemia Discharge - Discharge Information Clinical Impression/Diagnosis: Diabetic foot ulcer - Follow up/Referral Referrals: Latesha Sanderson MD [Primary Care Provider] - - Patient Discharge Instructions - Post Discharge Activity
--- NOTE | 2020-06-24 21:50 | PDOC ---
*Physical Exam - Vital Signs Last Vital Signs Temp Pulse Resp BP Pulse Ox 100.7 F H 72 18 115/76 99 06/24/20 19:52 06/24/20 19:52 06/24/20 19:52 06/24/20 19:52 06/24/20 19:52 ED Treatment Course - LABORATORY CBC & Chemistry Diagram: 06/24/20 16:20 06/24/20 16:20 - ADDITIONAL ORDERS Additional order review: Laboratory Results 06/24/20 06/24/20 06/24/20 18:50 18:20 18:20 VBG pH 7.354 POC VBG pCO2 47.1 POC VBG pO2 16.1 L VBG HCO3 25.7 VBG O2 Sat (Yohannes) 20.6 L VBG Base Excess -0.3 Sodium Potassium Chloride Carbon Dioxide Anion Gap BUN Creatinine Est GFR (CKD-EPI)AfAm Est GFR (CKD-EPI)NonAf Random Glucose Lactic Acid 2.0 Calcium Total Bilirubin AST ALT Alkaline Phosphatase C-Reactive Protein Total Protein Albumin Blood Type A POSITIVE Antibody Screen Negative 06/24/20 16:20 VBG pH POC VBG pCO2 POC VBG pO2 VBG HCO3 VBG O2 Sat (Yohannes) VBG Base Excess Sodium 135 L Potassium 4.0 Chloride 100 Carbon Dioxide 27 Anion Gap 8 BUN 6.7 L Creatinine 0.7 Est GFR (CKD-EPI)AfAm 124.87 Est GFR (CKD-EPI)NonAf 107.74 Random Glucose 252 H Lactic Acid Calcium 9.0 Total Bilirubin 0.4 AST 8 L ALT 12 L Alkaline Phosphatase 58 C-Reactive Protein 6.6 H Total Protein 7.6 Albumin 3.1 L Blood Type Antibody Screen 06/24/20 16:20 RBC 4.03 MCV 91.2 MCHC 33.1 RDW 14.1 D MPV 8.6 Neutrophils % 79.4 D Lymphocytes % 12.2 D Monocytes % 6.7 Eosinophils % 0.8 Basophils % 0.9 - RADIOLOGY Radiograph Interpretation: 06/24/20 23:03 DATE OF SERVICE: 2020-06-24 21:04:42 IMAGES: 436 EXAM: LOWER EXTREMITY CT WITH CONTR HISTORY: Right foot ulcer COMPARISON: None TECHNIQUE: One of more of the following dose reduction techniques were use: Automated exposure control adjustment of the mA and/or kV according to the patient size, use of iterative reconstructive technique. Axial images were performed with multi-planar reconstructions following a menstruation of 100 mL of Omnipaque 320. FINDINGS:There is an ulcer at the plantar aspect of the foot laterally with dif fuse soft tissue swelling and marked thickening thickening involving the fourth and fifth digits. There is abscess that extends from the base of the fourth metatarsal bone to the medial and lateral aspect of the distal fourth proximal phalanx. This collection measures approximately 3.9 cm in length by approximately 4.4 cm AP and 2.3 cm transverse. There is no evidence of periosteal reaction. No acute fracture. Visualized vessels are patent. There is osteoarthritic change greatest at the first proximal interphalangeal joint. No acute fracture. IMPRESSION: Diffuse soft tissue swelling with more focal area of soft tissue thickening and edema involving the fourth and fifth digits. Plantar ulcer lateral aspect of the foot with an approximately 3.9 x 4.4 x 2.3 cm abscess centered around the fourth distal metatarsal and proximal phalanx. No bone changes to suggest osteomyelitis at this time. One or more of the following dose reduction techniques were used: automated exposure control, adjustment of the mA and/or kV according to patient size, use of iterative reconstructive technique. THIS DOCUMENT HAS BEEN ELECTRONICALLY SIGNED Jaimee MD Puneet - Medications Given in the ED: ED Medications Discontinued Medications Generic Name Dose Route Start Last Admin Trade Name Freq PRN Reason Stop Dose Admin Acetaminophen 1,000 mg 06/24/20 18:00 06/24/20 19:51 Ofirmev Injection - IVPB 06/24/20 18:01 1,000 mg ONCE ONE Administration Ondansetron HCl 4 mg 06/24/20 19:04 06/24/20 19:51 Zofran Injection IVPUSH 06/24/20 19:05 4 mg ONCE ONE Administration Vancomycin HCl 1,000 mg 06/24/20 19:04 06/24/20 19:51 Vancomycin (Pre-Docked) IVPB 06/24/20 19:05 1,000 mg ONCE ONE Administration Protocol Medical Decision Making - Medical Decision Making 06/24/20 21:49 In short, 55yo M presenting with infected foot ulcer concerning for osteo S/p Vanc / Zosyn, pending CT Dispo: Admit 06/24/20 23:04 CT FINDINGS:There is an ulcer at the plantar aspect of the foot laterally with diffuse soft tissue swelling and marked thickening thickening involving the fourth and fifth digits. There is abscess that extends from the base of the fourth metatarsal bone to the medial and lateral aspect of the distal fourth proximal phalanx. This collection measures approximately 3.9 cm in length by approximately 4.4 cm AP and 2.3 cm transverse. There is no evidence of periosteal reaction. No acute fracture. Visualized vessels are patent. There is osteoarthritic change greatest at the first proximal interphalangeal joint. No acute fracture. IMPRESSION: Diffuse soft tissue swelling with more focal area of soft tissue thickening and edema involving the fourth and fifth digits. Plantar ulcer lateral aspect of the foot with an approximately 3.9 x 4.4 x 2.3 cm abscess centered around the fourth distal metatarsal and proximal phalanx. No bone changes to suggest osteomyelitis at this time. One or more of the following dose reduction techniques were used: automated exposure control, adjustment of the mA and/or kV according to patient size, use of iterative reconstructive technique. THIS DOCUMENT HAS BEEN ELECTRONICALLY SIGNED Jaimee MD Puneet 06/24/2020 22:57 EST Dispo: Admit for IV ABX Discharge - Discharge Information Problems reviewed: Yes Clinical Impression/Diagnosis: Diabetic foot ulcer Qualifiers: Diabetic foot ulcer location: other Diabetes mellitus type: type 1 Laterality: right Non-pressure ulcer stage: unspecified non-pressure ulcer stage Qualified Code(s): E10.621 - Type 1 diabetes mellitus with foot ulcer Condition: Guarded - Admission Yes - Follow up/Referral Referrals: Latesha Sanderson MD [Primary Care Provider] - - Patient Discharge Instructions - Post Discharge Activity
--- NOTE | 2020-06-25 01:26 | PN ---
Teaching Attending Note Name of Resident: Sharyn Capps ATTENDING PHYSICIAN STATEMENT I saw and evaluated the patient. I reviewed the resident's note and discussed the case with the resident. I agree with the resident's findings and plan as documented. SUBJECTIVE: 55yoM with history of T2DM on insulin but poor compliance due to insurance issues who presents with fever x2-3 days with right foot pain, swelling. Patient notes a chronic ulcer on the plantar aspect of his right foot for months but has been unable to follow up with podiatry or wound care recently due to lack of insurance. He has also had a wound between the 4th and 5th digits of his right foot for the past 2 weeks. Developed progressive pain, swelling, and redness of the right foot and presented to urgent care, who referred him to the ED. Febrile to 100.7, hemodynamically stable in the ED. Labs unremarkable with exception of mild ESR and CRP elevations and hyperglycemia. CT of the right foot showed diffuse soft tissue swlling and plantar ulcer with 3.9 x 4.4 x 2.3cm abscess centered aroudn the fourth distal metatarsal and proximal phalanx. No evidence of osteomyelitis noted. Patient received vancomycin and is admitted for further management. ROS: (+) right foot pain, erythema, swelling, purulent drainage, high sugars, fever (-) chest pain, N/V/D, dizziness, syncope OBJECTIVE: Vital Signs - 24 hr 06/24/20 06/24/20 06/25/20 16:51 19:52 01:54 Temperature 99.4 F 100.7 F H Pulse Rate 83 Pulse Rate [ 72 70 Left Radial] Respiratory 17 18 18 Rate Blood Pressure 108/75 Blood Pressure 115/76 99/66 [Left Arm] O2 Sat by Pulse 99 99 99 Oximetry (%) EXAM Gen: awake, alert, NAD HEENT: NC/AT CV: RRR, no MRG Resp: CTAB, unlabored Abd: Soft, NT, ND Ext: Right foot plantar ulcer with purulent drainage, woudn between 4th and 5th digits of right foot with serosanguinous drainage. Erythema, warmth, and swelling over the foot with edema extending to upper calf. Neuro: CN II-XII grossly intact Psych: AOx3, appropriate mood/affect Laboratory Results - last 24 hr 06/24/20 06/24/20 06/24/20 16:20 16:20 18:20 WBC 11.1 H RBC 4.03 Hgb 12.2 Hct 36.8 MCV 91.2 MCH 30.2 MCHC 33.1 RDW 14.1 D Plt Count 348 D MPV 8.6 Absolute Neuts (auto) 8.8 H Neutrophils % 79.4 D Lymphocytes % 12.2 D Monocytes % 6.7 Eosinophils % 0.8 Basophils % 0.9 Nucleated RBC % 0 ESR 74 H VBG pH POC VBG pCO2 POC VBG pO2 VBG HCO3 VBG O2 Sat (Yohannes) VBG Base Excess Sodium 135 L Potassium 4.0 Chloride 100 Carbon Dioxide 27 Anion Gap 8 BUN 6.7 L Creatinine 0.7 Est GFR (CKD-EPI)AfAm 124.87 Est GFR (CKD-EPI)NonAf 107.74 POC Glucometer Random Glucose 252 H Lactic Acid 2.0 Calcium 9.0 Total Bilirubin 0.4 AST 8 L ALT 12 L Alkaline Phosphatase 58 C-Reactive Protein 6.6 H Total Protein 7.6 Albumin 3.1 L Blood Type Antibody Screen 06/24/20 06/24/20 06/25/20 18:20 18:50 01:47 WBC RBC Hgb Hct MCV MCH MCHC RDW Plt Count MPV Absolute Neuts (auto) Neutrophils % Lymphocytes % Monocytes % Eosinophils % Basophils % Nucleated RBC % ESR VBG pH 7.354 POC VBG pCO2 47.1 POC VBG pO2 16.1 L VBG HCO3 25.7 VBG O2 Sat (Yohannes) 20.6 L VBG Base Excess -0.3 Sodium Potassium Chloride Carbon Dioxide Anion Gap BUN Creatinine Est GFR (CKD-EPI)AfAm Est GFR (CKD-EPI)NonAf POC Glucometer 290 Random Glucose Lactic Acid Calcium Total Bilirubin AST ALT Alkaline Phosphatase C-Reactive Protein Total Protein Albumin Blood Type A POSITIVE Antibody Screen Negative 06/25/20 03:07 WBC RBC Hgb Hct MCV MCH MCHC RDW Plt Count MPV Absolute Neuts (auto) Neutrophils % Lymphocytes % Monocytes % Eosinophils % Basophils % Nucleated RBC % ESR VBG pH POC VBG pCO2 POC VBG pO2 VBG HCO3 VBG O2 Sat (Yohannes) VBG Base Excess Sodium Potassium Chloride Carbon Dioxide Anion Gap BUN Creatinine Est GFR (CKD-EPI)AfAm Est GFR (CKD-EPI)NonAf POC Glucometer 134 Random Glucose Lactic Acid Calcium Total Bilirubin AST ALT Alkaline Phosphatase C-Reactive Protein Total Protein Albumin Blood Type Antibody Screen Imaging and EKG reviewed in chart ASSESSMENT AND PLAN: 55yoM with history of T2DM on insulin but poor compliance due to insurance issues who presents with fever and infected right foot ulcer with abscess. Acutely infected diabetic ulcer, purulent cellulitis with abscess CT without evidence of osteomyelitis; discrete abscess noted but actively draining on exam Likely early sepsis given fever; does not otherwise meet criteria - podiatry consult - continue vancomycin, add Zosyn - f/u wound and blood cultures Uncontrolled diabetes Patient is unable to take insulin as prescribed due to insurance issues - A1c - resume Lantus - ISS - diabetic diet - SW consult DVT ppx: SCD pending procedure
[2020-06-25] MEDS: INSULIN SLIDING SCALE (NOVOLOG) 1 VIAL SQ SCH ×5 (01:51→22:16)
[2020-06-25] MEDS ORDERED: INSULIN (LEVEMIR) 100 UNITS/ML UNITS SQ ONE (02:14)
[2020-06-25] MEDS ORDERED: SODIUM CHLORIDE 1,000 ML IV SCH (03:15)
--- NOTE | 2020-06-25 03:21 | HP ---
CHIEF COMPLAINT: my foot wound is getting worse PCP: none HISTORY OF PRESENT ILLNESS: 55yo M with PMHx of poorly-controlled DM, diabetic neuropathy, remote hx of tobacco and alcohol use who presents with two painful draining R foot ulcers. Patient is Guyanese speaking - [employer] complex case manager [id number] facilitated conversation. Patient explained that he has been experiencing increasing pain in his R foot that has had bloody discharge when he would ambulate, and with foul- smelling yellow-white discharge while lying down. He has had the pain for "quite a while" and it has been 10/10 for ~the last two weeks, now 5/10 in pain but gets worse with movement. He has not been able to see a doctor because he hasn't had insurance for the past 2-3 years, and access to care became even less accessible since COV[facility]. Patient endorsed fever at home, reportedly above 100F, and a headache with a popping sound. Also endorsed vomiting, SOB, green-brown diarrhea that looks like oil, and that he urinates frequently. Denied CP, palpitations, dysuria, and constipation. DM was diagnosed in ~2001, which was when he stopped drinking alcohol and smoking cigarets. ER course was notable for: (1) febrile 100.7F (2) labs: WBC 11.1, glucose 252, ESR 74, and CRP 6.6 (3) Lower extremity CT: diffuse soft tissue swelling with more focal area of soft tissue thickening and edema involving the fourth and fifth digits, plantar ulcer at lateral aspect of the foot with an approx 3.9 x 4.4 x 2.3 cm abscess centered around the fourth distal metatarsal and proximal phalanx. No bone changes to suggest osteomyelitis at this time Recent Travel: none PAST MEDICAL HISTORY: as per HPI PAST SURGICAL HISTORY: -lap osman -Left hand surgery Family History: daughter DM Father unspecified Heart disease Social History: Smoking: stopped smoking 11ys prior (smoked ~1ppd for 18ys) Alcohol: former chronic EtOH (1pint daily on weekdays) but stopped on DM dx Drugs: denied Work: was on disability, now no longer works nor on disability Home: Rents apt - lives with , son, and daughter Allergies No Known Allergies Allergy (Verified 06/24/20 16:54) HOME MEDICATIONS: Home Medications patient has not been taking any of his medications due to difficulties to access insurance and medical resources. Takes 15units insulin when he has it or can afford it. REVIEW OF SYSTEMS as per HPI PHYSICAL EXAMINATION Vital Signs - 24 hr 06/24/20 06/24/20 06/25/20 16:51 19:52 01:54 Temperature 99.4 F 100.7 F H Pulse Rate 83 Pulse Rate [ 72 70 Left Radial] Respiratory 17 18 18 Rate Blood Pressure 108/75 Blood Pressure 115/76 99/66 [Left Arm] O2 Sat by Pulse 99 99 99 Oximetry (%) GENERAL: M, very thin to cachectic body habitus,AAOx3, in no acute distress. HEAD: Normal with no signs of trauma. EYES: Pupils equal, round and reactive to light, extraocular movements intact EARS, NOSE, THROAT: mildly dry mucous membranes. NECK: No lymphadenopathy noted LUNGS: CTAB HEART: Regular rate and rhythm, normal S1 and S2 without murmur ABDOMEN: Soft, nontender, not distended, hypoactive bowel sounds EXTREMITIES: 2+ radial and 1+ dorsalis pedis pulses, upper and lower extremities equally warm to touch bilaterally, no tenderness or peripheral edema noted on L leg, R lower leg 1+ pitting edema with tenderness on palpation. R foot: plantar lateral deep ulcer with purulent white drainage upon application of pressure, deep ulcer in 4th interdigit webspace with serosanguinous drainage, ascending erythema to mid metatarsal area, entire R foot edematous and tender to palpation NEUROLOGICAL: Cranial nerves II-XII grossly intact. Normal speech, bilateral f acial movements PSYCHIATRIC: Cooperative and interactive. Good eye contact. concerned mood and affect appropriate for stated mood SKIN: no other rashes or lesions noted Laboratory Results - last 24 hr 06/24/20 06/24/20 06/24/20 16:20 16:20 18:20 WBC 11.1 H RBC 4.03 Hgb 12.2 Hct 36.8 MCV 91.2 MCH 30.2 MCHC 33.1 RDW 14.1 D Plt Count 348 D MPV 8.6 Absolute Neuts (auto) 8.8 H Neutrophils % 79.4 D Lymphocytes % 12.2 D Monocytes % 6.7 Eosinophils % 0.8 Basophils % 0.9 Nucleated RBC % 0 ESR 74 H VBG pH POC VBG pCO2 POC VBG pO2 VBG HCO3 VBG O2 Sat (Yohannes) VBG Base Excess Sodium 135 L Potassium 4.0 Chloride 100 Carbon Dioxide 27 Anion Gap 8 BUN 6.7 L Creatinine 0.7 Est GFR (CKD-EPI)AfAm 124.87 Est GFR (CKD-EPI)NonAf 107.74 POC Glucometer Random Glucose 252 H Lactic Acid 2.0 Calcium 9.0 Total Bilirubin 0.4 AST 8 L ALT 12 L Alkaline Phosphatase 58 C-Reactive Protein 6.6 H Total Protein 7.6 Albumin 3.1 L Blood Type Antibody Screen 06/24/20 06/24/20 06/25/20 18:20 18:50 01:47 WBC RBC Hgb Hct MCV MCH MCHC RDW Plt Count MPV Absolute Neuts (auto) Neutrophils % Lymphocytes % Monocytes % Eosinophils % Basophils % Nucleated RBC % ESR VBG pH 7.354 POC VBG pCO2 47.1 POC VBG pO2 16.1 L VBG HCO3 25.7 VBG O2 Sat (Yohannes) 20.6 L VBG Base Excess -0.3 Sodium Potassium Chloride Carbon Dioxide Anion Gap BUN Creatinine Est GFR (CKD-EPI)AfAm Est GFR (CKD-EPI)NonAf POC Glucometer 290 Random Glucose Lactic Acid Calcium Total Bilirubin AST ALT Alkaline Phosphatase C-Reactive Protein Total Protein Albumin Blood Type A POSITIVE Antibody Screen Negative ASSESSMENT/PLAN: 55yo M with PMHx of poorly-controlled DM, diabetic neuropathy, remote hx of tobacco and alcohol use who presents with two painful draining R foot ulcers. On admission patient was febrile 100.7F, and labs were remarkable for WBC 11.1, glucose 252, ESR 74, and CRP 6.6. Lower extremity CT showed diffuse soft tissue swelling with more focal area of soft tissue thickening and edema involving the fourth and fifth digits, plantar ulcer at lateral aspect of the foot with an approx 3.9 x 4.4 x 2.3 cm abscess centered around the fourth distal metatarsal and proximal phalanx. No bone changes to suggest osteomyelitis at this time, and patient was admitted for early sepsis. Early sepsis 2/2 draining diabetic foot ulcer 2/2 poorly controlled DM: patient has had difficulties accessing his necessary medications which led to poor control of his diabetes - started vancomycin and zosyn - ID consulted - podiatry consulted - placed wound care instructions - change dressings BID until further recs by podiatry - IVFs poorly-controlled DM - BGMs ACHS ISS - Levemir 15units given once - ordered UA, A1C *Social work consulted for further assisting patient in accessing necessary medical resources FEN - 75cc/h NS - replete lytes PRN - diabetic diet PPX - DVT: lovenox Dispo: [facility] Family Medical History Family History: As Documented Visit type - Emergency Visit Emergency Visit: Yes ED Registration Date: 06/24/20 Care time: The patient presented to the Emergency Department on the above date and was hospitalized for further evaluation of their emergent condition. - New Patient This patient is new to me today: Yes Date on this admission: 06/25/20 - Critical Care Critical Care patient: No ATTENDING PHYSICIAN STATEMENT I saw and evaluated the patient. I reviewed the resident's note and discussed the case with the resident. I agree with the resident's findings and plan as documented. SUBJECTIVE: OBJECTIVE: ASSESSMENT AND PLAN:
[2020-06-25] MEDS ORDERED: PIPERACILLIN/TAZOB 3.375 GM 3.375 GM/50 ML BAG IVPB ONE ×3 (03:56→19:58)
[2020-06-25] MEDS: PIPERACILLIN/TAZOB 3.375 GM 3.375 GM in DEXTROSE 5%-WATER - 50 ML IVPB SCH ×3 (04:06→20:12)
[2020-06-25] MEDS ORDERED: ACETAMINOPHEN 325 MG TABLET (FP) ONE (06:41)
[2020-06-25 07:23] LABS: BASO % 0.7 % (0-2.0); EOS % 1.7 % (0-4.5); HEMATOCRIT 33.9 % (35.4-49); HEMOGLOBIN 11.3 GM/dL (11.7-16.9); LYMPH % 16.4 % (8-40); MCH 29.9 pg (25.7-33.7); MCHC 33.2 g/dl (32.0-35.9); MEAN CELL VOLUME 90.3 fl (80-96); MEAN PLT VOLUME 8.3 fl (7.5-11.1); MONO % 8.2 % (3.8-10.2); PLATELET COUNT 330 K/MM3 (134-434); RBC 3.76 M/mm3 (4.00-5.60); RDW 13.9 % (11.9-15.9); WHITE BLOOD COUNT 9.4 K/mm3 (4.0-10.0)
[2020-06-25 07:50] LABS: ALBUMIN 2.5 g/dl (3.4-5.0); BILIRUBIN,TOTAL 0.4 mg/dL (0.2-1); BLOOD UREA NITROGEN 8.1 mg/dL (7-18); CREATININE 0.5 mg/dL (0.55-1.3); MAGNESIUM 1.8 mg/dL (1.8-2.4); PHOSPHOROUS 3.1 mg/dL (2.5-4.9); POTASSIUM 3.7 mmol/L (3.5-5.1); TOT PROT 6.3 g/dl (6.4-8.2)
[2020-06-25] MEDS ORDERED: VANCOMYCIN 1 GRAM (PRE-DOCKED) 1,000 MG/250 ML BAG IVPB ONE ×2 (09:55→10:00)
[2020-06-25] MEDS ORDERED: ENOXAPARIN NA (PORCINE) 40 MG/0.4 ML DISP.SYRIN SQ ONE (09:55)
[2020-06-25] MEDS: ENOXAPARIN NA (PORCINE) 40 MG/0.4 ML DISP.SYRIN SQ SCH (09:58)
[2020-06-25] MEDS ORDERED: INSULIN SLIDING SCALE (NOVOLOG) 1 VIAL SQ ONE (11:35)
--- NOTE | 2020-06-25 12:45 | EKG ---
Test Reason : Blood Pressure : / mmHG Vent. Rate : 071 BPM Atrial Rate : 071 BPM P-R Int : 136 ms QRS Dur : 102 ms QT Int : 400 ms P-R-T Axes : 023 055 048 degrees QTc Int : 434 ms NORMAL SINUS RHYTHM NORMAL ECG WHEN COMPARED WITH ECG OF 09-SEP-2019 00:31, NO SIGNIFICANT CHANGE WAS FOUND Confirmed by David Dunne ([id number]) on 06/25/2020 12:44:56 PM Referred By: Confirmed By:David Dunne
--- NOTE | 2020-06-25 17:17 | PN ---
Physical Exam: SUBJECTIVE: Patient seen and examined OBJECTIVE: Vital Signs Period Temp Pulse Resp BP Sys/Javed Pulse Ox Last 24 Hr 97.7 F-100.7 F 62-72 14-98 92-115/51-76 96-99 GENERAL: The patient is awake, alert, and fully oriented, in no acute distress. HEENT: AT/NC, PERRLA, neck supple LUNGS: Breath sounds equal, clear to auscultation bilaterally, no wheezes, no crackles, no accessory muscle use. HEART: Regular rate and rhythm, S1, S2 without murmur, rub or gallop. ABDOMEN: Soft, nontender, nondistended, normoactive bowel sounds, no guarding, no rebound, no hepatosplenomegaly, no masses. EXTREMITIES: Right foot plantar ulcer with purulent/bloody drainage, between 4th and 5th digits of right foot. Pulses +2 NEUROLOGICAL: Cranial nerves II through XII grossly intact. Normal speech, gait not observed. Laboratory Results - last 24 hr 06/24/20 06/24/20 06/24/20 16:20 16:20 18:20 WBC 11.1 H RBC 4.03 Hgb 12.2 Hct 36.8 MCV 91.2 MCH 30.2 MCHC 33.1 RDW 14.1 D Plt Count 348 D MPV 8.6 Absolute Neuts (auto) 8.8 H Neutrophils % 79.4 D Lymphocytes % 12.2 D Monocytes % 6.7 Eosinophils % 0.8 Basophils % 0.9 Nucleated RBC % 0 ESR 74 H VBG pH POC VBG pCO2 POC VBG pO2 VBG HCO3 VBG O2 Sat (Yohannes) VBG Base Excess Sodium 135 L Potassium 4.0 Chloride 100 Carbon Dioxide 27 Anion Gap 8 BUN 6.7 L Creatinine 0.7 Est GFR (CKD-EPI)AfAm 124.87 Est GFR (CKD-EPI)NonAf 107.74 POC Glucometer Random Glucose 252 H Hemoglobin A1c % Lactic Acid 2.0 Calcium 9.0 Phosphorus Magnesium Total Bilirubin 0.4 AST 8 L ALT 12 L Alkaline Phosphatase 58 C-Reactive Protein 6.6 H Total Protein 7.6 Albumin 3.1 L Blood Type Antibody Screen 06/24/20 06/24/20 06/25/20 18:20 18:50 01:47 WBC RBC Hgb Hct MCV MCH MCHC RDW Plt Count MPV Absolute Neuts (auto) Neutrophils % Lymphocytes % Monocytes % Eosinophils % Basophils % Nucleated RBC % ESR VBG pH 7.354 POC VBG pCO2 47.1 POC VBG pO2 16.1 L VBG HCO3 25.7 VBG O2 Sat (Yohannes) 20.6 L VBG Base Excess -0.3 Sodium Potassium Chloride Carbon Dioxide Anion Gap BUN Creatinine Est GFR (CKD-EPI)AfAm Est GFR (CKD-EPI)NonAf POC Glucometer 290 Random Glucose Hemoglobin A1c % Lactic Acid Calcium Phosphorus Magnesium Total Bilirubin AST ALT Alkaline Phosphatase C-Reactive Protein Total Protein Albumin Blood Type A POSITIVE Antibody Screen Negative 06/25/20 06/25/20 06/25/20 03:07 06:05 06:05 WBC 9.4 RBC 3.76 L Hgb 11.3 L Hct 33.9 L MCV 90.3 MCH 29.9 MCHC 33.2 RDW 13.9 Plt Count 330 MPV 8.3 Absolute Neuts (auto) 6.9 Neutrophils % 73.0 Lymphocytes % 16.4 D Monocytes % 8.2 Eosinophils % 1.7 D Basophils % 0.7 Nucleated RBC % 0 ESR VBG pH POC VBG pCO2 POC VBG pO2 VBG HCO3 VBG O2 Sat (Yohannes) VBG Base Excess Sodium 138 Potassium 3.7 Chloride 106 Carbon Dioxide 25 Anion Gap 8 BUN 8.1 Creatinine 0.5 L Est GFR (CKD-EPI)AfAm 143.39 Est GFR (CKD-EPI)NonAf 123.72 POC Glucometer 134 Random Glucose 94 Hemoglobin A1c % Lactic Acid Calcium 8.0 L Phosphorus 3.1 Magnesium 1.8 Total Bilirubin 0.4 AST 10 L ALT 9 L Alkaline Phosphatase 42 L C-Reactive Protein Total Protein 6.3 L Albumin 2.5 L Blood Type Antibody Screen 06/25/20 06/25/20 06/25/20 06:05 06:39 11:23 WBC RBC Hgb Hct MCV MCH MCHC RDW Plt Count MPV Absolute Neuts (auto) Neutrophils % Lymphocytes % Monocytes % Eosinophils % Basophils % Nucleated RBC % ESR VBG pH POC VBG pCO2 POC VBG pO2 VBG HCO3 VBG O2 Sat (Yohannes) VBG Base Excess Sodium Potassium Chloride Carbon Dioxide Anion Gap BUN Creatinine Est GFR (CKD-EPI)AfAm Est GFR (CKD-EPI)NonAf POC Glucometer 98 199 Random Glucose Hemoglobin A1c % 13.4 H Lactic Acid Calcium Phosphorus Magnesium Total Bilirubin AST ALT Alkaline Phosphatase C-Reactive Protein Total Protein Albumin Blood Type Antibody Screen 06/25/20 16:55 WBC RBC Hgb Hct MCV MCH MCHC RDW Plt Count MPV Absolute Neuts (auto) Neutrophils % Lymphocytes % Monocytes % Eosinophils % Basophils % Nucleated RBC % ESR VBG pH POC VBG pCO2 POC VBG pO2 VBG HCO3 VBG O2 Sat (Yohannes) VBG Base Excess Sodium Potassium Chloride Carbon Dioxide Anion Gap BUN Creatinine Est GFR (CKD-EPI)AfAm Est GFR (CKD-EPI)NonAf POC Glucometer 234 Random Glucose Hemoglobin A1c % Lactic Acid Calcium Phosphorus Magnesium Total Bilirubin AST ALT Alkaline Phosphatase C-Reactive Protein Total Protein Albumin Blood Type Antibody Screen Active Medications Generic Name Dose Route Start Last Admin Trade Name Freq PRN Reason Stop Dose Admin Enoxaparin Sodium 40 mg 06/25/20 10:00 06/25/20 09:58 Lovenox - SQ 40 mg DAILY ZANDER Administration Piperacillin Sod/Tazobactam 50 mls @ 100 mls/hr 06/25/20 03:15 Sod 3.375 gm/ Dextrose IVPB Q8H-IV ZANDER Protocol Piperacillin Sod/Tazobactam 50 mls @ 100 mls/hr 06/25/20 03:45 06/25/20 12:50 Sod 3.375 gm/ Dextrose IVPB 06/25/20 20:14 100 mls/hr Q8H ZANDER Administration Insulin Aspart 1 vial 06/25/20 00:43 06/25/20 11:26 Novolog Vial Sliding Scale - SQ 2 units ACHS ZANDER Administration Protocol Vancomycin HCl 1,000 mg 06/25/20 10:00 Vancomycin (Pre-Docked) IVPB BID ZANDER Protocol ASSESSMENT/PLAN: 55yo Man with history of T2DM on insulin but poor compliance due to insurance issues who admitted for fever, right foot pain, swelling # sepsis due to infected diabetic ulcer have fever, leukocytosis meeting sepsis criteria BP stable CT without evidence of osteomyelitis; discrete abscess noted but actively draining on exam will order MRI podiatry consult ID consult continue vancomycin/ Zosyn, trend vanc level after 3rd dose f/u wound and blood cultures DM DVT proph Visit type - Emergency Visit Emergency Visit: Yes ED Registration Date: 06/24/20 Care time: The patient presented to the Emergency Department on the above date and was hospitalized for further evaluation of their emergent condition. - New Patient This patient is new to me today: Yes Date on this admission: 06/25/20 - Critical Care Critical Care patient: No - Discharge Referral Referred to [facility] Med P[facility] No
[2020-06-25 21:35] LABS: URINE APPEARANCE CLOUDY; URINE BILIRUBIN NEGATIVE (NEGATIVE); URINE COLOR YELLOW; URINE GLUCOSE (UA) 3+ (NEGATIVE); URINE KETONE NEGATIVE (NEGATIVE); URINE LEUK ESTERASE NEGATIVE (NEGATIVE); URINE NITRITE NEGATIVE (NEGATIVE); URINE PROTEIN NEGATIVE (NEGATIVE)
[2020-06-25] MEDS ORDERED: VANCOMYCIN 1 GM in D5W (PRE-DOCKED) 1,000 MG/250 ML IVPB SCH (22:00)
[2020-06-26] MEDS ORDERED: DEXTROSE 5%-WATER - 50 ML IVPB ONE ×3 (01:10→17:47)
[2020-06-26] MEDS ORDERED: PIPERACILLIN/TAZOBACTAM 3.375 GM VIAL IVPB ONE ×3 (01:10→17:47)
[2020-06-26] MEDS ORDERED: morphine SULFATE 4 MG/ML VIAL IVPUSH PRN (01:30)
[2020-06-26] MEDS ORDERED: PIPERACILLIN/TAZOB 3.375 GM 3.375 GM in DEXTROSE 5%-WATER - 50 ML IVPB SCH (02:00)
[2020-06-26] MEDS: INSULIN SLIDING SCALE (NOVOLOG) 1 VIAL SQ SCH ×4 (06:41→22:09)
[2020-06-26 08:41] LABS: BASO % 1.1 % (0-2.0); EOS % 2.1 % (0-4.5); HEMATOCRIT 36.8 % (35.4-49); LYMPH % 22.7 % (8-40); MCH 29.8 pg (25.7-33.7); MCHC 32.6 g/dl (32.0-35.9); MEAN CELL VOLUME 91.3 fl (80-96); MEAN PLT VOLUME 8.1 fl (7.5-11.1); MONO % 7.2 % (3.8-10.2); NEUT % 66.9 % (42.8-82.8); PLATELET COUNT 361 K/MM3 (134-434); RBC 4.03 M/mm3 (4.00-5.60); RDW 14.1 % (11.9-15.9); WHITE BLOOD COUNT 7.9 K/mm3 (4.0-10.0)
[2020-06-26 08:48] LABS: POTASSIUM 3.9 mmol/L (3.5-5.1)
[2020-06-26 08:56] LABS: ALBUMIN 2.6 g/dl (3.4-5.0); BILIRUBIN,TOTAL 0.3 mg/dL (0.2-1); BLOOD UREA NITROGEN 10.3 mg/dL (7-18); CALCIUM 8.4 mg/dL (8.5-10.1); CREATININE 0.6 mg/dL (0.55-1.3); TOT PROT 6.5 g/dl (6.4-8.2)
[2020-06-26] MEDS: ENOXAPARIN NA (PORCINE) 40 MG/0.4 ML DISP.SYRIN SQ SCH (09:36)
[2020-06-26] MEDS ORDERED: INSULIN (NOVOLOG) ASPART 100 UNITS/ML 10ML VIAL ONE ×2 (12:23→19:21)
--- NOTE | 2020-06-26 13:54 | PN ---
Progress Note (short form) - Note Progress Note: ID CONSULT DICTATED INFECTED DIABETIC FOOT ULCER/ CELLULITIS/ ABSCESS/ OSTEOMYELITIS AWAIT C/S SURGICAL EVALUATION EMPIRIC VANCOMYCIN/ ZOSYN
[2020-06-26] MEDS: VANCOMYCIN 1 GRAM (PRE-DOCKED) 1,000 MG/250 ML BAG IVPB SCH (14:44)
--- NOTE | 2020-06-26 15:06 | PN ---
Physical Exam: SUBJECTIVE: Patient seen and examined at bedside reports warmth and pain of Right LE. OBJECTIVE: Vital Signs Period Temp Pulse Resp BP Sys/Javed Pulse Ox Last 24 Hr 97.9 F-99.2 F 62-78 18-20 99-118/63-80 97-99 GENERAL: AAOx3, in no acute distress HEENT: NCAT, PERRLA, EOMI, sclera anicteric, conjunctiva clear, oropharynx clear w/o exudates. MMM. NECK: Normal ROM, supple, no lymphadenopathy, JVD, or masses LUNGS: CTABL no wheezes/ rhonchi/ rales. No distress, speaks in full sentences. No increased work of breathing. HEART: RRR, normal S1 S2, no M/R/G, peripheral pulses 2+ and equal b/l ABDOMEN: Soft, non-tender, + BS. No guarding or rebound. No hepatomegaly or splenomegaly. MSK: ROM WNL, NO CVA tenderness EXTREMITIES: No peripheral edema. No clubbing or cyanosis. 2 x 2 cm deep plantar ulcer w/purulent drainage, between 4th and 5th digits of right foot. NEUROLOGICAL: CN II-XII intact. Normal speech, gait not observed, no focal sensorimotor deficits. PSYCH: Normal mood, normal affect. SKIN: Warm, Dry, normal turgor, no rashes or lesions noted Laboratory Results - last 24 hr 06/24/20 06/25/20 06/25/20 18:50 16:55 21:05 WBC RBC Hgb Hct MCV MCH MCHC RDW Plt Count MPV Absolute Neuts (auto) Neutrophils % Lymphocytes % Monocytes % Eosinophils % Basophils % Nucleated RBC % Sodium Potassium Chloride Carbon Dioxide Anion Gap BUN Creatinine Est GFR (CKD-EPI)AfAm Est GFR (CKD-EPI)NonAf POC Glucometer 234 Random Glucose Calcium Total Bilirubin AST ALT Alkaline Phosphatase Total Protein Albumin Urine Color Yellow Urine Appearance Cloudy Urine pH 6.0 Ur Specific [place] 1.031 Urine Protein Negative Urine Glucose (UA) 3+ H Urine Ketones Negative Urine Blood Negative Urine Nitrite Negative Urine Bilirubin Negative Urine Urobilinogen 1.0 Ur Leukocyte Esterase Negative COVID-19 (APRIL) Not detected 06/25/20 06/26/20 06/26/20 21:52 05:47 07:42 WBC 7.9 RBC 4.03 Hgb 12.0 Hct 36.8 MCV 91.3 MCH 29.8 MCHC 32.6 RDW 14.1 Plt Count 361 MPV 8.1 Absolute Neuts (auto) 5.3 Neutrophils % 66.9 Lymphocytes % 22.7 D Monocytes % 7.2 Eosinophils % 2.1 Basophils % 1.1 Nucleated RBC % 0 Sodium Potassium Chloride Carbon Dioxide Anion Gap BUN Creatinine Est GFR (CKD-EPI)AfAm Est GFR (CKD-EPI)NonAf POC Glucometer 338 254 Random Glucose Calcium Total Bilirubin AST ALT Alkaline Phosphatase Total Protein Albumin Urine Color Urine Appearance Urine pH Ur Specific [place] Urine Protein Urine Glucose (UA) Urine Ketones Urine Blood Urine Nitrite Urine Bilirubin Urine Urobilinogen Ur Leukocyte Esterase COVID-19 (APRIL) 06/26/20 06/26/20 07:42 12:05 WBC RBC Hgb Hct MCV MCH MCHC RDW Plt Count MPV Absolute Neuts (auto) Neutrophils % Lymphocytes % Monocytes % Eosinophils % Basophils % Nucleated RBC % Sodium 139 Potassium 3.9 Chloride 106 Carbon Dioxide 27 Anion Gap 6 L BUN 10.3 Creatinine 0.6 Est GFR (CKD-EPI)AfAm 133.04 Est GFR (CKD-EPI)NonAf 114.79 POC Glucometer 337 Random Glucose 211 H Calcium 8.4 L Total Bilirubin 0.3 AST 9 L ALT 9 L Alkaline Phosphatase 45 Total Protein 6.5 Albumin 2.6 L Urine Color Urine Appearance Urine pH Ur Specific [place] Urine Protein Urine Glucose (UA) Urine Ketones Urine Blood Urine Nitrite Urine Bilirubin Urine Urobilinogen Ur Leukocyte Esterase COVID-19 (APRIL) Active Medications Generic Name Dose Route Start Last Admin Trade Name Freq PRN Reason Stop Dose Admin Enoxaparin Sodium 40 mg 06/25/20 10:00 06/26/20 09:36 Lovenox - SQ 40 mg DAILY ZANDER Administration Piperacillin Sod/Tazobactam 50 mls @ 100 mls/hr 06/26/20 18:00 Sod 3.375 gm/ Dextrose IVPB Q8H-IV ZANDER Protocol Vancomycin HCl 1,000 mg in 250 mls @ 166.667 mls/hr 06/26/20 14:00 06/26/20 14:44 Vancomycin (Pre-Docked) IVPB 166.667 mls/hr Q12H ZANDER Administration Protocol Insulin Aspart 1 vial 06/25/20 00:43 06/26/20 12:31 Novolog Vial Sliding Scale - SQ 8 units ACHS ZANDER Administration Protocol Insulin Detemir 10 units 06/26/20 22:00 Levemir Vial SQ HS ZANDER Morphine Sulfate 1 mg 06/26/20 01:30 06/26/20 01:53 Morphine Sulfate IVPUSH 06/27/20 01:29 1 mg ONCE PRN Administration PAIN LEVEL 6-10 ASSESSMENT/PLAN: 55yo M with PMHx of poorly-controlled T2DM on insulin, diabetic neuropathy, remote hx of tobacco and alcohol use who presents with a painful draining R foot ulcers, admitted for sepsis 2/2 to infected diabetic foot ulcer. #Sepsis 2/2 to infected diabetic foot ulcer - Hx of poorly controlled DM, non compliance due to insurance issues. - In ER: T 100.7F, WBC 11.1, glucose 252, ESR 74, and CRP 6.6. - CT LE Lower extremity: diffuse soft tissue swelling with more focal area of soft tissue thickening and edema involving the fourth and fifth digits, plantar ulcer at lateral aspect of the foot with an approx 3.9 x 4.4 x 2.3 cm abscess centered around the fourth distal metatarsal and proximal phalanx. No bone angel nges to suggest osteomyelitis - ID consulted, Dr. Chua Empiric treatment with vancomycin and zosyn, on D1 - podiatry consulted, pending recs - afebril and hemodynamically stable - Wound culture: prelim: Group D strep or Entero Coccus, Beta Hemolytic Strep group c # poorly-controlled DM - Ua 3+ glucose, HbA1c 13 - BGMs ACHS ISS - Levemir 10 units sq HS - Social work consulted FEN - No standing fluids - Continue to monitor electrolytes - diabetic diet PPX - DVT: lovenox Dispo: Continue to monitor in [place] Visit type - Emergency Visit Emergency Visit: Yes ED Registration Date: 06/24/20 Care time: The patient presented to the Emergency Department on the above date and was hospitalized for further evaluation of their emergent condition. - New Patient This patient is new to me today: No - Critical Care Critical Care patient: No - Discharge Referral Referred to [facility] No ATTENDING PHYSICIAN STATEMENT I saw and evaluated the patient. I reviewed the resident's note and discussed the case with the resident. I agree with the resident's findings and plan as documented. SUBJECTIVE: OBJECTIVE: ASSESSMENT AND PLAN:
[2020-06-26] MEDS: PIPERACILLIN/TAZOB 3.375 GM 3.375 GM in DEXTROSE 5%-WATER - 50 ML IVPB SCH ×3 (16:05→17:56)
[2020-06-26] MEDS: VANCOMYCIN 1 GM in D5W (PRE-DOCKED) 1,000 MG/250 ML IVPB SCH ×2 (16:07→16:08)
--- NOTE | 2020-06-26 16:28 | CONS ---
DATE OF CONSULTATION: DATE OF DICTATION: 06/26/2020 INFECTIOUS DISEASE CONSULTATION HISTORY OF PRESENT ILLNESS: The patient is a 55-year-old diabetic male who is evaluated for diabetic foot infection. He has a history of poorly controlled diabetes mellitus, diabetic neuropathy, and a remote history of tobacco and alcohol use. He reports developing painful draining right plantar foot ulcers. He had been experiencing increasing pain in his right foot and noted bloody discharge when he would ambulate. He noted foul-smelling yellow discharge. He had the pain for several days to weeks, which became progressively worse over the past 2 weeks. He had not been able to see a physician because of insurance issues for the past 2-3 years and had difficulty accessing medical care during the COVID pandemic. Patient reports having fever at home, vomiting, some shortness of breath, and urinary frequency. PAST MEDICAL HISTORY: Positive for history of alcohol abuse, pancreatitis, pyelonephritis, insulin dependent diabetes mellitus. ALLERGIES: No known allergies. MEDICATION: Include: 1. Vancomycin. 2. Zosyn. 3. Lovenox. 4. Morphine. 5. Insulin. SOCIAL HISTORY: He resides in the community. He is a nonsmoker, recovering alcoholic. SYSTEMS REVIEW: Neurologic: No loss of consciousness, seizure activity, focal weakness. Cardiac: Negative for chest pain or palpitations. Respiratory: Negative for cough or sputum production. Gastrointestinal: Positive vomiting. No diarrhea. Genitourinary: Negative for urinary tract infection. LABORATORY DATA: White count 7.9, hematocrit 36.8, platelet count 361. Creatinine 0.6, ESR 74, COVID-19 negative. Urinalysis negative. Cultures pending. MRI of the foot shows soft tissue swelling with fluid collection adjacent to the 4th metatarsal. There is evidence of osteomyelitis involving the 4th metatarsal. PHYSICAL EXAMINATION: General: On physical examination, he is chronically ill appearing. Vital signs: Temperature 98.2, T-max 100.7, blood pressure 103/67, pulse 63 regular, respirations 18 per minute. HEENT: Sclerae anicteric. Cardiovascular: Heart sounds S1, S2. Lungs: Clear. Abdomen: Soft, nontender. Extremities: Examination of the right lower extremity, there is swelling present from below the knee to the foot. The foot is diffusely swollen. There is erythema present over the dorsal aspect of the foot. There is a 1-cm ulceration present on the plantar aspect of the foot adjacent to the 4th metatarsal. There is no purulent drainage noted. IMPRESSION: 1. Infected diabetic foot ulcer/cellulitis/abscess/osteomyelitis. 2. Rule out sepsis secondary to foot source. 3. Diabetes mellitus. Await cultures. Surgical evaluation. Empiric antibiotic coverage with vancomycin and Zosyn pending cultures. Local wound care. Thank you for the kind referral. DALE CHAPMAN M.D. [id number]
--- NOTE | 2020-06-26 18:32 | PN ---
Teaching Attending Note Name of Resident: Karri Cruz ATTENDING PHYSICIAN STATEMENT I saw and evaluated the patient. I reviewed the resident's note and discussed the case with the resident. I agree with the resident's findings and plan as documented. SUBJECTIVE: Ongoing R foot discomfort. No further fevers. OBJECTIVE: Fever resolved, Hemodynamically stable. Last Vital Signs Temp Pulse Resp BP Pulse Ox 99.1 F 66 20 103/72 97 06/26/20 16:57 06/26/20 16:57 06/26/20 16:57 06/26/20 16:57 06/26/20 10:00 HEENT - Atraumatic, Normocephalic. Heart - S1, S2, RRR Lungs - clear to auscultation Abdomen -Soft, non-tender. Bowel Sounds normal. Extremities - R foot large ulcerated lesion on plantar aspect with pustular exudate and surrounding erythema/tenderness. Laboratory Results - last 24 hr 06/24/20 06/25/20 06/25/20 18:50 21:05 21:52 WBC RBC Hgb Hct MCV MCH MCHC RDW Plt Count MPV Absolute Neuts (auto) Neutrophils % Lymphocytes % Monocytes % Eosinophils % Basophils % Nucleated RBC % Sodium Potassium Chloride Carbon Dioxide Anion Gap BUN Creatinine Est GFR (CKD-EPI)AfAm Est GFR (CKD-EPI)NonAf POC Glucometer 338 Random Glucose Calcium Total Bilirubin AST ALT Alkaline Phosphatase Total Protein Albumin Urine Color Yellow Urine Appearance Cloudy Urine pH 6.0 Ur Specific [place] 1.031 Urine Protein Negative Urine Glucose (UA) 3+ H Urine Ketones Negative Urine Blood Negative Urine Nitrite Negative Urine Bilirubin Negative Urine Urobilinogen 1.0 Ur Leukocyte Esterase Negative COVID-19 (APRIL) Not detected 06/26/20 06/26/20 06/26/20 05:47 07:42 07:42 WBC 7.9 RBC 4.03 Hgb 12.0 Hct 36.8 MCV 91.3 MCH 29.8 MCHC 32.6 RDW 14.1 Plt Count 361 MPV 8.1 Absolute Neuts (auto) 5.3 Neutrophils % 66.9 Lymphocytes % 22.7 D Monocytes % 7.2 Eosinophils % 2.1 Basophils % 1.1 Nucleated RBC % 0 Sodium 139 Potassium 3.9 Chloride 106 Carbon Dioxide 27 Anion Gap 6 L BUN 10.3 Creatinine 0.6 Est GFR (CKD-EPI)AfAm 133.04 Est GFR (CKD-EPI)NonAf 114.79 POC Glucometer 254 Random Glucose 211 H Calcium 8.4 L Total Bilirubin 0.3 AST 9 L ALT 9 L Alkaline Phosphatase 45 Total Protein 6.5 Albumin 2.6 L Urine Color Urine Appearance Urine pH Ur Specific [place] Urine Protein Urine Glucose (UA) Urine Ketones Urine Blood Urine Nitrite Urine Bilirubin Urine Urobilinogen Ur Leukocyte Esterase COVID-19 (APRIL) 06/26/20 06/26/20 12:05 17:19 WBC RBC Hgb Hct MCV MCH MCHC RDW Plt Count MPV Absolute Neuts (auto) Neutrophils % Lymphocytes % Monocytes % Eosinophils % Basophils % Nucleated RBC % Sodium Potassium Chloride Carbon Dioxide Anion Gap BUN Creatinine Est GFR (CKD-EPI)AfAm Est GFR (CKD-EPI)NonAf POC Glucometer 337 235 Random Glucose Calcium Total Bilirubin AST ALT Alkaline Phosphatase Total Protein Albumin Urine Color Urine Appearance Urine pH Ur Specific [place] Urine Protein Urine Glucose (UA) Urine Ketones Urine Blood Urine Nitrite Urine Bilirubin Urine Urobilinogen Ur Leukocyte Esterase COVID-19 (APRIL) Current Medications Generic Name Dose Route Start Last Admin Trade Name Freq PRN Reason Stop Dose Admin Enoxaparin Sodium 40 mg 06/25/20 10:00 06/26/20 09:36 Lovenox - SQ 40 mg DAILY ZANDER Administration Piperacillin Sod/Tazobactam 50 mls @ 100 mls/hr 06/26/20 18:00 06/26/20 17:56 Sod 3.375 gm/ Dextrose IVPB 100 mls/hr Q8H-IV ZANDER Administration Protocol Vancomycin HCl 1,000 mg in 250 mls @ 166.667 mls/hr 06/26/20 14:00 06/26/20 14:44 Vancomycin (Pre-Docked) IVPB 166.667 mls/hr Q12H ZANDER Administration Protocol Insulin Aspart 1 vial 06/25/20 00:43 06/26/20 17:22 Novolog Vial Sliding Scale - SQ 4 units ACHS ZANDER Administration Protocol Insulin Detemir 10 units 06/26/20 22:00 Levemir Vial SQ HS ZANDER Morphine Sulfate 1 mg 06/26/20 01:30 06/26/20 01:53 Morphine Sulfate IVPUSH 06/27/20 01:29 1 mg ONCE PRN Administration PAIN LEVEL 6-10 Home Medications Medication Instructions Recorded Docusate Sodium [Colace -] 100 mg PO DAILY #30 capsule 09/09/19 Insulin (Levemir) [Levemir Vial] 10 units SQ DAILY 30 Days #1 units 09/09/19 Pantoprazole Sodium [Protonix] 40 mg PO DAILY #30 tablet. 09/09/19 metFORMIN HCL [Glucophage -] 500 mg PO DAILY@0700 #30 tablet 09/09/19 Amoxicillin/Potassium Clav 1 each PO BID #14 tablet 09/13/19 [Augmentin 875-125 Tablet] Lancets/Blood Glucose Strips [Fora 1 each MC DAILY #1 combo..pkg 09/13/19 [id number] Strp-Lnct] Miscellaneous Medical Supply 1 each TD ASDIR #1 box 09/13/19 [Glucometer Test Strips #100] ASSESSMENT AND PLAN: 55 year old male with history of DM 2, GERD, admitted for fever, right foot pain/swelling/tenderness 1. Sepsis secondary to Diabetic Foot ulcer/abscess Fever/Leukocytosis resolved. CT RLE - plantar ulcer with abscess MRI RLE - consistent with OM 4th MT and 4th digit with associated collection. Wound Cx - Beta-hemolytic Strep, Group D Strep/enterococcus. Continue IV Zosyn/Vanco ID/Podiatry consulted - awaiting Podiatry eval. 2. DM 2 - Uncontrolled, A1C 13.4. Metformin held. Maintain on Levemir and Novolog sliding scale. DVT Px - Lovenox SQ
[2020-06-26] MEDS ORDERED: PT OWN MED DRAWER 7, Y5N ONE (19:22)
[2020-06-26] MEDS ORDERED: MELATONIN 5 MG TABLETS PO ONE (21:52)
[2020-06-26] MEDS ORDERED: INSULIN (LEVEMIR) 100 UNITS/ML UNITS SQ SCH (22:00)
[2020-06-27] MEDS ORDERED: PIPERACILLIN/TAZOBACTAM 3.375 GM VIAL IVPB ONE ×3 (01:38→17:09)
[2020-06-27] MEDS ORDERED: DEXTROSE 5%-WATER - 50 ML IVPB ONE ×3 (01:39→17:09)
[2020-06-27] MEDS: PIPERACILLIN/TAZOB 3.375 GM 3.375 GM in DEXTROSE 5%-WATER - 50 ML IVPB SCH ×3 (02:12→17:19)
[2020-06-27] MEDS: VANCOMYCIN 1 GRAM (PRE-DOCKED) 1,000 MG/250 ML BAG IVPB SCH ×2 (02:32→14:28)
[2020-06-27] MEDS ORDERED: DOCUSATE SODIUM 100 MG CAPSULE (FP) PO PRN (05:58)
[2020-06-27] MEDS: INSULIN SLIDING SCALE (NOVOLOG) 1 VIAL SQ SCH ×4 (06:47→21:30)
[2020-06-27 08:13] LABS: BASO % 1.1 % (0-2.0); EOS % 1.9 % (0-4.5); HEMOGLOBIN 10.7 GM/dL (11.7-16.9); LYMPH % 20.4 % (8-40); MCH 29.5 pg (25.7-33.7); MCHC 32.4 g/dl (32.0-35.9); MEAN CELL VOLUME 91.1 fl (80-96); MEAN PLT VOLUME 8.2 fl (7.5-11.1); MONO % 9.4 % (3.8-10.2); NEUT % 67.2 % (42.8-82.8); PLATELET COUNT 344 K/MM3 (134-434); RBC 3.62 M/mm3 (4.00-5.60); RDW 14.2 % (11.9-15.9); WHITE BLOOD COUNT 7.4 K/mm3 (4.0-10.0)
[2020-06-27 08:36] LABS: ALBUMIN 2.4 g/dl (3.4-5.0); BILIRUBIN,TOTAL 0.3 mg/dL (0.2-1); BLOOD UREA NITROGEN 7.3 mg/dL (7-18); CALCIUM 8.3 mg/dL (8.5-10.1); CREATININE 0.5 mg/dL (0.55-1.3); MAGNESIUM 1.9 mg/dL (1.8-2.4); PHOSPHOROUS 3.4 mg/dL (2.5-4.9); POTASSIUM 4.1 mmol/L (3.5-5.1); TOT PROT 6.1 g/dl (6.4-8.2)
[2020-06-27] MEDS: ENOXAPARIN NA (PORCINE) 40 MG/0.4 ML DISP.SYRIN SQ SCH (10:34)
--- NOTE | 2020-06-27 12:16 | CONSULT ---
Consult Consult Specialty:: Podiatry Reason for Consultation:: Abscess, OM right foot - History of Present Illness History of Present Illness: Chronic plantar foot wound. Present with new wound between toes 4&5. Cellulitis with swelling. - Past Medical History Cardio/Vascular: Yes: HTN, Hyperlipdemia Gastrointestinal: Yes: Diverticulosis, Gastritis, GERD, Hiatal Hernia (resolved on 2017 EGD), Pancreatitis (chronic calcific alcoholic panceatitis), Other (left colon adenoma removed 12/05) Infectious Disease: Yes: Other (right foot plantar infection) Endocrine: Yes: Diabetes Mellitus (with diabetic neuropathy, right Charcot's foot ?) - Past Surgical History Past Surgical History: Yes: Cholecystectomy - Alcohol/Substance Use Hx Alcohol Use: Yes (recovering alcoholic since 2015) History of Substance Use: reports: None - Smoking History Smoking history: Never smoked Have you smoked in the past 12 months: No Aproximately how many cigarettes per day: 10 If you are a former smoker, when did you quit?: 2010 - Social History Usual Living Arrangement: With Spouse ADL: Independent Occupation: [employer] employee History of Recent Travel: No Home Medications - Allergies Allergies/Adverse Reactions: Allergies Allergy/AdvReac Type Severity Reaction Status Date / Time No Known Allergies Allergy Verified 06/24/20 16:54 - Home Medications Home Medications: Ambulatory Orders Docusate Sodium [Colace -] 100 mg PO DAILY #30 capsule 09/09/19 Insulin (Levemir) [Levemir Vial] 10 units SQ DAILY 30 Days #1 units 09/09/19 Pantoprazole Sodium [Protonix] 40 mg PO DAILY #30 tablet.dr 09/09/19 metFORMIN HCL [Glucophage -] 500 mg PO DAILY@0700 #30 tablet 09/09/19 Amoxicillin/Potassium Clav [Augmentin 875-125 Tablet] 1 each PO BID #14 tablet 09/13/19 Lancets/Blood Glucose Strips [Fora [id number] Strp-Lnct] 1 each MC DAILY #1 combo..pkg 09/13/19 Miscellaneous Medical Supply [Glucometer Test Strips #100] 1 each TD ASDIR #1 box 09/13/19 Family Medical History Family Hx Congestive Heart Failure: Father ( 72) Family Hx Diabetes: Brother Physical Exam Vital Signs: Vital Signs Temperature 98.6 F 06/27/20 09:00 Pulse Rate 68 06/27/20 09:00 Respiratory Rate 18 06/27/20 09:00 Blood Pressure 93/67 06/27/20 09:00 O2 Sat by Pulse Oximetry (%) 98 06/27/20 09:00 Wound/Incision: Yes: Other (om on mri, +abscess, +grade 3 wound sub met 4, +grade 3 wound interdigitally 4&5, +old fractures on metatarsals) Labs: CBC, BMP 06/27/20 06:40 06/27/20 06:40 Assessment/Plan om abscess cellulitis May need I&D and partial amputation. Needs vascular clearance. Hgba1c ordered. Betadine dressing change daily. ID on case. Will follow. Reviewed MRI report and reviewed foot xray.
--- NOTE | 2020-06-27 12:51 | PN ---
Physical Exam: SUBJECTIVE: Patient seen and examined at bedside, reports Improvement of RLE pain. Denies any fever, chills, nausea, vomiting, diarrhea, chest pain, SOB OBJECTIVE: Vital Signs Period Temp Pulse Resp BP Sys/Javed Pulse Ox Last 24 Hr 98.5 F-99.1 F 60-68 18-20 93-103/55-72 97-99 GENERAL: AAOx3, in no acute distress HEENT: NCAT, PERRLA, EOMI, sclera anicteric, conjunctiva clear, oropharynx clear w/o exudates. MMM. NECK: Normal ROM, supple, no lymphadenopathy, JVD, or masses LUNGS: CTABL no wheezes/ rhonchi/ rales. No distress, speaks in full sentences. No increased work of breathing. HEART: RRR, normal S1 S2, no M/R/G, peripheral pulses 2+ and equal b/l ABDOMEN: Soft, non-tender, + BS. No guarding or rebound. No hepatomegaly or splenomegaly. MSK: ROM WNL, NO CVA tenderness EXTREMITIES: No peripheral edema. No clubbing or cyanosis. 2 x 2 cm deep plantar ulcer w/purulent drainage, between 4th and 5th digits of right foot. NEUROLOGICAL: CN II-XII intact. Normal speech, gait not observed, no focal sensorimotor deficits. PSYCH: Normal mood, normal affect. SKIN: Warm, Dry, normal turgor, no rashes or lesions noted Laboratory Results - last 24 hr 06/26/20 06/26/20 06/26/20 12:05 17:19 21:45 WBC RBC Hgb Hct MCV MCH MCHC RDW Plt Count MPV Absolute Neuts (auto) Neutrophils % Lymphocytes % Monocytes % Eosinophils % Basophils % Nucleated RBC % Sodium Potassium Chloride Carbon Dioxide Anion Gap BUN Creatinine Est GFR (CKD-EPI)AfAm Est GFR (CKD-EPI)NonAf POC Glucometer 337 235 423 Random Glucose Calcium Phosphorus Magnesium Total Bilirubin AST ALT Alkaline Phosphatase Total Protein Albumin 06/27/20 06/27/20 06/27/20 06:29 06:40 06:40 WBC 7.4 RBC 3.62 L Hgb 10.7 L Hct 33.0 L MCV 91.1 MCH 29.5 MCHC 32.4 RDW 14.2 Plt Count 344 MPV 8.2 Absolute Neuts (auto) 4.9 Neutrophils % 67.2 Lymphocytes % 20.4 Monocytes % 9.4 Eosinophils % 1.9 Basophils % 1.1 Nucleated RBC % 0 Sodium 136 Potassium 4.1 Chloride 104 Carbon Dioxide 27 Anion Gap 6 L BUN 7.3 Creatinine 0.5 L Est GFR (CKD-EPI)AfAm 143.39 Est GFR (CKD-EPI)NonAf 123.72 POC Glucometer 210 Random Glucose 208 H Calcium 8.3 L Phosphorus 3.4 Magnesium 1.9 Total Bilirubin 0.3 AST 6 L ALT 9 L Alkaline Phosphatase 43 L Total Protein 6.1 L Albumin 2.4 L 06/27/20 12:11 WBC RBC Hgb Hct MCV MCH MCHC RDW Plt Count MPV Absolute Neuts (auto) Neutrophils % Lymphocytes % Monocytes % Eosinophils % Basophils % Nucleated RBC % Sodium Potassium Chloride Carbon Dioxide Anion Gap BUN Creatinine Est GFR (CKD-EPI)AfAm Est GFR (CKD-EPI)NonAf POC Glucometer 320 Random Glucose Calcium Phosphorus Magnesium Total Bilirubin AST ALT Alkaline Phosphatase Total Protein Albumin Active Medications Generic Name Dose Route Start Last Admin Trade Name Freq PRN Reason Stop Dose Admin Docusate Sodium 100 mg 06/27/20 05:58 Colace - PO BID PRN CONSTIPATION Enoxaparin Sodium 40 mg 06/25/20 10:00 06/27/20 10:34 Lovenox - SQ 40 mg DAILY ZANDER Administration Piperacillin Sod/Tazobactam 50 mls @ 100 mls/hr 06/26/20 18:00 06/27/20 10:35 Sod 3.375 gm/ Dextrose IVPB 100 mls/hr Q8H-IV ZANDER Administration Protocol Vancomycin HCl 1,000 mg in 250 mls @ 166.667 mls/hr 06/26/20 14:00 06/27/20 02:32 Vancomycin (Pre-Docked) IVPB 166.667 mls/hr Q12H ZANDER Administration Protocol Insulin Aspart 1 vial 06/25/20 00:43 06/27/20 12:22 Novolog Vial Sliding Scale - SQ 8 units ACHS ZANDER Administration Protocol Insulin Detemir 18 units 06/27/20 05:57 Levemir Vial SQ HS ZANDER Imaging: CT RLE: diffuse soft tissue swelling with more focal area of soft tissue thickening and edema involving the fourth and fifth digits, plantar ulcer at lateral aspect of the foot with an approx 3.9 x 4.4 x 2.3 cm abscess centered around the fourth distal metatarsal and proximal phalanx. No bone changes to suggest osteomyelitis MRI LE: Extensive soft tissue swelling dorsal to the foot predominantly above the distal aspect of the fourth metatarsal bone with multiloculated fluid collection 2.3 cm in diameter at best related on sagittal T2 image #8 compatible with subcutaneous abscess collection. Also noted extensive bone marrow edema predominantly mid and distal aspect of the fourth metatarsal bone compatible with osteomyelitis. Also noted minimal bone marrow edema of the proximal phalanx of the fourth digit which may related to osteomyelitis or to secondary reactive hyperemia. ASSESSMENT/PLAN: 55 yo M with PMHx of poorly-controlled T2DM on insulin, diabetic neuropathy, remote hx of tobacco and alcohol use who presents with a painful draining R foot ulcers, admitted for sepsis 2/2 to infected diabetic foot ulcer. #Sepsis 2/2 to infected diabetic foot ulcer #Osteomyelitis of RLE - Hx of poorly controlled DM, non compliance due to insurance issues. - In ER: T 100.7F, WBC 11.1, glucose 252, ESR 74, and CRP 6.6. - CT LE: Plantar ulcer with evidence of abscess - MRI LE: Fourth metatarsal bone with osteomyelitis - afebril and hemodynamically stable - Wound culture: prelim: Group D strep or Entero Coccus, Beta Hemolytic Strep group c - podiatry consulted, pending eval and recs - Continue with Empiric treatment with vancomycin and zosyn, on D2 # poorly-controlled DM - Ua 3+ glucose, HbA1c 13 - BGMs ACHS ISS - Levemir 18 units sq HS - Social work consulted FEN - No standing fluids - Continue to monitor electrolytes - diabetic diet PPX - DVT: lovenox Dispo: Continue to monitor in [place], Pending Podiatry eval Visit type - Emergency Visit Emergency Visit: Yes ED Registration Date: 06/24/20 Care time: The patient presented to the Emergency Department on the above date and was hospitalized for further evaluation of their emergent condition. - New Patient This patient is new to me today: No - Critical Care Critical Care patient: No - Discharge Referral Referred to [facility] No ATTENDING PHYSICIAN STATEMENT I saw and evaluated the patient. I reviewed the resident's note and discussed the case with the resident. I agree with the resident's findings and plan as documented. SUBJECTIVE: OBJECTIVE: ASSESSMENT AND PLAN:
--- NOTE | 2020-06-27 16:45 | PN ---
Teaching Attending Note Name of Resident: Karri Cruz ATTENDING PHYSICIAN STATEMENT I saw and evaluated the patient. I reviewed the resident's note and discussed the case with the resident. I agree with the resident's findings and plan as documented. SUBJECTIVE: Ongoing R foot discomfort. No further fevers. OBJECTIVE: Fever resolved, Hemodynamically stable. Last Vital Signs Temp Pulse Resp BP Pulse Ox 98.9 F 80 18 112/76 98 06/27/20 15:06 06/27/20 15:06 06/27/20 15:06 06/27/20 15:06 06/27/20 15:06 Heart - S1, S2, RRR Lungs - clear to auscultation Abdomen -Soft, non-tender. Bowel Sounds normal. Extremities - R foot large ulcerated lesion on plantar aspect with pustular exudate and surrounding erythema/tenderness - dressed. Laboratory Results - last 24 hr 06/26/20 06/26/20 06/27/20 17:19 21:45 06:29 WBC RBC Hgb Hct MCV MCH MCHC RDW Plt Count MPV Absolute Neuts (auto) Neutrophils % Lymphocytes % Monocytes % Eosinophils % Basophils % Nucleated RBC % Sodium Potassium Chloride Carbon Dioxide Anion Gap BUN Creatinine Est GFR (CKD-EPI)AfAm Est GFR (CKD-EPI)NonAf POC Glucometer 235 423 210 Random Glucose Calcium Phosphorus Magnesium Total Bilirubin AST ALT Alkaline Phosphatase Total Protein Albumin 06/27/20 06/27/20 06/27/20 06:40 06:40 12:11 WBC 7.4 RBC 3.62 L Hgb 10.7 L Hct 33.0 L MCV 91.1 MCH 29.5 MCHC 32.4 RDW 14.2 Plt Count 344 MPV 8.2 Absolute Neuts (auto) 4.9 Neutrophils % 67.2 Lymphocytes % 20.4 Monocytes % 9.4 Eosinophils % 1.9 Basophils % 1.1 Nucleated RBC % 0 Sodium 136 Potassium 4.1 Chloride 104 Carbon Dioxide 27 Anion Gap 6 L BUN 7.3 Creatinine 0.5 L Est GFR (CKD-EPI)AfAm 143.39 Est GFR (CKD-EPI)NonAf 123.72 POC Glucometer 320 Random Glucose 208 H Calcium 8.3 L Phosphorus 3.4 Magnesium 1.9 Total Bilirubin 0.3 AST 6 L ALT 9 L Alkaline Phosphatase 43 L Total Protein 6.1 L Albumin 2.4 L Current Medications Generic Name Dose Route Start Last Admin Trade Name Freq PRN Reason Stop Dose Admin Docusate Sodium 100 mg 06/27/20 05:58 06/27/20 14:40 Colace - PO 100 mg BID PRN Administration CONSTIPATION Enoxaparin Sodium 40 mg 06/25/20 10:00 06/27/20 10:34 Lovenox - SQ 40 mg DAILY [facility] Administration Piperacillin Sod/Tazobactam 50 mls @ 100 mls/hr 06/26/20 18:00 06/27/20 10:35 Sod 3.375 gm/ Dextrose IVPB 100 mls/hr Q8H-IV [facility] Administration Protocol Vancomycin HCl 1,000 mg in 250 mls @ 166.667 mls/hr 06/26/20 14:00 06/27/20 14:28 Vancomycin (Pre-Docked) IVPB 166.667 mls/hr Q12H [facility] Administration Protocol Insulin Aspart 1 vial 06/25/20 00:43 06/27/20 12:22 Novolog Vial Sliding Scale - SQ 8 units ACHS [facility] Administration Protocol Insulin Detemir 18 units 06/27/20 05:57 Levemir Vial SQ [facility] Home Medications Medication Instructions Recorded Docusate Sodium [Colace -] 100 mg PO DAILY #30 capsule 09/09/19 Insulin (Levemir) [Levemir Vial] 10 units SQ DAILY 30 Days #1 units 09/09/19 Pantoprazole Sodium [Protonix] 40 mg PO DAILY #30 tablet. 09/09/19 metFORMIN HCL [Glucophage -] 500 mg PO DAILY@0700 #30 tablet 09/09/19 Amoxicillin/Potassium Clav 1 each PO BID #14 tablet 09/13/19 [Augmentin 875-125 Tablet] Lancets/Blood Glucose Strips [Fora 1 each MC DAILY #1 combo..pkg 09/13/19 [id number] Strp-Lnct] Miscellaneous Medical Supply 1 each TD ASDIR #1 box 09/13/19 [Glucometer Test Strips #100] ASSESSMENT AND PLAN: 55 year old male with history of DM 2, GERD, admitted for fever, right foot pain/swelling/tenderness 1. Sepsis secondary to Diabetic Foot ulcer/abscess/Osteomyelitis Fever/Leukocytosis resolved. CT RLE - plantar ulcer with abscess MRI RLE - consistent with OM 4th MT and 4th digit with associated collection. Wound Cx - Beta-hemolytic Strep, Group D Strep/enterococcus. Continue IV Zosyn/Vanco ID/Podiatry following. Podiatry requests Vascular Surgery clearance prior to Podiatry intervention. 2. DM 2 - Uncontrolled, A1C 13.4. Metformin held. Maintain on Levemir and Novolog sliding scale. DVT Px - Lovenox SQ
[2020-06-27] MEDS: INSULIN (LEVEMIR) 100 UNITS/ML UNITS SQ SCH (21:29)
[2020-06-27] MEDS ORDERED: ACETAMINOPHEN 325 MG TABLET (FP) PO ONE (21:35)
--- NOTE | 2020-06-27 22:04 | PN ---
Progress Note, Physician Chief Complaint: WAKE,ALERT IN BED REPORTS LESS FOOT SWELLING AND PAIN AFEBRILE WBC WNL WOUND C/S PENDING - Current Medication List Current Medications: Active Medications Docusate Sodium (Colace -) 100 mg PO BID PRN PRN Reason: CONSTIPATION Last Admin: 06/27/20 14:40 Dose: 100 mg Documented by: Enoxaparin Sodium (Lovenox -) 40 mg SQ DAILY [facility] Last Admin: 06/27/20 10:34 Dose: 40 mg Documented by: Piperacillin Sod/Tazobactam (Sod 3.375 gm/ Dextrose) 50 mls @ 100 mls/hr IVPB Q8H-IV [facility]; Protocol Last Admin: 06/27/20 17:19 Dose: 100 mls/hr Documented by: Vancomycin HCl (Vancomycin (Pre-Docked)) 1,000 mg in 250 mls @ 166.667 mls/hr IVPB Q12H [facility]; Protocol Last Admin: 06/27/20 14:28 Dose: 166.667 mls/hr Documented by: Insulin Aspart (Novolog Vial Sliding Scale -) 1 vial SQ ACHS [facility]; Protocol Last Admin: 06/27/20 21:30 Dose: 10 units Documented by: Insulin Detemir (Levemir Vial) 18 units SQ HS [facility] Last Admin: 06/27/20 21:29 Dose: 18 units Documented by: - Objective Vital Signs: Vital Signs Temperature 99.4 F 06/27/20 20:18 Pulse Rate 78 06/27/20 20:18 Respiratory Rate 18 06/27/20 20:18 Blood Pressure 104/73 06/27/20 20:18 O2 Sat by Pulse Oximetry (%) 97 06/27/20 20:24 Constitutional: Yes: No Distress Eyes: Yes: Conjunctiva Clear Cardiovascular: Yes: Regular Rate and Rhythm, S1, S2 Respiratory: Yes: CTA Bilaterally Gastrointestinal: Yes: Normal Bowel Sounds, Soft Extremities: Yes: Other (R FOOT REMAINS SWOLLEN; SL LESS ERYTHEMATOUS) Labs: CBC, BMP 06/27/20 06:40 06/27/20 06:40 Assessment/Plan INFECTED DIABETIC FOOT ULCER/ CELLULITIS/ ABSCESS/OM AWAIT C/S CONTINUE ZOSYN/ VANCOMYCIN DEBRIDEMENT
[2020-06-27] MEDS ORDERED: MELATONIN 5 MG TABLETS PO ONE (22:44)
[2020-06-28] MEDS ORDERED: DEXTROSE 5%-WATER - 50 ML IVPB ONE ×4 (01:54→20:54)
[2020-06-28] MEDS ORDERED: PIPERACILLIN/TAZOBACTAM 3.375 GM VIAL IVPB ONE ×4 (01:54→20:54)
[2020-06-28] MEDS: PIPERACILLIN/TAZOB 3.375 GM 3.375 GM in DEXTROSE 5%-WATER - 50 ML IVPB SCH ×3 (01:57→17:52)
[2020-06-28] MEDS: VANCOMYCIN 1 GRAM (PRE-DOCKED) 1,000 MG/250 ML BAG IVPB SCH ×3 (02:22→14:09)
[2020-06-28] MEDS: INSULIN SLIDING SCALE (NOVOLOG) 1 VIAL SQ SCH ×4 (06:16→21:50)
[2020-06-28] MEDS ORDERED: INSULIN (NOVOLOG) ASPART 100 UNITS/ML 10ML VIAL ONE ×2 (07:43→17:47)
[2020-06-28] MEDS ORDERED: INSULIN (LEVEMIR) 100 UNITS/ML UNITS SQ ONE (07:44)
[2020-06-28 08:07] LABS: BASO % 0.8 % (0-2.0); EOS % 1.7 % (0-4.5); HEMATOCRIT 33.6 % (35.4-49); LYMPH % 20.7 % (8-40); MCH 29.6 pg (25.7-33.7); MCHC 32.6 g/dl (32.0-35.9); MEAN CELL VOLUME 90.9 fl (80-96); MEAN PLT VOLUME 8.4 fl (7.5-11.1); MONO % 8.8 % (3.8-10.2); PLATELET COUNT 343 K/MM3 (134-434); RDW 13.9 % (11.9-15.9); WHITE BLOOD COUNT 6.4 K/mm3 (4.0-10.0)
[2020-06-28 08:31] LABS: ALBUMIN 2.4 g/dl (3.4-5.0); BILIRUBIN,TOTAL 0.6 mg/dL (0.2-1); BLOOD UREA NITROGEN 12.7 mg/dL (7-18); CALCIUM 8.7 mg/dL (8.5-10.1); CREATININE 0.5 mg/dL (0.55-1.3); MAGNESIUM 1.9 mg/dL (1.8-2.4); POTASSIUM 4.2 mmol/L (3.5-5.1); TOT PROT 6.3 g/dl (6.4-8.2)
[2020-06-28] MEDS: ENOXAPARIN NA (PORCINE) 40 MG/0.4 ML DISP.SYRIN SQ SCH (10:04)
--- NOTE | 2020-06-28 12:10 | PN ---
Progress Note (short form) - Note Progress Note: Vascular Surgery Pt seen and examined. Pt with right plantar diabetic foot ulcer with erythema of foot. Asked to see for vascular clearance. Pt has palpable DP and PT pulses. Pt will likely need drainage. Cleared for podiatry intervention. Syd Tolentino DO
--- NOTE | 2020-06-28 14:17 | PN ---
Physical Exam: SUBJECTIVE: Patient seen and examined at bedside, no new complaints. OBJECTIVE: Vital Signs Period Temp Pulse Resp BP Sys/Javed Pulse Ox Last 24 Hr 97.2 F-99.4 F 61-80 18-20 99-134/63-76 81-98 GENERAL: AAOx3, in no acute distress HEENT: NCAT, PERRLA, EOMI, sclera anicteric, conjunctiva clear, oropharynx clear w/o exudates. MMM. NECK: Normal ROM, supple, no lymphadenopathy, JVD, or masses LUNGS: CTABL no wheezes/ rhonchi/ rales. No distress, speaks in full sentences. No increased work of breathing. HEART: RRR, normal S1 S2, no M/R/G, peripheral pulses 2+ and equal b/l ABDOMEN: Soft, non-tender, + BS. No guarding or rebound. No hepatomegaly or splenomegaly. MSK: ROM WNL, NO CVA tenderness EXTREMITIES: No peripheral edema. No clubbing or cyanosis. 2 x 2 cm deep plantar ulcer w/purulent drainage, between 4th and 5th digits of right foot. NEUROLOGICAL: CN II-XII intact. Normal speech, gait not observed, no focal sensorimotor deficits. PSYCH: Normal mood, normal affect. SKIN: Warm, Dry, normal turgor, no rashes or lesions noted Laboratory Results - last 24 hr 06/27/20 06/27/20 06/28/20 16:55 21:28 02:45 WBC RBC Hgb Hct MCV MCH MCHC RDW Plt Count MPV Absolute Neuts (auto) Neutrophils % Lymphocytes % Monocytes % Eosinophils % Basophils % Nucleated RBC % Sodium Potassium Chloride Carbon Dioxide Anion Gap BUN Creatinine Est GFR (CKD-EPI)AfAm Est GFR (CKD-EPI)NonAf POC Glucometer 378 383 Random Glucose Hemoglobin A1c % Calcium Phosphorus Magnesium Total Bilirubin AST ALT Alkaline Phosphatase Total Protein Albumin Vancomycin Pre-Dose 5.4 06/28/20 06/28/20 06/28/20 06:16 06:57 06:57 WBC 6.4 RBC 3.70 L Hgb 11.0 L Hct 33.6 L MCV 90.9 MCH 29.6 MCHC 32.6 RDW 13.9 Plt Count 343 MPV 8.4 Absolute Neuts (auto) 4.3 Neutrophils % 68.0 Lymphocytes % 20.7 Monocytes % 8.8 Eosinophils % 1.7 Basophils % 0.8 Nucleated RBC % 0 Sodium Potassium Chloride Carbon Dioxide Anion Gap BUN Creatinine Est GFR (CKD-EPI)AfAm Est GFR (CKD-EPI)NonAf POC Glucometer 280 Random Glucose Hemoglobin A1c % 13.6 H Calcium Phosphorus Magnesium Total Bilirubin AST ALT Alkaline Phosphatase Total Protein Albumin Vancomycin Pre-Dose 06/28/20 06/28/20 06:57 11:29 WBC RBC Hgb Hct MCV MCH MCHC RDW Plt Count MPV Absolute Neuts (auto) Neutrophils % Lymphocytes % Monocytes % Eosinophils % Basophils % Nucleated RBC % Sodium 137 Potassium 4.2 Chloride 105 Carbon Dioxide 27 Anion Gap 6 L BUN 12.7 Creatinine 0.5 L Est GFR (CKD-EPI)AfAm 143.39 Est GFR (CKD-EPI)NonAf 123.72 POC Glucometer 119 Random Glucose 251 H Hemoglobin A1c % Calcium 8.7 Phosphorus 4.0 Magnesium 1.9 Total Bilirubin 0.6 AST 8 L ALT 11 L Alkaline Phosphatase 44 L Total Protein 6.3 L Albumin 2.4 L Vancomycin Pre-Dose Active Medications Generic Name Dose Route Start Last Admin Trade Name Freq PRN Reason Stop Dose Admin Docusate Sodium 100 mg 06/27/20 05:58 06/27/20 14:40 Colace - PO 100 mg BID PRN Administration CONSTIPATION Enoxaparin Sodium 40 mg 06/25/20 10:00 06/28/20 10:04 Lovenox - SQ Not Given DAILY [facility] Piperacillin Sod/Tazobactam 50 mls @ 100 mls/hr 06/26/20 18:00 06/28/20 10:04 Sod 3.375 gm/ Dextrose IVPB 100 mls/hr Q8H-IV [facility] Administration Protocol Vancomycin HCl 1,000 mg in 250 mls @ 166.667 mls/hr 06/26/20 14:00 06/28/20 14:09 Vancomycin (Pre-Docked) IVPB 166.667 mls/hr Q12H [facility] Administration Protocol Insulin Aspart 1 vial 06/25/20 00:43 06/28/20 11:39 Novolog Vial Sliding Scale - SQ Not Given ACHS [facility] Protocol Insulin Detemir 18 units 06/27/20 05:57 06/27/20 21:29 Levemir Vial SQ 18 units HS [facility] Administration Imaging: CT RLE: diffuse soft tissue swelling with more focal area of soft tissue thickening and edema involving the fourth and fifth digits, plantar ulcer at lateral aspect of the foot with an approx 3.9 x 4.4 x 2.3 cm abscess centered around the fourth distal metatarsal and proximal phalanx. No bone changes to suggest osteomyelitis MRI LE: Extensive soft tissue swelling dorsal to the foot predominantly above the distal aspect of the fourth metatarsal bone with multiloculated fluid collection 2.3 cm in diameter at best related on sagittal T2 image #8 compatible with subcutaneous abscess collection. Also noted extensive bone marrow edema predominantly mid and distal aspect of the fourth metatarsal bone compatible with osteomyelitis. Also noted minimal bone marrow edema of the proximal phalanx of the fourth digit which may related to osteomyelitis or to secondary reactive hyperemia. ASSESSMENT/PLAN: 55 yo M with PMHx of poorly-controlled T2DM on insulin, diabetic neuropathy, remote hx of tobacco and alcohol use who presents with a painful draining R foot ulcers, admitted for sepsis 2/2 to infected diabetic foot ulcer. #Sepsis 2/2 to infected diabetic foot ulcer #Osteomyelitis of RLE - Hx of poorly controlled DM, non compliance due to insurance issues. - In ER: T 100.7F, WBC 11.1, glucose 252, ESR 74, and CRP 6.6. - CT LE: Plantar ulcer with evidence of abscess - MRI LE: Fourth metatarsal bone with osteomyelitis - afebril and hemodynamically stable - Wound culture: prelim: Group D strep or Entero Coccus, Beta Hemolytic Strep group c - Vascular consulted, Dr. posey, cleared for podiatry intervention - podiatry consulted, recs appreciated Will evaluate over weekend, if no improvement will schedule for surgery on Thursday or Thursday - Continue with Empiric treatment with vancomycin and zosyn, on D3 # poorly-controlled DM - Ua 3+ glucose, HbA1c 13 - BGMs ACHS ISS - Levemir 18 units sq HS - Social work consulted FEN - No standing fluids - Continue to monitor electrolytes - diabetic diet PPX - DVT: lovenox Dispo: Continue to monitor in [place], Pending Podiatry eval Visit type - Emergency Visit Emergency Visit: Yes ED Registration Date: 06/24/20 Care time: The patient presented to the Emergency Department on the above date and was hospitalized for further evaluation of their emergent condition. - New Patient This patient is new to me today: No - Critical Care Critical Care patient: No - Discharge Referral Referred to [facility] Med P.C.: No ATTENDING PHYSICIAN STATEMENT I saw and evaluated the patient. I reviewed the resident's note and discussed the case with the resident. I agree with the resident's findings and plan as documented. SUBJECTIVE: OBJECTIVE: ASSESSMENT AND PLAN:
--- NOTE | 2020-06-28 15:26 | PN ---
Progress Note (short form) - Note Progress Note: Went to room pt unavailable. +om,+cellulitis right foot,grade 3 wound right om cellulitis abscess? Discussed with vascular. Cleared for intervention if necessary. Continue IVABX. Will evaluate over weekend if no improvement will schedule for sx Thursday or Thursday. Continue wound care.
--- NOTE | 2020-06-28 16:07 | PN ---
Teaching Attending Note Name of Resident: Karri Cruz ATTENDING PHYSICIAN STATEMENT I saw and evaluated the patient. I reviewed the resident's note and discussed the case with the resident. I agree with the resident's findings and plan as documented. SUBJECTIVE: Ongoing R foot discomfort. No further fevers. OBJECTIVE: Afebrile, Hemodynamically stable. Last Vital Signs Temp Pulse Resp BP Pulse Ox 98.5 F 81 20 117/64 98 06/28/20 15:00 06/28/20 15:00 06/28/20 15:00 06/28/20 15:00 06/28/20 15:00 Heart - S1, S2, RRR Lungs - clear to auscultation Abdomen - Soft, non-tender. Bowel Sounds normal. Extremities - R foot large ulcerated lesion on plantar aspect with pustular exudate and surrounding erythema/tenderness - dressed. Laboratory Results - last 24 hr 06/27/20 06/27/20 06/28/20 16:55 21:28 02:45 WBC RBC Hgb Hct MCV MCH MCHC RDW Plt Count MPV Absolute Neuts (auto) Neutrophils % Lymphocytes % Monocytes % Eosinophils % Basophils % Nucleated RBC % Sodium Potassium Chloride Carbon Dioxide Anion Gap BUN Creatinine Est GFR (CKD-EPI)AfAm Est GFR (CKD-EPI)NonAf POC Glucometer 378 383 Random Glucose Hemoglobin A1c % Calcium Phosphorus Magnesium Total Bilirubin AST ALT Alkaline Phosphatase Total Protein Albumin Vancomycin Pre-Dose 5.4 06/28/20 06/28/20 06/28/20 06:16 06:57 06:57 WBC 6.4 RBC 3.70 L Hgb 11.0 L Hct 33.6 L MCV 90.9 MCH 29.6 MCHC 32.6 RDW 13.9 Plt Count 343 MPV 8.4 Absolute Neuts (auto) 4.3 Neutrophils % 68.0 Lymphocytes % 20.7 Monocytes % 8.8 Eosinophils % 1.7 Basophils % 0.8 Nucleated RBC % 0 Sodium Potassium Chloride Carbon Dioxide Anion Gap BUN Creatinine Est GFR (CKD-EPI)AfAm Est GFR (CKD-EPI)NonAf POC Glucometer 280 Random Glucose Hemoglobin A1c % 13.6 H Calcium Phosphorus Magnesium Total Bilirubin AST ALT Alkaline Phosphatase Total Protein Albumin Vancomycin Pre-Dose 06/28/20 06/28/20 06:57 11:29 WBC RBC Hgb Hct MCV MCH MCHC RDW Plt Count MPV Absolute Neuts (auto) Neutrophils % Lymphocytes % Monocytes % Eosinophils % Basophils % Nucleated RBC % Sodium 137 Potassium 4.2 Chloride 105 Carbon Dioxide 27 Anion Gap 6 L BUN 12.7 Creatinine 0.5 L Est GFR (CKD-EPI)AfAm 143.39 Est GFR (CKD-EPI)NonAf 123.72 POC Glucometer 119 Random Glucose 251 H Hemoglobin A1c % Calcium 8.7 Phosphorus 4.0 Magnesium 1.9 Total Bilirubin 0.6 AST 8 L ALT 11 L Alkaline Phosphatase 44 L Total Protein 6.3 L Albumin 2.4 L Vancomycin Pre-Dose Current Medications Generic Name Dose Route Start Last Admin Trade Name Freq PRN Reason Stop Dose Admin Docusate Sodium 100 mg 06/27/20 05:58 06/27/20 14:40 Colace - PO 100 mg BID PRN Administration CONSTIPATION Enoxaparin Sodium 40 mg 06/25/20 10:00 06/28/20 10:04 Lovenox - SQ Not Given DAILY [facility]ER Piperacillin Sod/Tazobactam 50 mls @ 100 mls/hr 06/26/20 18:00 06/28/20 10:04 Sod 3.375 gm/ Dextrose IVPB 100 mls/hr Q8H-IV [facility] Administration Protocol Vancomycin HCl 1,000 mg in 250 mls @ 166.667 mls/hr 06/26/20 14:00 06/28/20 14:09 Vancomycin (Pre-Docked) IVPB 166.667 mls/hr Q12H [facility] Administration Protocol Insulin Aspart 1 vial 06/25/20 00:43 06/28/20 11:39 Novolog Vial Sliding Scale - SQ Not Given ACHS [facility] Protocol Insulin Detemir 18 units 06/27/20 05:57 06/27/20 21:29 Levemir Vial SQ 18 units HS [facility] Administration Home Medications Medication Instructions Recorded Docusate Sodium [Colace -] 100 mg PO DAILY #30 capsule 09/09/19 Insulin (Levemir) [Levemir Vial] 10 units SQ DAILY 30 Days #1 units 09/09/19 Pantoprazole Sodium [Protonix] 40 mg PO DAILY #30 tablet. 09/09/19 metFORMIN HCL [Glucophage -] 500 mg PO DAILY@0700 #30 tablet 09/09/19 Amoxicillin/Potassium Clav 1 each PO BID #14 tablet 09/13/19 [Augmentin 875-125 Tablet] Lancets/Blood Glucose Strips [Fora 1 each MC DAILY #1 combo..pkg 09/13/19 [id number] Strp-Lnct] Miscellaneous Medical Supply 1 each TD ASDIR #1 box 09/13/19 [Glucometer Test Strips #100] ASSESSMENT AND PLAN: 55 year old male with history of DM 2, GERD, admitted for fever, right foot pain/swelling/tenderness 1. Sepsis secondary to Diabetic Foot ulcer/abscess/Osteomyelitis Fever/Leukocytosis resolved. CT RLE - plantar ulcer with abscess MRI RLE - consistent with OM 4th MT and 4th digit with associated collection. Wound Cx - Beta-hemolytic Strep, Strep veridans, coag neg Staph Continue IV Zosyn/Vanco ID/Podiatry following. ID recommends debridement. Cleared for Podiatry surgery by Vascular surgery. Podiatry now postponed surgical intervention until next week. 2. DM 2 - Uncontrolled, A1C 13.4. Metformin held. Maintain on Levemir and Novolog sliding scale. DVT Px - Lovenox SQ
[2020-06-28] MEDS: INSULIN (LEVEMIR) 100 UNITS/ML UNITS SQ SCH (21:51)
[2020-06-28] MEDS ORDERED: ACETAMINOPHEN 500 MG TABLET (FP) PO ONE (22:03)
--- NOTE | 2020-06-28 22:15 | PN ---
Progress Note, Physician Chief Complaint: WAKE,ALERT IN BED AMBULATORY REPORTS LESS FOOT SWELLING AND PAIN AFEBRILE WBC WNL WOUND C/S MIXED ORGANISMS - Current Medication List Current Medications: Active Medications Docusate Sodium (Colace -) 100 mg PO BID PRN PRN Reason: CONSTIPATION Last Admin: 06/27/20 14:40 Dose: 100 mg Documented by: Enoxaparin Sodium (Lovenox -) 40 mg SQ DAILY [facility]ER Last Admin: 06/28/20 10:04 Dose: Not Given Documented by: Piperacillin Sod/Tazobactam (Sod 3.375 gm/ Dextrose) 50 mls @ 100 mls/hr IVPB Q8H-IV [facility]ER; Protocol Last Admin: 06/28/20 17:52 Dose: 100 mls/hr Documented by: Vancomycin HCl (Vancomycin (Pre-Docked)) 1,000 mg in 250 mls @ 166.667 mls/hr I VPB Q12H [facility]; Protocol Last Admin: 06/28/20 14:09 Dose: 166.667 mls/hr Documented by: Insulin Aspart (Novolog Vial Sliding Scale -) 1 vial SQ ACHS [facility]; Protocol Last Admin: 06/28/20 21:50 Dose: 6 units Documented by: Insulin Detemir (Levemir Vial) 18 units SQ HS [facility] Last Admin: 06/28/20 21:51 Dose: 18 units Documented by: - Objective Vital Signs: Vital Signs Temperature 98.2 F 06/28/20 16:46 Pulse Rate 68 06/28/20 16:46 Respiratory Rate 20 06/28/20 16:46 Blood Pressure 99/60 06/28/20 16:46 O2 Sat by Pulse Oximetry (%) 99 06/28/20 16:46 Constitutional: Yes: No Distress Eyes: Yes: Conjunctiva Clear Cardiovascular: Yes: Regular Rate and Rhythm, S1, S2 Respiratory: Yes: CTA Bilaterally Gastrointestinal: Yes: Normal Bowel Sounds, Soft Extremities: Yes: Other (R FOOT REMAINS SWOLLEN, ERYTHEMATOUS. NO DRAINAGE FROM ULCER) Labs: CBC, BMP 06/28/20 06:57 06/28/20 06:57 Assessment/Plan INFECTED DIABETIC FOOT ULCER/ CELLULITIS/ ABSCESS/OM CONTINUE ZOSYN D/C VANCOMYCIN DEBRIDEMENT
[2020-06-29] MEDS ORDERED: PIPERACILLIN/TAZOBACTAM 3.375 GM VIAL IVPB ONE ×3 (01:45→17:28)
[2020-06-29] MEDS ORDERED: DEXTROSE 5%-WATER - 50 ML IVPB ONE ×3 (01:45→17:29)
[2020-06-29] MEDS: PIPERACILLIN/TAZOB 3.375 GM 3.375 GM in DEXTROSE 5%-WATER - 50 ML IVPB SCH ×3 (02:08→19:16)
[2020-06-29] MEDS ORDERED: MELATONIN 5 MG TABLETS PO ONE (03:00)
[2020-06-29] MEDS: INSULIN SLIDING SCALE (NOVOLOG) 1 VIAL SQ SCH ×5 (06:09→21:01)
[2020-06-29] MEDS ORDERED: PT OWN MED DRAWER 7, Y5N ONE ×2 (09:13→14:24)
[2020-06-29 09:47] LABS: BASO % 0.7 % (0-2.0); EOS % 1.4 % (0-4.5); HEMATOCRIT 36.2 % (35.4-49); HEMOGLOBIN 11.7 GM/dL (11.7-16.9); LYMPH % 21.5 % (8-40); MCH 29.3 pg (25.7-33.7); MCHC 32.3 g/dl (32.0-35.9); MEAN CELL VOLUME 90.5 fl (80-96); NEUT % 68.4 % (42.8-82.8); PLATELET COUNT 394 K/MM3 (134-434); WHITE BLOOD COUNT 7.3 K/mm3 (4.0-10.0)
[2020-06-29 10:08] LABS: ALBUMIN 2.8 g/dl (3.4-5.0); BILIRUBIN,TOTAL 0.2 mg/dL (0.2-1); BLOOD UREA NITROGEN 9.9 mg/dL (7-18); CALCIUM 8.6 mg/dL (8.5-10.1); CREATININE 0.6 mg/dL (0.55-1.3); MAGNESIUM 1.8 mg/dL (1.8-2.4); PHOSPHOROUS 3.8 mg/dL (2.5-4.9); POTASSIUM 4.1 mmol/L (3.5-5.1); TOT PROT 6.8 g/dl (6.4-8.2)
[2020-06-29] MEDS: ENOXAPARIN NA (PORCINE) 40 MG/0.4 ML DISP.SYRIN SQ SCH (10:31)
--- NOTE | 2020-06-29 14:52 | PN ---
Progress Note, Physician Chief Complaint: WAKE,ALERT IN BED REPORTS LESS FOOT SWELLING AND PAIN AFEBRILE WBC WNL WOUND C/S MIXED ORGANISMS - Current Medication List Current Medications: Active Medications Docusate Sodium (Colace -) 100 mg PO BID PRN PRN Reason: CONSTIPATION Last Admin: 06/27/20 14:40 Dose: 100 mg Documented by: Enoxaparin Sodium (Lovenox -) 40 mg SQ DAILY [facility]ER Last Admin: 06/29/20 10:31 Dose: 40 mg Documented by: Piperacillin Sod/Tazobactam (Sod 3.375 gm/ Dextrose) 50 mls @ 100 mls/hr IVPB Q8H-IV [facility]ER; Protocol Last Admin: 06/29/20 10:31 Dose: 100 mls/hr Documented by: Insulin Aspart (Novolog Vial Sliding Scale -) 1 vial SQ ACHS [facility]; Protocol Last Admin: 06/29/20 12:14 Dose: 6 units Documented by: Insulin Detemir (Levemir Vial) 18 units SQ HS [facility]ER Last Admin: 06/28/20 21:51 Dose: 18 units Documented by: Insulin Detemir (Levemir Vial) 5 units SQ AM ZANDER - Objective Vital Signs: Vital Signs Temperature 98.8 F 06/29/20 10:00 Pulse Rate 63 06/29/20 10:00 Respiratory Rate 18 06/29/20 10:00 Blood Pressure 106/68 06/29/20 10:00 O2 Sat by Pulse Oximetry (%) 97 06/29/20 10:00 Constitutional: Yes: No Distress Eyes: Yes: Conjunctiva Clear Cardiovascular: Yes: Regular Rate and Rhythm, S1, S2 Respiratory: Yes: CTA Bilaterally Gastrointestinal: Yes: Normal Bowel Sounds, Soft Extremities: Yes: Other (DECREASED FOOT SWELLING/ ERYTHEMA) Labs: CBC, BMP 06/29/20 09:00 06/29/20 09:00 Assessment/Plan INFECTED DIABETIC FOOT ULCER/ CELLULITIS/ ABSCESS/OM CONTINUE ZOSYN DEBRIDEMENT
--- NOTE | 2020-06-29 15:08 | PN ---
Physical Exam: SUBJECTIVE: Patient seen and examined at bedside, reports mild discomfort in his right foot, no acute events overnight, no fevers/chills OBJECTIVE: Vital Signs Period Temp Pulse Resp BP Sys/Javed Pulse Ox Last 24 Hr 97.5 F-98.8 F 54-68 17-20 94-106/55-68 97-99 GENERAL: AAOx3, in no acute distress HEENT: NCAT, PERRLA, EOMI, sclera anicteric, conjunctiva clear, oropharynx clear w/o exudates. MMM. NECK: Normal ROM, supple, no lymphadenopathy, JVD, or masses LUNGS: CTABL no wheezes/ rhonchi/ rales. No distress, speaks in full sentences. No increased work of breathing. HEART: RRR, normal S1 S2, no M/R/G, peripheral pulses 2+ and equal b/l ABDOMEN: Soft, non-tender, + BS. No guarding or rebound. No hepatomegaly or splenomegaly. MSK: ROM WNL, NO CVA tenderness EXTREMITIES: No peripheral edema. No clubbing or cyanosis. 2 x 2 cm deep plantar ulcer w/purulent drainage, between 4th and 5th digits of right foot. NEUROLOGICAL: CN II-XII intact. Normal speech, gait not observed, no focal sensorimotor deficits. PSYCH: Normal mood, normal affect. SKIN: Warm, Dry, normal turgor, no rashes or lesions noted Laboratory Results - last 24 hr 06/28/20 06/28/20 06/29/20 17:46 21:47 05:54 WBC RBC Hgb Hct MCV MCH MCHC RDW Plt Count MPV Absolute Neuts (auto) Neutrophils % Lymphocytes % Monocytes % Eosinophils % Basophils % Nucleated RBC % Sodium Potassium Chloride Carbon Dioxide Anion Gap BUN Creatinine Est GFR (CKD-EPI)AfAm Est GFR (CKD-EPI)NonAf POC Glucometer 361 256 111 Random Glucose Calcium Phosphorus Magnesium Total Bilirubin AST ALT Alkaline Phosphatase Total Protein Albumin 06/29/20 06/29/20 06/29/20 09:00 09:00 12:06 WBC 7.3 RBC 4.00 Hgb 11.7 Hct 36.2 MCV 90.5 MCH 29.3 MCHC 32.3 RDW 14.0 Plt Count 394 MPV 8.0 Absolute Neuts (auto) 5.0 Neutrophils % 68.4 Lymphocytes % 21.5 Monocytes % 8.0 Eosinophils % 1.4 Basophils % 0.7 Nucleated RBC % 0 Sodium 137 Potassium 4.1 Chloride 103 Carbon Dioxide 29 Anion Gap 5 L BUN 9.9 Creatinine 0.6 Est GFR (CKD-EPI)AfAm 133.04 Est GFR (CKD-EPI)NonAf 114.79 POC Glucometer 257 Random Glucose 229 H Calcium 8.6 Phosphorus 3.8 Magnesium 1.8 Total Bilirubin 0.2 AST 13 L ALT 12 L Alkaline Phosphatase 49 Total Protein 6.8 Albumin 2.8 L Active Medications Generic Name Dose Route Start Last Admin Trade Name Freq PRN Reason Stop Dose Admin Docusate Sodium 100 mg 06/27/20 05:58 06/27/20 14:40 Colace - PO 100 mg BID PRN Administration CONSTIPATION Enoxaparin Sodium 40 mg 06/25/20 10:00 06/29/20 10:31 Lovenox - SQ 40 mg DAILY ZANDER Administration Piperacillin Sod/Tazobactam 50 mls @ 100 mls/hr 06/26/20 18:00 06/29/20 10:31 Sod 3.375 gm/ Dextrose IVPB 100 mls/hr Q8H-IV ZANDER Administration Protocol Insulin Aspart 1 vial 06/25/20 00:43 06/29/20 12:14 Novolog Vial Sliding Scale - SQ 6 units ACHS ZANDER Administration Protocol Insulin Detemir 18 units 06/27/20 05:57 06/28/20 21:51 Levemir Vial SQ 18 units HS ZANDER Administration Insulin Detemir 5 units 06/30/20 07:00 Levemir Vial SQ AM ZANDER Imaging: CT RLE: diffuse soft tissue swelling with more focal area of soft tissue thickening and edema involving the fourth and fifth digits, plantar ulcer at lateral aspect of the foot with an approx 3.9 x 4.4 x 2.3 cm abscess centered around the fourth distal metatarsal and proximal phalanx. No bone changes to suggest osteomyelitis MRI LE: Extensive soft tissue swelling dorsal to the foot predominantly above the distal aspect of the fourth metatarsal bone with multiloculated fluid collection 2.3 cm in diameter at best related on sagittal T2 image #8 compatible with subcutaneous abscess collection. Also noted extensive bone marrow edema predominantly mid and distal aspect of the fourth metatarsal bone compatible with osteomyelitis. Also noted minimal bone marrow edema of the proximal phalanx of the fourth digit which may related to osteomyelitis or to secondary reactive hyperemia. ASSESSMENT/PLAN: 55 yo M with PMHx of poorly-controlled T2DM on insulin, diabetic neuropathy, remote hx of tobacco and alcohol use who presents with a painful draining R foot ulcers, admitted for sepsis 2/2 to infected diabetic foot ulcer. #Sepsis 2/2 to infected diabetic foot ulcer #Osteomyelitis of RLE - Hx of poorly controlled DM, non compliance due to insurance issues. - In ER: T 100.7F, WBC 11.1, glucose 252, ESR 74, and CRP 6.6. - CT LE: Plantar ulcer with evidence of abscess - MRI LE: Fourth metatarsal bone with osteomyelitis - Afebril and hemodynamically stable - Wound culture: prelim: Group D strep or Entero Coccus, Beta Hemolytic Strep group c - Vascular consulted, Dr. posey, cleared for podiatry intervention - podiatry consulted, recs appreciated Will evaluate over weekend, if no improvement will schedule for surgery on Thursday or Thursday - discontinued vanc, per ID - Continue with zosyn, on D4 # poorly-controlled DM - Ua 3+ glucose, HbA1c 13 - BGMs ACHS ISS - Levemir 18 units sq HS - Social work consulted FEN - No standing fluids - Continue to monitor electrolytes - diabetic diet PPX - DVT: lovenox Dispo: Continue to monitor in [place] Visit type - Emergency Visit Emergency Visit: Yes ED Registration Date: 06/24/20 Care time: The patient presented to the Emergency Department on the above date and was hospitalized for further evaluation of their emergent condition. - New Patient This patient is new to me today: No - Critical Care Critical Care patient: No - Discharge Referral Referred to [facility] Med P.C.: No ATTENDING PHYSICIAN STATEMENT I saw and evaluated the patient. I reviewed the resident's note and discussed the case with the resident. I agree with the resident's findings and plan as documented. SUBJECTIVE: OBJECTIVE: ASSESSMENT AND PLAN:
--- NOTE | 2020-06-29 15:16 | CONSULT ---
Consult Consult Specialty:: Endocrine Referred by:: Dr.Youseph De Leon Reason for Consultation:: Uncontrolled DMT2 - History of Present Illness Chief Complaint: High sugar and foot infection History of Present Illness: 55ymale dmt2,has admitted with high blood sugars pain and swelling in rt foot has not been able to use insulin since he has not had insurance coverage,admits to diet problem control not checking blood sugars or medical care has been reasons for his foot infection.His family history dm t2 - Past Medical History Cardio/Vascular: Yes: HTN, Hyperlipdemia Gastrointestinal: Yes: Diverticulosis, Gastritis, GERD, Hiatal Hernia (resolved on 2016 EGD), Pancreatitis (chronic calcific alcoholic panceatitis), Other (left colon adenoma removed 12/05) Infectious Disease: Yes: Other (right foot plantar infection) Endocrine: Yes: Diabetes Mellitus (with diabetic neuropathy, right Charcot's foot ?) - Past Surgical History Past Surgical History: Yes: Cholecystectomy - Alcohol/Substance Use Hx Alcohol Use: Yes (recovering alcoholic since 2015) History of Substance Use: reports: None - Smoking History Smoking history: Never smoked Have you smoked in the past 12 months: No Aproximately how many cigarettes per day: 10 If you are a former smoker, when did you quit?: 2010 - Social History Usual Living Arrangement: With Spouse ADL: Independent Occupation: [employer] employee History of Recent Travel: No Home Medications - Allergies Allergies/Adverse Reactions: Allergies Allergy/AdvReac Type Severity Reaction Status Date / Time No Known Allergies Allergy Verified 06/24/20 16:54 - Home Medications Home Medications: Ambulatory Orders Docusate Sodium [Colace -] 100 mg PO DAILY #30 capsule 09/09/19 Insulin (Levemir) [Levemir Vial] 10 units SQ DAILY 30 Days #1 units 09/09/19 Pantoprazole Sodium [Protonix] 40 mg PO DAILY #30 tablet. 09/09/19 metFORMIN HCL [Glucophage -] 500 mg PO DAILY@0700 #30 tablet 09/09/19 Amoxicillin/Potassium Clav [Augmentin 875-125 Tablet] 1 each PO BID #14 tablet 09/13/19 Lancets/Blood Glucose Strips [Fora [id number] Strp-Lnct] 1 each MC DAILY #1 combo..pkg 09/13/19 Miscellaneous Medical Supply [Glucometer Test Strips #100] 1 each TD ASDIR #1 box 09/13/19 Family Medical History Family Hx Congestive Heart Failure: Father ( 72) Family Hx Diabetes: Brother Review of Systems - Review of Systems Constitutional: reports: Lethargy Eyes: reports: Blurred Vision HENT: reports: No Symptoms Neck: reports: No Symptoms Cardiovascular: reports: No Symptoms Gastrointestinal: reports: No Symptoms Genitourinary: reports: No Symptoms Breasts: reports: No Symptoms Reported Neurological: reports: Numbness, Weakness Endocrine: reports: No Symptoms Hematology/Lymphatic: reports: No Symptoms Physical Exam Vital Signs: Vital Signs Temperature 98.8 F 06/29/20 10:00 Pulse Rate 63 06/29/20 10:00 Respiratory Rate 18 06/29/20 10:00 Blood Pressure 106/68 06/29/20 10:00 O2 Sat by Pulse Oximetry (%) 97 06/29/20 10:00 Constitutional: Yes: Calm Eyes: Yes: EOM Intact HENT: Yes: Normocephalic Neck: Yes: WNL Labs: CBC, BMP 06/29/20 09:00 06/29/20 09:00 Problem List - Problems (1) Diabetic foot ulcer Code(s): E11.621 - TYPE 2 DIABETES MELLITUS WITH FOOT ULCER; L97.509 - NON- PRESSURE CHRONIC ULCER OTH PRT UNSP FOOT W UNSP SEVERITY Qualifiers: Diabetic foot ulcer location: other Diabetes mellitus type: type 1 Laterality: right Non-pressure ulcer stage: unspecified non-pressure ulcer stage Qualified Code(s): E10.621 - Type 1 diabetes mellitus with foot ulcer; L97.519 - Non-pressure chronic ulcer of other part of right foot with unspecified severity (2) Abdominal pain Code(s): R10.9 - UNSPECIFIED ABDOMINAL PAIN Qualifiers: Abdominal location: upper abdomen, unspecified Qualified Code(s): R10.10 - Upper abdominal pain, unspecified (3) Chronic calcific pancreatitis Code(s): K86.1 - OTHER CHRONIC PANCREATITIS (4) Colon adenomas Code(s): D12.6 - BENIGN NEOPLASM OF COLON, UNSPECIFIED (5) Diabetic neuropathy Code(s): E11.40 - TYPE 2 DIABETES MELLITUS WITH DIABETIC NEUROPATHY, UNSP (6) Diverticulosis Code(s): K57.90 - DVRTCLOS OF INTEST, PART UNSP, W/O PERF OR ABSCESS W/O BLEED (7) Gastritis Code(s): K29.70 - GASTRITIS, UNSPECIFIED, WITHOUT BLEEDING Assessment/Plan Current Active Problems Uncontrolled dm diabetic neuropathy Diabetic foot ulcer (Acute) Abnormal Lab Results 06/29/20 09:00 Anion Gap 5 L Random Glucose 229 H AST 13 L ALT 12 L Albumin 2.8 L Laboratory Results - last 24 hr 06/28/20 06/28/20 06/29/20 17:46 21:47 05:54 WBC RBC Hgb Hct MCV MCH MCHC RDW Plt Count MPV Absolute Neuts (auto) Neutrophils % Lymphocytes % Monocytes % Eosinophils % Basophils % Nucleated RBC % Sodium Potassium Chloride Carbon Dioxide Anion Gap BUN Creatinine Est GFR (CKD-EPI)AfAm Est GFR (CKD-EPI)NonAf POC Glucometer 361 256 111 Random Glucose Calcium Phosphorus Magnesium Total Bilirubin AST ALT Alkaline Phosphatase Total Protein Albumin 06/29/20 06/29/20 06/29/20 09:00 09:00 12:06 WBC 7.3 RBC 4.00 Hgb 11.7 Hct 36.2 MCV 90.5 MCH 29.3 MCHC 32.3 RDW 14.0 Plt Count 394 MPV 8.0 Absolute Neuts (auto) 5.0 Neutrophils % 68.4 Lymphocytes % 21.5 Monocytes % 8.0 Eosinophils % 1.4 Basophils % 0.7 Nucleated RBC % 0 Sodium 137 Potassium 4.1 Chloride 103 Carbon Dioxide 29 Anion Gap 5 L BUN 9.9 Creatinine 0.6 Est GFR (CKD-EPI)AfAm 133.04 Est GFR (CKD-EPI)NonAf 114.79 POC Glucometer 257 Random Glucose 229 H Calcium 8.6 Phosphorus 3.8 Magnesium 1.8 Total Bilirubin 0.2 AST 13 L ALT 12 L Alkaline Phosphatase 49 Total Protein 6.8 Albumin 2.8 L plan: bgm achs novolog scale\ dose am levemir 30units am levemir 10 units hs if sugar above 150mg/dl diet metformin 500mg bid follow as outpatient
--- NOTE | 2020-06-29 16:33 | PN ---
Teaching Attending Note Name of Resident: Karri Cruz ATTENDING PHYSICIAN STATEMENT I saw and evaluated the patient. I reviewed the resident's note and discussed the case with the resident. I agree with the resident's findings and plan as documented. SUBJECTIVE: Ongoing R foot discomfort and edema. No further fevers. OBJECTIVE: Afebrile, Hemodynamically stable. Last Vital Signs Temp Pulse Resp BP Pulse Ox 98.6 F 77 18 106/73 99 06/29/20 15:00 06/29/20 15:00 06/29/20 15:00 06/29/20 15:00 06/29/20 15:00 Heart - S1, S2, RRR Lungs - clear to auscultation Abdomen - Soft, non-tender. Bowel Sounds normal. Extremities - R foot large ulcerated lesion on plantar aspect with pustular exudate and surrounding erythema/tenderness - dressed. RLE edema+ Laboratory Results - last 24 hr 06/28/20 06/28/20 06/29/20 17:46 21:47 05:54 WBC RBC Hgb Hct MCV MCH MCHC RDW Plt Count MPV Absolute Neuts (auto) Neutrophils % Lymphocytes % Monocytes % Eosinophils % Basophils % Nucleated RBC % Sodium Potassium Chloride Carbon Dioxide Anion Gap BUN Creatinine Est GFR (CKD-EPI)AfAm Est GFR (CKD-EPI)NonAf POC Glucometer 361 256 111 Random Glucose Calcium Phosphorus Magnesium Total Bilirubin AST ALT Alkaline Phosphatase Total Protein Albumin 06/29/20 06/29/20 06/29/20 09:00 09:00 12:06 WBC 7.3 RBC 4.00 Hgb 11.7 Hct 36.2 MCV 90.5 MCH 29.3 MCHC 32.3 RDW 14.0 Plt Count 394 MPV 8.0 Absolute Neuts (auto) 5.0 Neutrophils % 68.4 Lymphocytes % 21.5 Monocytes % 8.0 Eosinophils % 1.4 Basophils % 0.7 Nucleated RBC % 0 Sodium 137 Potassium 4.1 Chloride 103 Carbon Dioxide 29 Anion Gap 5 L BUN 9.9 Creatinine 0.6 Est GFR (CKD-EPI)AfAm 133.04 Est GFR (CKD-EPI)NonAf 114.79 POC Glucometer 257 Random Glucose 229 H Calcium 8.6 Phosphorus 3.8 Magnesium 1.8 Total Bilirubin 0.2 AST 13 L ALT 12 L Alkaline Phosphatase 49 Total Protein 6.8 Albumin 2.8 L Current Medications Generic Name Dose Route Start Last Admin Trade Name Freq PRN Reason Stop Dose Admin Docusate Sodium 100 mg 06/27/20 05:58 06/27/20 14:40 Colace - PO 100 mg BID PRN Administration CONSTIPATION Enoxaparin Sodium 40 mg 06/25/20 10:00 06/29/20 10:31 Lovenox - SQ 40 mg DAILY ZANDER Administration Piperacillin Sod/Tazobactam 50 mls @ 100 mls/hr 06/26/20 18:00 06/29/20 10:31 Sod 3.375 gm/ Dextrose IVPB 100 mls/hr Q8H-IV ZANDER Administration Protocol Insulin Aspart 1 vial 06/25/20 00:43 06/29/20 12:14 Novolog Vial Sliding Scale - SQ 6 units ACHS ZANDER Administration Protocol Insulin Detemir 18 units 06/27/20 05:57 06/28/20 21:51 Levemir Vial SQ 18 units HS ZANDER Administration Insulin Detemir 5 units 06/30/20 07:00 Levemir Vial SQ AM [facility] Home Medications Medication Instructions Recorded Docusate Sodium [Colace -] 100 mg PO DAILY #30 capsule 09/09/19 Insulin (Levemir) [Levemir Vial] 10 units SQ DAILY 30 Days #1 units 09/09/19 Pantoprazole Sodium [Protonix] 40 mg PO DAILY #30 tablet. 09/09/19 metFORMIN HCL [Glucophage -] 500 mg PO DAILY@0700 #30 tablet 09/09/19 Amoxicillin/Potassium Clav 1 each PO BID #14 tablet 09/13/19 [Augmentin 875-125 Tablet] Lancets/Blood Glucose Strips [Fora 1 each MC DAILY #1 combo..pkg 09/13/19 [id number] Strp-Lnct] Miscellaneous Medical Supply 1 each TD ASDIR #1 box 09/13/19 [Glucometer Test Strips #100] ASSESSMENT AND PLAN: 55 year old male with history of DM 2, GERD, admitted for fever, right foot pain/swelling/tenderness 1. Sepsis secondary to Diabetic Foot ulcer/abscess/Osteomyelitis Fever/Leukocytosis resolved. CT RLE - plantar ulcer with abscess MRI RLE - consistent with OM 4th MT and 4th digit with associated collection. Wound Cx - Beta-hemolytic Strep, Strep veridans, coag neg Staph Continue IV Zosyn ID/Podiatry following. ID recommends possible debridement next week. Cleared for Podiatry surgery by Vascular surgery. Podiatry now postponed surgical intervention until next week after IV Abx throughout the weekend. 2. DM 2 - Uncontrolled, A1C 13.4. Patient non-complaint with home diabetic regimen. Maintain on Levemir and Novolog sliding scale. Endocrinology consulted for guidance regarding optimization of DM 2 regimen. DVT Px - Lovenox SQ
[2020-06-30] MEDS ORDERED: DEXTROSE 5%-WATER - 50 ML IVPB ONE ×3 (01:40→17:16)
[2020-06-30] MEDS ORDERED: PIPERACILLIN/TAZOBACTAM 3.375 GM VIAL IVPB ONE ×3 (01:40→17:15)
[2020-06-30] MEDS: PIPERACILLIN/TAZOB 3.375 GM 3.375 GM in DEXTROSE 5%-WATER - 50 ML IVPB SCH ×3 (01:43→17:19)
[2020-06-30] MEDS: INSULIN SLIDING SCALE (NOVOLOG) 1 VIAL SQ SCH ×4 (06:43→21:08)
[2020-06-30] MEDS: metFORMIN HCL 500 MG TABLET (FP) PO SCH ×2 (06:43→17:19)
[2020-06-30] MEDS: INSULIN (LEVEMIR) 100 UNITS/ML UNITS SQ SCH (06:44)
[2020-06-30] MEDS ORDERED: INSULIN (LEVEMIR) 100 UNITS/ML UNITS SQ SCH (07:00)
--- NOTE | 2020-06-30 07:44 | PN ---
Physical Exam: SUBJECTIVE: Patient seen and examined at bedside. OBJECTIVE: Vital Signs Period Temp Pulse Resp BP Sys/Javed Pulse Ox Last 24 Hr 97.9 F-98.8 F 62-77 18-20 106-115/60-77 97-99 GENERAL: The patient is awake, alert, and fully oriented, in no acute distress. HEAD: Normal with no signs of trauma. NECK: Trachea midline, full range of motion, supple. LUNGS: Breath sounds equal, clear to auscultation bilaterally, no wheezes, no crackles, no accessory muscle use. HEART: Regular rate and rhythm, S1, S2 ABDOMEN: Soft, nontender, nondistended, normoactive bowel sounds, no guarding EXTREMITIES: 2+ pulses, warm, well-perfused, no edema. SKIN: Warm, dry, normal turgor, no rashes or lesions noted Laboratory Results - last 24 hr Active Medications Generic Name Dose Route Start Last Admin Trade Name Freq PRN Reason Stop Dose Admin Docusate Sodium 100 mg 06/27/20 05:58 06/27/20 14:40 Colace - PO 100 mg BID PRN Administration CONSTIPATION Enoxaparin Sodium 40 mg 06/25/20 10:00 06/29/20 10:31 Lovenox - SQ 40 mg DAILY ZANDER Administration Piperacillin Sod/Tazobactam 50 mls @ 100 mls/hr 06/26/20 18:00 06/30/20 01:43 Sod 3.375 gm/ Dextrose IVPB 100 mls/hr Q8H-IV ZANDER Administration Protocol Insulin Aspart 1 vial 06/25/20 00:43 06/30/20 06:43 Novolog Vial Sliding Scale - SQ 6 units ACHS ZANDER Administration Protocol Insulin Detemir 30 units 06/30/20 07:00 06/30/20 06:44 Levemir Vial SQ 30 units AM ZANDER Administration Metformin HCl 500 mg 06/30/20 07:00 06/30/20 06:43 Glucophage - PO 500 mg BID@0700,[address] RLE: diffuse soft tissue swelling with more focal area of soft tissue thickening and edema involving the fourth and fifth digits, plantar ulcer at lateral aspect of the foot with an approx 3.9 x 4.4 x 2.3 cm abscess centered around the fourth distal metatarsal and proximal phalanx. No bone changes to suggest osteomyelitis MRI LE: Extensive soft tissue swelling dorsal to the foot predominantly above the distal aspect of the fourth metatarsal bone with multiloculated fluid collection 2.3 cm in diameter at best related on sagittal T2 image #8 compatible with subcutaneous abscess collection. Also noted extensive bone marrow edema predominantly mid and distal aspect of the fourth metatarsal bone compatible with osteomyelitis. Also noted minimal bone marrow edema of the proximal phalanx of the fourth digit which may related to osteomyelitis or to secondary reactive hyperemia. ASSESSMENT/PLAN: 55 yo M with PMHx of poorly-controlled T2DM on insulin, diabetic neuropathy, remote hx of tobacco and alcohol use who presents with a painful draining R foot ulcers, admitted for sepsis 2/2 to infected diabetic foot ulcer. Sepsis 2/2 to Osteomyelitis of RLE - leukocytosis resolving, afebrile -imaging noted above - Wound culture appreciated - c/w zosyn d 5 as per ID - Vascular consulted, Dr. posey . recs appreciated - podiatry consulted, recs appreciated. Will evaluate over weekend, if no improvement will schedule for surgery on Thursday or Thursday DM - HbA1c 13 - levemir 30 AM, Levemir 10 HS if BGM > 150. - metformin 500 bid - endocrine recs appreciated PPX - DVT: lovenox Dispo: Continue to monitor in [place] ATTENDING PHYSICIAN STATEMENT I saw and evaluated the patient. I reviewed the resident's note and discussed the case with the resident. I agree with the resident's findings and plan as documented. SUBJECTIVE: OBJECTIVE: ASSESSMENT AND PLAN:
[2020-06-30 08:31] LABS: BASO % 0.9 % (0-2.0); EOS % 2.2 % (0-4.5); HEMATOCRIT 35.1 % (35.4-49); HEMOGLOBIN 11.5 GM/dL (11.7-16.9); LYMPH % 25.4 % (8-40); MCH 29.6 pg (25.7-33.7); MCHC 32.6 g/dl (32.0-35.9); MEAN CELL VOLUME 90.7 fl (80-96); MEAN PLT VOLUME 8.3 fl (7.5-11.1); MONO % 8.1 % (3.8-10.2); NEUT % 63.4 % (42.8-82.8); PLATELET COUNT 367 K/MM3 (134-434); RBC 3.87 M/mm3 (4.00-5.60); WHITE BLOOD COUNT 6.4 K/mm3 (4.0-10.0)
[2020-06-30 08:58] LABS: ALBUMIN 2.6 g/dl (3.4-5.0); BILIRUBIN,TOTAL 0.2 mg/dL (0.2-1); CALCIUM 8.3 mg/dL (8.5-10.1); CREATININE 0.6 mg/dL (0.55-1.3); MAGNESIUM 1.8 mg/dL (1.8-2.4); PHOSPHOROUS 3.2 mg/dL (2.5-4.9); POTASSIUM 4.9 mmol/L (3.5-5.1); TOT PROT 6.4 g/dl (6.4-8.2)
[2020-06-30] MEDS: ENOXAPARIN NA (PORCINE) 40 MG/0.4 ML DISP.SYRIN SQ SCH (09:22)
--- NOTE | 2020-06-30 10:08 | PN ---
Progress Note (short form) - Note Progress Note: Went to room-+om, +cellulitis, right foot grade 3 wound right om cellulits abcess? Patient cleared for intervention if necessary Continue IVABX No improvement seen Discuus with Dr Guerra i see no improvent Betadine with dsd applied Change every day Mri report and xrays have been reviewed Dr Guerra to follow
--- NOTE | 2020-06-30 15:57 | PN ---
Teaching Attending Note Name of Resident: Ruth Rios ATTENDING PHYSICIAN STATEMENT I saw and evaluated the patient. I reviewed the resident's note and discussed the case with the resident. I agree with the resident's findings and plan as documented. SUBJECTIVE: Ongoing R foot discomfort and edema. No further fevers. OBJECTIVE: Afebrile, Hemodynamically stable. Last Vital Signs Temp Pulse Resp BP Pulse Ox 98.6 F 83 20 103/74 98 06/30/20 14:00 06/30/20 14:00 06/30/20 14:00 06/30/20 14:00 06/30/20 14:00 Heart - S1, S2, RRR Lungs - clear to auscultation Abdomen - Soft, non-tender. Bowel Sounds normal. Extremities - R foot large ulcerated lesion on plantar aspect with pustular exu date and surrounding erythema/tenderness - dressed. RLE edema+ Laboratory Results - last 24 hr 06/29/20 06/29/20 06/30/20 17:01 20:59 06:42 WBC RBC Hgb Hct MCV MCH MCHC RDW Plt Count MPV Absolute Neuts (auto) Neutrophils % Lymphocytes % Monocytes % Eosinophils % Basophils % Nucleated RBC % Sodium Potassium Chloride Carbon Dioxide Anion Gap BUN Creatinine Est GFR (CKD-EPI)AfAm Est GFR (CKD-EPI)NonAf POC Glucometer 300 312 278 Random Glucose Calcium Phosphorus Magnesium Total Bilirubin AST ALT Alkaline Phosphatase Total Protein Albumin 06/30/20 06/30/20 06/30/20 07:02 07:02 11:40 WBC 6.4 RBC 3.87 L Hgb 11.5 L Hct 35.1 L MCV 90.7 MCH 29.6 MCHC 32.6 RDW 14.0 Plt Count 367 MPV 8.3 Absolute Neuts (auto) 4.1 Neutrophils % 63.4 Lymphocytes % 25.4 Monocytes % 8.1 Eosinophils % 2.2 Basophils % 0.9 Nucleated RBC % 0 Sodium 137 Potassium 4.9 Chloride 103 Carbon Dioxide 29 Anion Gap 5 L BUN 14.0 Creatinine 0.6 Est GFR (CKD-EPI)AfAm 133.04 Est GFR (CKD-EPI)NonAf 114.79 POC Glucometer 363 Random Glucose 272 H Calcium 8.3 L Phosphorus 3.2 Magnesium 1.8 Total Bilirubin 0.2 AST 18 ALT 15 Alkaline Phosphatase 47 Total Protein 6.4 Albumin 2.6 L Current Medications Generic Name Dose Route Start Last Admin Trade Name Feltonq PRN Reason Stop Dose Admin Clotrimazole 1 applic 06/30/20 22:00 Lotrimin 1% Cream - TP BID [facility] Docusate Sodium 100 mg 06/27/20 05:58 06/27/20 14:40 Colace - PO 100 mg BID PRN Administration CONSTIPATION Enoxaparin Sodium 40 mg 06/25/20 10:00 06/30/20 09:22 Lovenox - SQ 40 mg DAILY ZANDER Administration Piperacillin Sod/Tazobactam 50 mls @ 100 mls/hr 06/26/20 18:00 06/30/20 09:21 Sod 3.375 gm/ Dextrose IVPB 100 mls/hr Q8H-IV ZANDER Administration Protocol Insulin Aspart 1 vial 06/25/20 00:43 06/30/20 11:55 Novolog Vial Sliding Scale - SQ 10 units ACHS ZANDER Administration Protocol Insulin Detemir 30 units 06/30/20 07:00 06/30/20 06:44 Levemir Vial SQ 30 units AM ZANDER Administration Metformin HCl 500 mg 06/30/20 07:00 06/30/20 06:43 Glucophage - PO 500 mg BID@0700,1630 ZANDER Administration Home Medications Medication Instructions Recorded Docusate Sodium [Colace -] 100 mg PO DAILY #30 capsule 09/09/19 Insulin (Levemir) [Levemir Vial] 10 units SQ DAILY 30 Days #1 units 09/09/19 Pantoprazole Sodium [Protonix] 40 mg PO DAILY #30 tablet. 09/09/19 metFORMIN HCL [Glucophage -] 500 mg PO DAILY@0700 #30 tablet 09/09/19 Amoxicillin/Potassium Clav 1 each PO BID #14 tablet 09/13/19 [Augmentin 875-125 Tablet] Lancets/Blood Glucose Strips [Fora 1 each MC DAILY #1 combo..pkg 09/13/19 [id number] Strp-Lnct] Miscellaneous Medical Supply 1 each TD ASDIR #1 box 09/13/19 [Glucometer Test Strips #100] ASSESSMENT AND PLAN: 55 year old male with history of DM 2, GERD, admitted for fever, right foot pain/swelling/tenderness 1. Sepsis secondary to Diabetic Foot ulcer/abscess/Osteomyelitis Fever/Leukocytosis resolved. CT RLE - plantar ulcer with abscess MRI RLE - consistent with OM 4th MT and 4th digit with associated collection. Wound Cx - Beta-hemolytic Strep, Strep veridans, coag neg Staph Continue IV Zosyn ID/Podiatry following. For possible debridement next week. Cleared for Podiatry surgery by Vascular surgery. Podiatry now postponed surgical intervention until next week after IV Abx throughout the weekend. 2. DM 2 - Uncontrolled, A1C 13.4. Patient non-complaint with home diabetic regimen. Maintain on Levemir and Novolog sliding scale. Endocrinology consulted for guidance regarding optimization of DM 2 regimen - started on Metformin and Levemir 30 in AM. DVT Px - Lovenox SQ
[2020-06-30] MEDS: CLOTRIMAZOLE 1% CREAM 15 GM TUBE TP SCH (21:04)
[2020-07-01] MEDS ORDERED: PIPERACILLIN/TAZOBACTAM 3.375 GM VIAL IVPB ONE ×3 (01:36→17:30)
[2020-07-01] MEDS ORDERED: DEXTROSE 5%-WATER - 50 ML IVPB ONE ×3 (01:36→17:30)
[2020-07-01] MEDS: PIPERACILLIN/TAZOB 3.375 GM 3.375 GM in DEXTROSE 5%-WATER - 50 ML IVPB SCH ×3 (01:58→17:35)
[2020-07-01] MEDS: INSULIN (LEVEMIR) 100 UNITS/ML UNITS SQ SCH (06:09)
[2020-07-01] MEDS: metFORMIN HCL 500 MG TABLET (FP) PO SCH (06:09)
[2020-07-01] MEDS: INSULIN SLIDING SCALE (NOVOLOG) 1 VIAL SQ SCH ×4 (06:10→21:45)
[2020-07-01] MEDS: CLOTRIMAZOLE 1% CREAM 15 GM TUBE TP SCH ×2 (09:30→21:45)
[2020-07-01] MEDS: ENOXAPARIN NA (PORCINE) 40 MG/0.4 ML DISP.SYRIN SQ SCH (09:30)
--- NOTE | 2020-07-01 10:21 | PN ---
Progress Note, Physician History of Present Illness: Abscess cellulitis OM right foot - Current Medication List Current Medications: Active Medications Clotrimazole (Lotrimin 1% Cream -) 1 applic TP BID [facility] Last Admin: 07/01/20 09:30 Dose: 1 applic Documented by: Docusate Sodium (Colace -) 100 mg PO BID PRN PRN Reason: CONSTIPATION Last Admin: 06/27/20 14:40 Dose: 100 mg Documented by: Enoxaparin Sodium (Lovenox -) 40 mg SQ DAILY [facility] Last Admin: 07/01/20 09:30 Dose: 40 mg Documented by: Piperacillin Sod/Tazobactam (Sod 3.375 gm/ Dextrose) 50 mls @ 100 mls/hr IVPB Q8H-IV [facility]; Protocol Last Admin: 07/01/20 09:30 Dose: 100 mls/hr Documented by: Insulin Aspart (Novolog Vial Sliding Scale -) 1 vial SQ ACHS [facility]; Protocol Last Admin: 07/01/20 06:10 Dose: 6 units Documented by: Insulin Detemir (Levemir Vial) 30 units SQ AM [facility] Last Admin: 07/01/20 06:09 Dose: 30 units Documented by: Metformin HCl (Glucophage -) 500 mg PO BID@0700,1630 [facility] Last Admin: 07/01/20 06:09 Dose: 500 mg Documented by: - Objective Vital Signs: Vital Signs Temperature 98.1 F 07/01/20 06:38 Pulse Rate 62 07/01/20 06:38 Respiratory Rate 20 07/01/20 06:38 Blood Pressure 108/70 07/01/20 06:38 O2 Sat by Pulse Oximetry (%) 98 07/01/20 06:38 Wound/Incision: Yes: Other (+grade 3 ulceration lateral 4th toe right, +grade 3 wound submet 4 right, +om, +demarcated wound area to forefoot of right fooot distal lateral aspect,) Labs: CBC, BMP 06/30/20 07:02 06/30/20 07:02 Assessment/Plan om abscess cellulitis Pt has been consented for OR procedure. Witnessed by nursing. Incision and drainage right foot with possible amputation toes 4&5 right. Possible metatarsal resection and or metatarsal head resection 4th and 5th. Pt fully understands all risks benefits and alternatives. Shanaex DC for today. NPO. Will try to get on schedule for tomorrow am if not possible will do Thursday m iftikharing. Betadine dressing right foot. Vascular cleared for intervention. INR and Type and screen ordered. Please clear and optimize medically for OR.
[2020-07-01 12:25] LABS: INR 1.03 (0.83-1.09); PROTHROMBIN TIME (PATIENT) 12.1 SEC (9.7-13.0)
--- NOTE | 2020-07-01 13:35 | PN ---
Progress Note (short form) - Note Progress Note: SUBJECTIVE: Ongoing RLE discomfort and edema. No further fevers. OBJECTIVE: Afebrile, Hemodynamically stable. Last Vital Signs Temp Pulse Resp BP Pulse Ox 98.1 F 62 20 108/70 98 07/01/20 06:38 07/01/20 06:38 07/01/20 09:00 07/01/20 06:38 07/01/20 09:00 Heart - S1, S2, RRR Lungs - clear to auscultation Abdomen - Soft, non-tender. Bowel Sounds normal. Extremities - R foot large ulcerated lesion on plantar aspect with pustular exudate and surrounding erythema/tenderness - dressed. RLE edema+ Laboratory Results - last 24 hr 06/30/20 06/30/20 07/01/20 17:14 21:06 06:05 PT with INR INR POC Glucometer 283 337 260 Blood Type Antibody Screen 07/01/20 07/01/20 07/01/20 11:35 11:35 12:01 PT with INR 12.10 INR 1.03 POC Glucometer 209 Blood Type A POSITIVE Antibody Screen Negative Current Medications Generic Name Dose Route Start Last Admin Trade Name Freq PRN Reason Stop Dose Admin Clotrimazole 1 applic 06/30/20 22:00 07/01/20 09:30 Lotrimin 1% Cream - TP 1 applic BID [facility] Administration Docusate Sodium 100 mg 06/27/20 05:58 06/27/20 14:40 Colace - PO 100 mg BID PRN Administration CONSTIPATION Piperacillin Sod/Tazobactam 50 mls @ 100 mls/hr 06/26/20 18:00 07/01/20 09:30 Sod 3.375 gm/ Dextrose IVPB 100 mls/hr Q8H-IV [facility] Administration Protocol Insulin Aspart 1 vial 06/25/20 00:43 07/01/20 12:29 Novolog Vial Sliding Scale - SQ 4 units ACHS [facility] Administration Protocol Insulin Detemir 30 units 06/30/20 07:00 07/01/20 06:09 Levemir Vial SQ 30 units AM [facility] Administration Metformin HCl 500 mg 06/30/20 07:00 07/01/20 06:09 Glucophage - PO 500 mg BID@0700,1630 [facility] Administration Home Medications Medication Instructions Recorded Docusate Sodium [Colace -] 100 mg PO DAILY #30 capsule 09/09/19 Insulin (Levemir) [Levemir Vial] 10 units SQ DAILY 30 Days #1 units 09/09/19 Pantoprazole Sodium [Protonix] 40 mg PO DAILY #30 tablet. 09/09/19 metFORMIN HCL [Glucophage -] 500 mg PO DAILY@0700 #30 tablet 09/09/19 Amoxicillin/Potassium Clav 1 each PO BID #14 tablet 09/13/19 [Augmentin 875-125 Tablet] Lancets/Blood Glucose Strips [Fora 1 each MC DAILY #1 combo..pkg 09/13/19 [id number] Strp-Lnct] Miscellaneous Medical Supply 1 each TD ASDIR #1 box 09/13/19 [Glucometer Test Strips #100] ASSESSMENT AND PLAN: 55 year old male with history of DM 2, GERD, admitted for fever, right foot pain/swelling/tenderness 1. Sepsis secondary to Diabetic Foot ulcer/abscess/Osteomyelitis Fever/Leukocytosis resolved. CT RLE - plantar ulcer with abscess MRI RLE - consistent with OM 4th MT and 4th digit with associated collection. Wound Cx - Beta-hemolytic Strep, Strep veridans, coag neg Staph ID/Podiatry following Continue IV Zosyn Podiatry will schedule for OR Thursday or Thursday for incision and drainage right foot with possible amputation toes 4&5 right, possible metatarsal resection and or metatarsal head resection 4th and 5th. Cleared for Podiatry surgery by Vascular surgery. Medically optimized for proposed procedure. 2. DM 2 - Uncontrolled, A1C 13.4. Patient non-complaint with home diabetic regimen. Maintain on Levemir and Novolog sliding scale. Endocrinology consulted for guidance regarding optimization of DM 2 regimen - started on Metformin and Levemir 30 in AM. Will hold Metformin rocio-operatively. DVT Px - Lovenox SQ held prior to Surgical intervention by Podiatry. Visit type - Emergency Visit Emergency Visit: Yes ED Registration Date: 06/24/20 Care time: The patient presented to the Emergency Department on the above date and was hospitalized for further evaluation of their emergent condition. - New Patient This patient is new to me today: No - Critical Care Critical Care patient: No - Discharge Referral Referred to [facility] Med P.C.: No
[2020-07-01] MEDS ORDERED: MELATONIN 5 MG TABLETS PO ONE (21:30)
[2020-07-02] MEDS ORDERED: DEXTROSE 5%-WATER - 50 ML IVPB ONE ×3 (01:07→17:20)
[2020-07-02] MEDS ORDERED: PIPERACILLIN/TAZOBACTAM 3.375 GM VIAL IVPB ONE ×3 (01:07→17:20)
[2020-07-02] MEDS: PIPERACILLIN/TAZOB 3.375 GM 3.375 GM in DEXTROSE 5%-WATER - 50 ML IVPB SCH ×3 (01:16→17:22)
[2020-07-02] MEDS ORDERED: MINERAL OIL/PET HY-PHL TOPICAL OINTMENT 454 GM JAR TP ONE (02:00)
[2020-07-02] MEDS ORDERED: INSULIN (NOVOLOG) ASPART 100 UNITS/ML 10ML VIAL ONE ×2 (06:17→07:46)
[2020-07-02] MEDS: INSULIN (LEVEMIR) 100 UNITS/ML UNITS SQ SCH (06:24)
[2020-07-02] MEDS: INSULIN SLIDING SCALE (NOVOLOG) 1 VIAL SQ SCH ×6 (07:06→21:35)
[2020-07-02] MEDS ORDERED: LIDOCAINE HCL 1%, 10 MG/ML (20ML VIAL) ONE (07:25)
[2020-07-02] MEDS ORDERED: INSULIN (LEVEMIR) 100 UNITS/ML UNITS SQ ONE ×2 (07:45→17:11)
[2020-07-02] MEDS ORDERED: PROPOFOL 20 ML ONE ×2 (07:45→07:58)
[2020-07-02] MEDS ORDERED: MIDAZOLAM HCL 2 MG/2 ML SINGLE DOSE VIAL ONE (07:45)
[2020-07-02] MEDS ORDERED: LIDOCAINE HCL/PF 2% SDV 5ML VIAL ONE (07:45)
--- NOTE | 2020-07-02 08:49 | OP ---
Operative Note - Note: Operative Date: 07/02/20 Pre-Operative Diagnosis: Osteomyelitis possible abscess right forefoot Operation: Incision and drainage right foot. Amputation 4th toe and distal 1/3 of 4th metatarsal right foot. Deep wound culture. Proximal bone culture clean margin 4th metatarsal. Findings: soft bone metatarsal head, necrotic bone and soft tissue, minimal abscess Post-Operative Diagnosis: Same as Pre-op Surgeon: Kiki Guerra Dynamiter: Rd Bradshaw Anesthesiologist/BALL WORKER: Brandi Chowdary Anesthesia: Local, MAC Estimated Blood Loss (mls): 15 Instrument used (Debridements only): scalpel, power saw Operative Report Dictated: No
[2020-07-02] MEDS ORDERED: ONDANSETRON 4 MG/2 ML VIAL IVPUSH PRN (08:51)
[2020-07-02 09:42] LABS: BASO % 1.4 % (0-2.0); EOS % 1.7 % (0-4.5); HEMATOCRIT 36.6 % (35.4-49); HEMOGLOBIN 11.9 GM/dL (11.7-16.9); LYMPH % 22.9 % (8-40); MCH 29.8 pg (25.7-33.7); MCHC 32.5 g/dl (32.0-35.9); MEAN CELL VOLUME 91.7 fl (80-96); MEAN PLT VOLUME 8.3 fl (7.5-11.1); MONO % 7.2 % (3.8-10.2); NEUT % 66.8 % (42.8-82.8); PLATELET COUNT 359 K/MM3 (134-434); WHITE BLOOD COUNT 6.7 K/mm3 (4.0-10.0)
[2020-07-02] MEDS: CLOTRIMAZOLE 1% CREAM 15 GM TUBE TP SCH (11:00)
[2020-07-02] MEDS: SODIUM CHLORIDE 1,000 ML IV SCH (11:00)
[2020-07-02] MEDS ORDERED: DOCUSATE SODIUM 100 MG CAPSULE (FP) PO PRN (11:08)
--- NOTE | 2020-07-02 13:18 | PN ---
Progress Note, Physician Chief Complaint: POST OP I&D FOOT, AMP 4TH TOE NO C/O PAIN AFEBRILE WBC WNL WOUND C/S MIXED ORGANISMS - Current Medication List Current Medications: Active Medications Clotrimazole (Lotrimin 1% Cream -) 1 applic TP BID [facility] Docusate Sodium (Colace -) 100 mg PO BID PRN PRN Reason: CONSTIPATION Fentanyl (Sublimaze Injection -) 50 mcg IVPUSH [id number] PRN PRN Reason: PAIN-PACU ORDER X 4 DOSES ONLY Stop: 07/03/20 08:50 Sodium Chloride (Normal Saline -) 1,000 mls @ 83 mls/hr IV [facility] Last Admin: 07/02/20 11:00 Dose: 83 mls/hr Documented by: Piperacillin Sod/Tazobactam (Sod 3.375 gm/ Dextrose) 50 mls @ 100 mls/hr IVPB Q8H-IV [facility]; Protocol Insulin Aspart (Novolog Vial Sliding Scale -) 1 vial SQ ACHS [facility]; Protocol Last Admin: 07/02/20 11:27 Dose: 4 units Documented by: Insulin Detemir (Levemir Vial) 30 units SQ [facility] Metformin HCl (Glucophage -) 500 mg PO BID@0700,1630 [facility] Ondansetron HCl (Zofran Injection) 4 mg IVPUSH Q6H PRN PRN Reason: NAUSEA AND/OR VOMITING Stop: 07/03/20 08:50 - Objective Vital Signs: Vital Signs Temperature 98 F 07/02/20 12:00 Pulse Rate 76 07/02/20 12:00 Respiratory Rate 18 07/02/20 12:00 Blood Pressure 112/75 07/02/20 12:00 O2 Sat by Pulse Oximetry (%) 99 07/02/20 12:00 Constitutional: Yes: No Distress Eyes: Yes: Conjunctiva Clear Cardiovascular: Yes: Regular Rate and Rhythm, S1, S2 Respiratory: Yes: CTA Bilaterally Gastrointestinal: Yes: Normal Bowel Sounds, Soft. No: Tenderness Extremities: Yes: Other (POST OP DRESSING IN PLACE) Labs: CBC, BMP 07/02/20 09:15 06/30/20 07:02 INR, PTT INR 1.03 (0.83-1.09) 07/01/20 11:35 Assessment/Plan POST OP I&D, A/P 4TH TOE INFECTED DIABETIC FOOT ULCER/ CELLULITIS/ ABSCESS/OM AWAIT PATH REPORT CONTINUE LAWRENCEN
--- NOTE | 2020-07-02 15:29 | PN ---
Teaching Attending Note Name of Resident: Karri Cruz ATTENDING PHYSICIAN STATEMENT I saw and evaluated the patient. I reviewed the resident's note and discussed the case with the resident. I agree with the resident's findings and plan as documented. SUBJECTIVE: Comfortable post-op. Ongoing RLE discomfort and edema post-op. No further fevers. OBJECTIVE: Afebrile, Hemodynamically stable. Last Vital Signs Temp Pulse Resp BP Pulse Ox 98.4 F 72 20 105/72 99 07/02/20 14:08 07/02/20 14:08 07/02/20 14:08 07/02/20 14:08 07/02/20 14:08 Heart - S1, S2, RRR Lungs - clear to auscultation Abdomen - Soft, non-tender. Bowel Sounds normal. Extremities - R foot surgical site dressed post-operatively Laboratory Results - last 24 hr 07/01/20 07/01/20 07/02/20 16:31 21:44 06:21 WBC RBC Hgb Hct MCV MCH MCHC RDW Plt Count MPV Absolute Neuts (auto) Neutrophils % Lymphocytes % Monocytes % Eosinophils % Basophils % Nucleated RBC % POC Glucometer 114 352 240 07/02/20 07/02/20 09:15 11:26 WBC 6.7 RBC 4.00 Hgb 11.9 Hct 36.6 MCV 91.7 MCH 29.8 MCHC 32.5 RDW 14.0 Plt Count 359 MPV 8.3 Absolute Neuts (auto) 4.5 Neutrophils % 66.8 Lymphocytes % 22.9 Monocytes % 7.2 Eosinophils % 1.7 Basophils % 1.4 Nucleated RBC % 0 POC Glucometer 236 Current Medications Generic Name Dose Route Start Last Admin Trade Name Freq PRN Reason Stop Dose Admin Clotrimazole 1 applic 07/02/20 22:00 Lotrimin 1% Cream - TP BID [facility] Docusate Sodium 100 mg 07/02/20 11:08 Colace - PO BID PRN CONSTIPATION Fentanyl 50 mcg 07/02/20 08:51 Sublimaze Injection - IVPUSH 07/03/20 08:50 [id number] PRN PAIN-PACU ORDER X 4 DOSES ONLY Sodium Chloride 1,000 mls @ 83 mls/hr 07/02/20 09:00 07/02/20 11:00 Normal Saline - IV 83 mls/hr ASDIR [facility] Administration Piperacillin Sod/Tazobactam 50 mls @ 100 mls/hr 07/02/20 18:00 Sod 3.375 gm/ Dextrose IVPB Q8H-IV [facility] Protocol Insulin Aspart 1 vial 07/02/20 16:30 07/02/20 11:27 Novolog Vial Sliding Scale - SQ 4 units ACHS [facility] Administration Protocol Insulin Detemir 30 units 07/03/20 07:00 Levemir Vial SQ AM [facility] Metformin HCl 500 mg 07/02/20 16:30 Glucophage - PO BID@0700,1630 [facility] Ondansetron HCl 4 mg 07/02/20 08:51 Zofran Injection IVPUSH 07/03/20 08:50 Q6H PRN NAUSEA AND/OR VOMITING Home Medications Medication Instructions Recorded Docusate Sodium [Colace -] 100 mg PO DAILY #30 capsule 09/09/19 Insulin (Levemir) [Levemir Vial] 10 units SQ DAILY 30 Days #1 units 09/09/19 Pantoprazole Sodium [Protonix] 40 mg PO DAILY #30 tablet. 09/09/19 metFORMIN HCL [Glucophage -] 500 mg PO DAILY@0700 #30 tablet 09/09/19 Amoxicillin/Potassium Clav 1 each PO BID #14 tablet 09/13/19 [Augmentin 875-125 Tablet] Lancets/Blood Glucose Strips [Fora 1 each MC DAILY #1 combo..pkg 09/13/19 [id number] Strp-Lnct] Miscellaneous Medical Supply 1 each TD ASDIR #1 box 09/13/19 [Glucometer Test Strips #100] ASSESSMENT AND PLAN: 55 year old male with history of DM 2, GERD, admitted for fever, right foot pain/swelling/tenderness CT RLE - plantar ulcer with abscess MRI RLE - consistent with OM 4th MT and 4th digit with associated collection. Wound Cx - Beta-hemolytic Strep, Strep veridans, coag neg Staph 1. Sepsis secondary to Diabetic Foot ulcer/abscess/Osteomyelitis Immediately post-op s/p I and D R foot with amputation R 4th toe and distal 1/3 4th MT R foot Fever/Leukocytosis resolved. Continue IV Zosyn - further Abx titration pending Surgical/Bone Cx results. Podiatry/ID following. 2. DM 2 - Uncontrolled, A1C 13.4. Patient non-complaint with home diabetic regimen. Maintain on Levemir and Novolog sliding scale. Endocrinology consulted for guidance regarding optimization of DM 2 regimen - started on Metformin and Levemir 30 in AM. Metformin held rocio-operatively. DVT Px - Lovenox SQ to resume post-op. PT eval for safe Dispo
[2020-07-02] MEDS ORDERED: metFORMIN HCL 500 MG TABLET (FP) PO SCH (16:30)
--- NOTE | 2020-07-02 17:02 | PN ---
Physical Exam: SUBJECTIVE: Patient seen and examined at bedside, he was preparing to go to OR, No new complaints. OBJECTIVE: Vital Signs Period Temp Pulse Resp BP Sys/Javed Pulse Ox Last 24 Hr 97.7 F-99.6 F 52-78 14-20 105-129/70-84 98-100 GENERAL: AAOx3, in no acute distress HEENT: NCAT, PERRLA, EOMI, sclera anicteric, conjunctiva clear, oropharynx clear w/o exudates. MMM. NECK: Normal ROM, supple, no lymphadenopathy, JVD, or masses LUNGS: CTABL no wheezes/ rhonchi/ rales. No distress, speaks in full sentences. No increased work of breathing. HEART: RRR, normal S1 S2, no M/R/G, peripheral pulses 2+ and equal b/l ABDOMEN: Soft, non-tender, + BS. No guarding or rebound. No hepatomegaly or spl enomegaly. MSK: ROM WNL, NO CVA tenderness EXTREMITIES: No peripheral edema. No clubbing or cyanosis. 2 x 2 cm deep plantar ulcer w/purulent drainage, between 4th and 5th digits of right foot. NEUROLOGICAL: CN II-XII intact. Normal speech, gait not observed, no focal sensorimotor deficits. PSYCH: Normal mood, normal affect. SKIN: Warm, Dry, normal turgor, no rashes or lesions noted Laboratory Results - last 24 hr 07/01/20 07/02/20 07/02/20 21:44 06:21 09:15 WBC 6.7 RBC 4.00 Hgb 11.9 Hct 36.6 MCV 91.7 MCH 29.8 MCHC 32.5 RDW 14.0 Plt Count 359 MPV 8.3 Absolute Neuts (auto) 4.5 Neutrophils % 66.8 Lymphocytes % 22.9 Monocytes % 7.2 Eosinophils % 1.7 Basophils % 1.4 Nucleated RBC % 0 POC Glucometer 352 240 07/02/20 07/02/20 11:26 16:52 WBC RBC Hgb Hct MCV MCH MCHC RDW Plt Count MPV Absolute Neuts (auto) Neutrophils % Lymphocytes % Monocytes % Eosinophils % Basophils % Nucleated RBC % POC Glucometer 236 426 Active Medications Generic Name Dose Route Start Last Admin Trade Name Freq PRN Reason Stop Dose Admin Docusate Sodium 100 mg 07/02/20 11:08 Colace - PO BID PRN CONSTIPATION Fentanyl 50 mcg 07/02/20 08:51 Sublimaze Injection - IVPUSH 07/03/20 08:50 [id number] PRN PAIN-PACU ORDER X 4 DOSES ONLY Heparin Sodium (Porcine) 5,000 unit 07/02/20 22:00 Heparin - SQ TID [facility] Sodium Chloride 1,000 mls @ 83 mls/hr 07/02/20 09:00 07/02/20 11:00 Normal Saline - IV 83 mls/hr ASDIR [facility] Administration Piperacillin Sod/Tazobactam 50 mls @ 100 mls/hr 07/02/20 18:00 Sod 3.375 gm/ Dextrose IVPB Q8H-IV [facility] Protocol Insulin Aspart 1 vial 07/02/20 16:30 07/02/20 16:53 Novolog Vial Sliding Scale - SQ 12 units ACHS [facility] Administration Protocol Insulin Detemir 30 units 07/03/20 07:00 Levemir Vial SQ AM [facility] Metformin HCl 500 mg 07/02/20 16:30 Glucophage - PO BID@0700,1630 [facility] Ondansetron HCl 4 mg 07/02/20 08:51 Zofran Injection IVPUSH 07/03/20 08:50 Q6H PRN NAUSEA AND/OR VOMITING Imaging: CT RLE: diffuse soft tissue swelling with more focal area of soft tissue thickening and edema involving the fourth and fifth digits, plantar ulcer at lateral aspect of the foot with an approx 3.9 x 4.4 x 2.3 cm abscess centered around the fourth distal metatarsal and proximal phalanx. No bone changes to suggest osteomyelitis MRI LE: Extensive soft tissue swelling dorsal to the foot predominantly above t he distal aspect of the fourth metatarsal bone with multiloculated fluid collection 2.3 cm in diameter at best related on sagittal T2 image #8 compatible with subcutaneous abscess collection. Also noted extensive bone marrow edema predominantly mid and distal aspect of the fourth metatarsal bone compatible with osteomyelitis. Also noted minimal bone marrow edema of the proximal phalanx of the fourth digit which may related to osteomyelitis or to secondary reactive hyperemia. ASSESSMENT/PLAN: 55 yo M with PMHx of poorly-controlled T2DM on insulin, diabetic neuropathy, remote hx of tobacco and alcohol use who presents with a painful draining R foot ulcers, admitted for sepsis 2/2 to infected diabetic foot ulcer. #Sepsis 2/2 to infected diabetic foot ulcer #Osteomyelitis of RLE - Hx of poorly controlled DM, non compliance due to insurance issues. - In ER: T 100.7F, WBC 11.1, glucose 252, ESR 74, and CRP 6.6. - CT LE: Plantar ulcer with evidence of abscess - MRI LE: Fourth metatarsal bone with osteomyelitis - Wound culture: Wound Cx - Beta-hemolytic Strep, Strep veridans, coag neg Staph - Vascular consulted, Dr. posey, recs appreciated - podiatry consulted, recs appreciated D#0, s/p I and D R foot with amputation R 4th toe and distal 1/3 4th MT R foot - ID was consulted, Dr. Chua, recs appreciated - Continue with zosyn D#6, Pending bone Cx # poorly-controlled DM - Ua 3+ glucose, HbA1c 13 - BGMs ACHS ISS - Endocrine consulted, recs appreciated - started Metformin and Levemir 30 in AM - Social work consulted FEN - No standing fluids - Continue to monitor electrolytes - diabetic diet PPX - DVT: lovenox Dispo - Continue to monitor in [place], Pending PT evaluation Visit type - Emergency Visit Emergency Visit: Yes ED Registration Date: 06/24/20 Care time: The patient presented to the Emergency Department on the above date and was hospitalized for further evaluation of their emergent condition. - New Patient This patient is new to me today: No - Critical Care Critical Care patient: No - Discharge Referral Referred to [facility] Med P.C.: No ATTENDING PHYSICIAN STATEMENT I saw and evaluated the patient. I reviewed the resident's note and discussed the case with the resident. I agree with the resident's findings and plan as documented. SUBJECTIVE: OBJECTIVE: ASSESSMENT AND PLAN:
[2020-07-02] MEDS: HEPARIN NA (PORCINE) 5,000 UNITS/ML 1ML VIAL SQ SCH (21:36)
[2020-07-02] MEDS ORDERED: CLOTRIMAZOLE 1% CREAM 15 GM TUBE TP SCH (22:00)
[2020-07-03] MEDS ORDERED: PIPERACILLIN/TAZOBACTAM 3.375 GM VIAL IVPB ONE ×3 (00:56→17:15)
[2020-07-03] MEDS ORDERED: DEXTROSE 5%-WATER - 50 ML IVPB ONE ×3 (00:57→17:15)
[2020-07-03] MEDS: SODIUM CHLORIDE 1,000 ML IV SCH ×3 (01:30→15:26)
[2020-07-03] MEDS: PIPERACILLIN/TAZOB 3.375 GM 3.375 GM in DEXTROSE 5%-WATER - 50 ML IVPB SCH ×3 (01:30→17:19)
[2020-07-03] MEDS ORDERED: ACETAMINOPHEN 500 MG TABLET (FP) PO ONE (05:21)
[2020-07-03] MEDS: HEPARIN NA (PORCINE) 5,000 UNITS/ML 1ML VIAL SQ SCH ×3 (06:29→22:12)
[2020-07-03] MEDS: INSULIN SLIDING SCALE (NOVOLOG) 1 VIAL SQ SCH ×4 (06:29→22:10)
[2020-07-03] MEDS: INSULIN (LEVEMIR) 100 UNITS/ML UNITS SQ SCH (06:33)
[2020-07-03] MEDS ORDERED: INSULIN (NOVOLOG) ASPART 100 UNITS/ML 10ML VIAL ONE (06:47)
[2020-07-03 08:32] LABS: BASO % 0.7 % (0-2.0); EOS % 1.1 % (0-4.5); HEMATOCRIT 33.9 % (35.4-49); HEMOGLOBIN 11.1 GM/dL (11.7-16.9); LYMPH % 14.8 % (8-40); MCH 29.9 pg (25.7-33.7); MCHC 32.9 g/dl (32.0-35.9); MEAN PLT VOLUME 8.6 fl (7.5-11.1); NEUT % 77.4 % (42.8-82.8); PLATELET COUNT 334 K/MM3 (134-434); RBC 3.73 M/mm3 (4.00-5.60); RDW 14.4 % (11.9-15.9); WHITE BLOOD COUNT 10.6 K/mm3 (4.0-10.0)
[2020-07-03 08:39] LABS: ALBUMIN 2.7 g/dl (3.4-5.0); BLOOD UREA NITROGEN 10.3 mg/dL (7-18); CALCIUM 8.4 mg/dL (8.5-10.1); CREATININE 0.7 mg/dL (0.55-1.3); MAGNESIUM 1.9 mg/dL (1.8-2.4); PHOSPHOROUS 2.8 mg/dL (2.5-4.9); POTASSIUM 4.8 mmol/L (3.5-5.1)
[2020-07-03 08:40] LABS: BILIRUBIN,TOTAL 0.5 mg/dL (0.2-1); TOT PROT 6.4 g/dl (6.4-8.2)
[2020-07-03] MEDS ORDERED: PT OWN MED DRAWER 7, Y5N ONE (09:46)
--- NOTE | 2020-07-03 11:23 | PN ---
Progress Note, Physician Chief Complaint: POD#1. Pt states resident came in and manipulated dressing eventhough I asked for no one to touch dressing. Pt was sitting up with leg hanging down eventhough activity was limited to bedrest with no BRP. - Current Medication List Current Medications: Active Medications Docusate Sodium (Colace -) 100 mg PO BID PRN PRN Reason: CONSTIPATION Heparin Sodium (Porcine) (Heparin -) 5,000 unit SQ TID [facility] Last Admin: 07/03/20 06:29 Dose: 5,000 unit Documented by: Sodium Chloride (Normal Saline -) 1,000 mls @ 83 mls/hr IV ASDIR [facility] Last Admin: 07/03/20 01:30 Dose: 83 mls/hr Documented by: Piperacillin Sod/Tazobactam (Sod 3.375 gm/ Dextrose) 50 mls @ 100 mls/hr IVPB Q8H-IV [facility]; Protocol Last Admin: 07/03/20 09:48 Dose: 100 mls/hr Documented by: Insulin Aspart (Novolog Vial Sliding Scale -) 1 vial SQ ACHS [facility]; Protocol Last Admin: 07/03/20 06:29 Dose: 4 units Documented by: Insulin Detemir (Levemir Vial) 30 units SQ AM [facility] Last Admin: 07/03/20 06:33 Dose: 30 units Documented by: Metformin HCl (Glucophage -) 500 mg PO BID@0700,1630 [facility] - Objective Vital Signs: Vital Signs Temperature 99.3 F 07/03/20 07:31 Pulse Rate 63 07/03/20 07:31 Respiratory Rate 18 07/03/20 07:31 Blood Pressure 108/69 07/03/20 07:31 O2 Sat by Pulse Oximetry (%) 98 07/03/20 07:31 Extremities: Yes: Other (+dressing intact, -bleeding, -mal odor,) Labs: CBC, BMP 07/03/20 06:44 07/03/20 06:44 INR, PTT INR 1.03 (0.83-1.09) 07/01/20 11:35 Assessment/Plan POD#1 Do not remove dressing. Dressing will be done tomorrow by me. Bedrest till then. post op xray reviewed. Attempting to talk to 1st year resident to see what transpired with dressing. Has not returned my request for a call back. Will follow. CBC with diff in am. Abx as per ID.
--- NOTE | 2020-07-03 13:49 | PN ---
Progress Note (short form) - Note Progress Note: Anesthesiologist post op note, POD#1 S/P Incision and drainage right foot. Amputation 4th toe and distal 1/3 of 4th metatarsal right foot. Deep wound culture. Proximal bone culture clean margin 4th metatarsal, Under MAC. Pat seen and examined, VSS. No apparent post anesthesia complications.
--- NOTE | 2020-07-03 14:58 | PN ---
Physical Exam: SUBJECTIVE: Patient is seen and examined at bedside, he reports mild pain, post surgery, denies any fever, chills, nausea, vomiting. He reports that he wishes to go home. OBJECTIVE: Vital Signs Period Temp Pulse Resp BP Sys/Javed Pulse Ox Last 24 Hr 98 F-99.3 F 63-84 18-20 100-121/68-69 98-100 GENERAL: AAOx3, in no acute distress HEENT: NCAT, PERRLA, EOMI, sclera anicteric, conjunctiva clear, oropharynx clear w/o exudates. MMM. NECK: Normal ROM, supple, no lymphadenopathy, JVD, or masses LUNGS: CTABL no wheezes/ rhonchi/ rales. No distress, speaks in full sentences. No increased work of breathing. HEART: RRR, normal S1 S2, no M/R/G, peripheral pulses 2+ and equal b/l ABDOMEN: Soft, non-tender, + BS. No guarding or rebound. No hepatomegaly or splenomegaly. MSK: ROM WNL, NO CVA tenderness EXTREMITIES: No peripheral edema. No clubbing or cyanosis. Right foot with wound packing and dressing. NEUROLOGICAL: CN II-XII intact. Normal speech, gait not observed, no focal sensorimotor deficits. PSYCH: Normal mood, normal affect. SKIN: Warm, Dry, normal turgor, no rashes or lesions noted Laboratory Results - last 24 hr 07/02/20 07/02/20 07/03/20 16:52 21:00 06:26 WBC RBC Hgb Hct MCV MCH MCHC RDW Plt Count MPV Absolute Neuts (auto) Neutrophils % Lymphocytes % Monocytes % Eosinophils % Basophils % Nucleated RBC % Sodium Potassium Chloride Carbon Dioxide Anion Gap BUN Creatinine Est GFR (CKD-EPI)AfAm Est GFR (CKD-EPI)NonAf POC Glucometer 426 140 215 Random Glucose Calcium Phosphorus Magnesium Total Bilirubin AST ALT Alkaline Phosphatase Total Protein Albumin 07/03/20 07/03/20 07/03/20 06:44 06:44 11:53 WBC 10.6 H RBC 3.73 L Hgb 11.1 L Hct 33.9 L MCV 91.0 MCH 29.9 MCHC 32.9 RDW 14.4 Plt Count 334 MPV 8.6 Absolute Neuts (auto) 8.2 H Neutrophils % 77.4 Lymphocytes % 14.8 D Monocytes % 6.0 Eosinophils % 1.1 Basophils % 0.7 Nucleated RBC % 0 Sodium 139 Potassium 4.8 Chloride 105 Carbon Dioxide 27 Anion Gap 7 L BUN 10.3 Creatinine 0.7 Est GFR (CKD-EPI)AfAm 124.87 Est GFR (CKD-EPI)NonAf 107.74 POC Glucometer 207 Random Glucose 205 H Calcium 8.4 L Phosphorus 2.8 Magnesium 1.9 Total Bilirubin 0.5 AST 11 L ALT 15 Alkaline Phosphatase 51 Total Protein 6.4 Albumin 2.7 L Active Medications Generic Name Dose Route Start Last Admin Trade Name Freq PRN Reason Stop Dose Admin Docusate Sodium 100 mg 07/02/20 11:08 Colace - PO BID PRN CONSTIPATION Heparin Sodium (Porcine) 5,000 unit 07/02/20 22:00 07/03/20 14:06 Heparin - SQ 5,000 unit TID [facility] Administration Sodium Chloride 1,000 mls @ 83 mls/hr 07/02/20 09:00 07/03/20 01:30 Normal Saline - IV 83 mls/hr ASDIR [facility] Administration Piperacillin Sod/Tazobactam 50 mls @ 100 mls/hr 07/02/20 18:00 07/03/20 09:48 Sod 3.375 gm/ Dextrose IVPB 100 mls/hr Q8H-IV [facility] Administration Protocol Insulin Aspart 1 vial 07/02/20 16:30 07/03/20 11:55 Novolog Vial Sliding Scale - SQ 4 units ACHS [facility] Administration Protocol Insulin Detemir 30 units 07/03/20 07:00 07/03/20 06:33 Levemir Vial SQ 30 units AM [facility] Administration Metformin HCl 500 mg 07/02/20 16:30 Glucophage - PO BID@0700,1630 [facility] ASSESSMENT/PLAN: 55 yo M with PMHx of poorly-controlled T2DM on insulin, diabetic neuropathy, remote hx of tobacco and alcohol use who presents with a painful draining R foot ulcers, admitted for sepsis 2/2 to infected diabetic foot ulcer. #Sepsis 2/2 to infected diabetic foot ulcer #Osteomyelitis of RLE - Hx of poorly controlled DM, non compliance due to insurance issues. - In ER: T 100.7F, WBC 11.1, glucose 252, ESR 74, and CRP 6.6. - CT LE: Plantar ulcer with evidence of abscess - MRI LE: Fourth metatarsal bone with osteomyelitis - Wound culture: Wound Cx - Beta-hemolytic Strep, Strep veridans, coag neg Staph - Vascular consulted, Dr. posey, recs appreciated - podiatry consulted, recs appreciated D#1, s/p I and D R foot with amputation R 4th toe and distal 1/3 4th MT R foot - ID was consulted, Dr. Chua, recs appreciated - Continue with zosyn D#7, Pending Proximal bone culture - clean margin 4th metatarsal, Under MAC - PT consulted # poorly-controlled DM - Ua 3+ glucose, HbA1c 13 - BGMs ACHS ISS - Endocrine consulted, recs appreciated - started Metformin and Levemir 30 in AM - Social work consulted FEN - No standing fluids - Continue to monitor electrolytes - diabetic diet PPX - DVT: lovenox Dispo - Continue to monitor in [place] Visit type - Emergency Visit Emergency Visit: Yes ED Registration Date: 06/24/20 Care time: The patient presented to the Emergency Department on the above date and was hospitalized for further evaluation of their emergent condition. - New Patient This patient is new to me today: No - Critical Care Critical Care patient: No - Discharge Referral Referred to [facility] Med P.C.: No ATTENDING PHYSICIAN STATEMENT I saw and evaluated the patient. I reviewed the resident's note and discussed the case with the resident. I agree with the resident's findings and plan as documented. SUBJECTIVE: OBJECTIVE: ASSESSMENT AND PLAN:
[2020-07-03 15:23] VITALS: BMI 20.2
[2020-07-03] MEDS: AMINO ACIDS/PROTEIN HYDROLYS 30 ML LIQUID.PKT PO SCH (17:19)
--- NOTE | 2020-07-03 18:15 | PN ---
Teaching Attending Note Name of Resident: Karri Cruz ATTENDING PHYSICIAN STATEMENT I saw and evaluated the patient. I reviewed the resident's note and discussed the case with the resident. I agree with the resident's findings and plan as documented. SUBJECTIVE: OBJECTIVE: Last Vital Signs Temp Pulse Resp BP Pulse Ox 98.7 F 61 20 94/65 97 07/03/20 17:25 07/03/20 17:25 07/03/20 17:25 07/03/20 17:25 07/03/20 17:25 GENERAL: Awake, alert, and fully oriented, in no acute distress. LUNGS: Breath sounds equal, clear to auscultation bilaterally. No wheezes, and no crackles. No accessory muscle use. HEART: Regular rate and rhythm, normal S1 and S2 ABDOMEN: Soft, nontender, not distended LOWER EXTREMITIES: 2+ pulses, warm, well-perfused. No calf tenderness. No peripheral edema. Rt foot dressed, NEUROLOGICAL: Cranial nerves II-XII intact. Normal speech. CBCD WBC 10.6 K/mm3 (4.0-10.0) H 07/03/20 06:44 RBC 3.73 M/mm3 (4.00-5.60) L 07/03/20 06:44 Hgb 11.1 GM/dL (11.7-16.9) L 07/03/20 06:44 Hct 33.9 % (35.4-49) L 07/03/20 06:44 MCV 91.0 fl (80-96) 07/03/20 06:44 MCHC 32.9 g/dl (32.0-35.9) 07/03/20 06:44 RDW 14.4 % (11.9-15.9) 07/03/20 06:44 Plt Count 334 K/MM3 (134-434) 07/03/20 06:44 MPV 8.6 fl (7.5-11.1) 07/03/20 06:44 CMP Sodium 139 mmol/L (136-145) 07/03/20 06:44 Potassium 4.8 mmol/L (3.5-5.1) 07/03/20 06:44 Chloride 105 mmol/L (98-107) 07/03/20 06:44 Carbon Dioxide 27 mmol/L (21-32) 07/03/20 06:44 Anion Gap 7 MMOL/L (8-16) L 07/03/20 06:44 BUN 10.3 mg/dL (7-18) 07/03/20 06:44 Creatinine 0.7 mg/dL (0.55-1.3) 07/03/20 06:44 Calcium 8.4 mg/dL (8.5-10.1) L 07/03/20 06:44 Total Bilirubin 0.5 mg/dL (0.2-1) 07/03/20 06:44 AST 11 U/L (15-37) L 07/03/20 06:44 ALT 15 U/L (13-61) 07/03/20 06:44 Alkaline Phosphatase 51 U/L (45-117) 07/03/20 06:44 Total Protein 6.4 g/dl (6.4-8.2) 07/03/20 06:44 Albumin 2.7 g/dl (3.4-5.0) L 07/03/20 06:44 Active Medications Amino Acids (Prosource No Carb Liquid Pkt) 30 ml PO BID@0800,1730 [facility] Last Admin: 07/03/20 17:19 Dose: 30 ml Documented by: Docusate Sodium (Colace -) 100 mg PO BID PRN PRN Reason: CONSTIPATION Heparin Sodium (Porcine) (Heparin -) 5,000 unit SQ TID [facility] Last Admin: 07/03/20 14:06 Dose: 5,000 unit Documented by: Sodium Chloride (Normal Saline -) 1,000 mls @ 83 mls/hr IV ASDIR [facility] Last Admin: 07/03/20 15:26 Dose: 83 mls/hr Documented by: Piperacillin Sod/Tazobactam (Sod 3.375 gm/ Dextrose) 50 mls @ 100 mls/hr IVPB Q8H-IV [facility]; Protocol Last Admin: 07/03/20 17:19 Dose: 100 mls/hr Documented by: Insulin Aspart (Novolog Vial Sliding Scale -) 1 vial SQ ACHS [facility]; Protocol Last Admin: 07/03/20 16:53 Dose: Not Given Documented by: Insulin Detemir (Levemir Vial) 30 units SQ AM [facility] Last Admin: 07/03/20 06:33 Dose: 30 units Documented by: Metformin HCl (Glucophage -) 500 mg PO BID@0700,1630 [facility] ASSESSMENT AND PLAN: 55 year old male with history of DM 2, GERD, admitted for fever, right foot pain/swelling/tenderness # Sepsis secondary to Diabetic Foot ulcer/abscess/Osteomyelitis s/p I and D R foot with amputation R 4th toe and distal 1/3 4th MT R foot Fever/Leukocytosis resolving Continue IV Zosyn - further Abx titration pending Surgical/Bone Cx results. Podiatry/ID following. PT Podiatry following DM 2 DVT Px - Lovenox SQ
--- NOTE | 2020-07-03 21:50 | PN ---
Progress Note, Physician Chief Complaint: POST OP I&D FOOT, AMP 4TH TOE NO C/O PAIN AFEBRILE WBC 10.6 WOUND C/S MIXED ORGANISMS - Current Medication List Current Medications: Active Medications Amino Acids (Prosource No Carb Liquid Pkt) 30 ml PO BID@0800,1730 [facility] Last Admin: 07/03/20 17:19 Dose: 30 ml Documented by: Docusate Sodium (Colace -) 100 mg PO BID PRN PRN Reason: CONSTIPATION Heparin Sodium (Porcine) (Heparin -) 5,000 unit SQ TID [facility] Last Admin: 07/03/20 14:06 Dose: 5,000 unit Documented by: Sodium Chloride (Normal Saline -) 1,000 mls @ 83 mls/hr IV ASDIR [facility] Last Admin: 07/03/20 15:26 Dose: 83 mls/hr Documented by: Piperacillin Sod/Tazobactam (Sod 3.375 gm/ Dextrose) 50 mls @ 100 mls/hr IVPB Q8H-IV [facility]; Protocol Last Admin: 07/03/20 17:19 Dose: 100 mls/hr Documented by: Insulin Aspart (Novolog Vial Sliding Scale -) 1 vial SQ ACHS [facility]; Protocol Last Admin: 07/03/20 16:53 Dose: Not Given Documented by: Insulin Detemir (Levemir Vial) 30 units SQ AM [facility] Last Admin: 07/03/20 06:33 Dose: 30 units Documented by: Metformin HCl (Glucophage -) 500 mg PO BID@0700,1630 [facility] - Objective Vital Signs: Vital Signs Temperature 98.7 F 07/03/20 17:25 Pulse Rate 61 07/03/20 17:25 Respiratory Rate 20 07/03/20 17:25 Blood Pressure 94/65 07/03/20 17:25 O2 Sat by Pulse Oximetry (%) 97 07/03/20 17:25 Constitutional: Yes: No Distress Eyes: Yes: Conjunctiva Clear Cardiovascular: Yes: Regular Rate and Rhythm, S1, S2 Respiratory: Yes: CTA Bilaterally Gastrointestinal: Yes: Normal Bowel Sounds, Soft Extremities: Yes: Other (DRESSING IN PLACE) Labs: CBC, BMP 07/03/20 06:44 07/03/20 06:44 INR, PTT INR 1.03 (0.83-1.09) 07/01/20 11:35 Assessment/Plan POST OP I&D, A/P 4TH TOE INFECTED DIABETIC FOOT ULCER/ CELLULITIS/ ABSCESS/OM CONTINUE ZOSYN
[2020-07-04] MEDS ORDERED: PIPERACILLIN/TAZOBACTAM 3.375 GM VIAL IVPB ONE ×3 (01:01→17:03)
[2020-07-04] MEDS ORDERED: DEXTROSE 5%-WATER - 50 ML IVPB ONE ×3 (01:02→17:04)
[2020-07-04] MEDS: PIPERACILLIN/TAZOB 3.375 GM 3.375 GM in DEXTROSE 5%-WATER - 50 ML IVPB SCH ×3 (01:21→17:08)
[2020-07-04] MEDS: HEPARIN NA (PORCINE) 5,000 UNITS/ML 1ML VIAL SQ SCH ×3 (05:41→22:05)
[2020-07-04] MEDS: SODIUM CHLORIDE 1,000 ML IV SCH (05:42)
[2020-07-04] MEDS: INSULIN SLIDING SCALE (NOVOLOG) 1 VIAL SQ SCH ×4 (05:59→22:04)
[2020-07-04] MEDS: INSULIN (LEVEMIR) 100 UNITS/ML UNITS SQ SCH (07:54)
[2020-07-04] MEDS: AMINO ACIDS/PROTEIN HYDROLYS 30 ML LIQUID.PKT PO SCH ×2 (07:55→17:09)
[2020-07-04 07:59] LABS: EOS % 3.4 % (0-4.5); HEMATOCRIT 34.3 % (35.4-49); LYMPH % 24.6 % (8-40); MEAN CELL VOLUME 90.5 fl (80-96); MEAN PLT VOLUME 8.1 fl (7.5-11.1); MONO % 7.4 % (3.8-10.2); NEUT % 63.6 % (42.8-82.8); PLATELET COUNT 325 K/MM3 (134-434); RBC 3.79 M/mm3 (4.00-5.60); RDW 14.1 % (11.9-15.9); WHITE BLOOD COUNT 6.7 K/mm3 (4.0-10.0)
[2020-07-04 08:42] LABS: POTASSIUM 4.7 mmol/L (3.5-5.1)
[2020-07-04 09:08] LABS: ALBUMIN 2.7 g/dl (3.4-5.0); BILIRUBIN,TOTAL 0.7 mg/dL (0.2-1); BLOOD UREA NITROGEN 10.1 mg/dL (7-18); CALCIUM 8.8 mg/dL (8.5-10.1); CREATININE 0.5 mg/dL (0.55-1.3); PHOSPHOROUS 3.6 mg/dL (2.5-4.9); TOT PROT 6.4 g/dl (6.4-8.2)
--- NOTE | 2020-07-04 09:40 | PATH ---
Surgical Pathology Report Patient Name: JANINE OLIVEROS Med. Rec. #: [id number] /Age/Gender: 1965 (Age: 55) / M Account: [id number] Location: [facility] MED/SURG Taken: 07/02/2020 Received: 07/02/2020 Reported: 07/04/2020 Physicians: GREGORY Hill MD Specimen(s) Received A: FOURTH TOE, RIGHT FOOT B: DISTAL 1/3 OF FOURTH METATARSAL RIGHT FOOT Clinical History Diabetic right food ulcer Final Diagnosis A. FOURTH TOE, RIGHT FOOT, AMPUTATION: AMPUTATED TOE SHOWING MARKED ACUTE AND CHRONIC INFLAMMATION, FOCAL ABSCESS, AND GRANULATION TISSUE FORMATION. BONE WITH ACUTE AND CHRONIC OSTEOMYELITIS. VIABLE SKIN AND SOFT TISSUE MARGIN. B. DISTAL ONE THIRD OF THE FOURTH METATARSAL, RIGHT FOOT, EXCISION: PORTION OF BONE WITH ACUTE AND CHRONIC OSTEOMYELITIS INVOLVING BONE MARGIN. Electronically Signed Angelia Francisco M.D. Gross Description A. Received in formalin, labeled "fourth toe right foot", and consists of a portion of amputated toe, measuring 5.0 x 2.0 x 1.9cm. The skin surface shows superficial erosion. No ulceration is present. Separate portions of skin and soft tissue measuring 2.0 x 2.0 x 0.4cm in aggregate are present. Roll Clamp Operator sections are submitted in 5 cassettes. 1: skin and soft tissue margin 2. Random sections of skin and soft tissue 3. separate skin and soft tissue 4-5: bone from toe. B. Received in formalin, labeled "distal 1/3 of fourth metatarsal right foot" is a portion of bone with articular surface at one end, measuring 2 x 1.5 x 0.9 cm. The bone is bisected and show yellow and hard trabecular bone. The bone is decalcified and union contract representative section submitted in one cassette. __
[2020-07-04] MEDS ORDERED: INSULIN (NOVOLOG) ASPART 100 UNITS/ML 10ML VIAL ONE (11:00)
--- NOTE | 2020-07-04 15:00 | PN ---
Teaching Attending Note Name of Resident: Karri Cruz ATTENDING PHYSICIAN STATEMENT I saw and evaluated the patient. I reviewed the resident's note and discussed the case with the resident. I agree with the resident's findings and plan as documented. SUBJECTIVE: pt seen and examined, asking to go home OBJECTIVE: Last Vital Signs Temp Pulse Resp BP Pulse Ox 98.6 F 80 20 112/77 100 07/04/20 09:00 07/04/20 09:00 07/04/20 09:00 07/04/20 09:00 07/04/20 09:00 GENERAL: Awake, alert, and fully oriented, in no acute distress. LUNGS: Breath sounds equal, clear to auscultation bilaterally. No wheezes, and no crackles. No accessory muscle use. HEART: Regular rate and rhythm, normal S1 and S2 ABDOMEN: Soft, nontender, not distended LOWER EXTREMITIES: 2+ pulses, warm, well-perfused. No calf tenderness. No peripheral edema. Rt foot dressed, NEUROLOGICAL: Cranial nerves II-XII intact. Normal speech. CBCD WBC 6.7 K/mm3 (4.0-10.0) 07/04/20 06:55 RBC 3.79 M/mm3 (4.00-5.60) L 07/04/20 06:55 Hgb 11.0 GM/dL (11.7-16.9) L 07/04/20 06:55 Hct 34.3 % (35.4-49) L 07/04/20 06:55 MCV 90.5 fl (80-96) 07/04/20 06:55 MCHC 32.0 g/dl (32.0-35.9) 07/04/20 06:55 RDW 14.1 % (11.9-15.9) 07/04/20 06:55 Plt Count 325 K/MM3 (134-434) 07/04/20 06:55 MPV 8.1 fl (7.5-11.1) 07/04/20 06:55 CMP Sodium 140 mmol/L (136-145) 07/04/20 06:55 Potassium 4.7 mmol/L (3.5-5.1) 07/04/20 06:55 Chloride 106 mmol/L (98-107) 07/04/20 06:55 Carbon Dioxide 29 mmol/L (21-32) 07/04/20 06:55 Anion Gap 5 MMOL/L (8-16) L 07/04/20 06:55 BUN 10.1 mg/dL (7-18) 07/04/20 06:55 Creatinine 0.5 mg/dL (0.55-1.3) L 07/04/20 06:55 Calcium 8.8 mg/dL (8.5-10.1) 07/04/20 06:55 Total Bilirubin 0.7 mg/dL (0.2-1) 07/04/20 06:55 AST 18 U/L (15-37) 07/04/20 06:55 ALT 18 U/L (13-61) 07/04/20 06:55 Alkaline Phosphatase 50 U/L (45-117) 07/04/20 06:55 Total Protein 6.4 g/dl (6.4-8.2) 07/04/20 06:55 Albumin 2.7 g/dl (3.4-5.0) L 07/04/20 06:55 Active Medications Amino Acids (Prosource No Carb Liquid Pkt) 30 ml PO BID@0800,1730 [facility] Last Admin: 07/04/20 07:55 Dose: 30 ml Documented by: Docusate Sodium (Colace -) 100 mg PO BID PRN PRN Reason: CONSTIPATION Heparin Sodium (Porcine) (Heparin -) 5,000 unit SQ TID [facility] Last Admin: 07/04/20 13:09 Dose: 5,000 unit Documented by: Piperacillin Sod/Tazobactam (Sod 3.375 gm/ Dextrose) 50 mls @ 100 mls/hr IVPB Q8H-IV [facility]; Protocol Last Admin: 07/04/20 09:04 Dose: 100 mls/hr Documented by: Insulin Aspart (Novolog Vial Sliding Scale -) 1 vial SQ ACHS [facility]; Protocol Last Admin: 07/04/20 11:02 Dose: 4 units Documented by: Insulin Detemir (Levemir Vial) 30 units SQ AM [facility] Last Admin: 07/04/20 07:54 Dose: 30 units Documented by: Metformin HCl (Glucophage -) 500 mg PO BID@0700,1630 [facility] ASSESSMENT AND PLAN: 55 year old male with history of DM 2, GERD, admitted for fever, right foot pain/swelling/tenderness # Sepsis secondary to Diabetic Foot ulcer/abscess/Osteomyelitis s/p I and D R foot with amputation R 4th toe and distal 1/3 4th MT R foot Fever/Leukocytosis resolved on IV Zosyn podiatry note reporting clear margin Surgical pathology report showing acute and chronic OM ID consult appreciated PT plan per Podiatry DM 2 malnutrition? poor nutritional status, BMI 20.2, pt stated he lost weight over the course of last years. DVT Px - Lovenox SQ
--- NOTE | 2020-07-04 15:30 | PN ---
Physical Exam: SUBJECTIVE: Patient seen and examined at bedside, no new complaints. OBJECTIVE: Vital Signs Period Temp Pulse Resp BP Sys/Javed Pulse Ox Last 24 Hr 97.9 F-98.7 F 57-80 20-20 92-112/54-77 97-100 GENERAL: AAOx3, in no acute distress HEENT: NCAT, PERRLA, EOMI, sclera anicteric, conjunctiva clear, oropharynx clear w/o exudates. MMM. NECK: Normal ROM, supple, no lymphadenopathy, JVD, or masses LUNGS: CTABL no wheezes/ rhonchi/ rales. No distress, speaks in full sentences. No increased work of breathing. HEART: RRR, normal S1 S2, no M/R/G, peripheral pulses 2+ and equal b/l ABDOMEN: Soft, non-tender, + BS. No guarding or rebound. No hepatomegaly or splenomegaly. MSK: ROM WNL, NO CVA tenderness EXTREMITIES: No peripheral edema. No clubbing or cyanosis. Right foot with wound packing and dressing. NEUROLOGICAL: CN II-XII intact. Normal speech, gait not observed, no focal sensorimotor deficits. PSYCH: Normal mood, normal affect. SKIN: Warm, Dry, normal turgor, no rashes or lesions noted Laboratory Results - last 24 hr 07/03/20 07/03/20 07/04/20 16:52 22:09 05:49 WBC RBC Hgb Hct MCV MCH MCHC RDW Plt Count MPV Absolute Neuts (auto) Neutrophils % Lymphocytes % Monocytes % Eosinophils % Basophils % Nucleated RBC % Sodium Potassium Chloride Carbon Dioxide Anion Gap BUN Creatinine Est GFR (CKD-EPI)AfAm Est GFR (CKD-EPI)NonAf POC Glucometer 132 317 153 Random Glucose Calcium Phosphorus Magnesium Total Bilirubin AST ALT Alkaline Phosphatase Total Protein Albumin 07/04/20 07/04/20 07/04/20 06:55 06:55 10:57 WBC 6.7 RBC 3.79 L Hgb 11.0 L Hct 34.3 L MCV 90.5 MCH 29.0 MCHC 32.0 RDW 14.1 Plt Count 325 MPV 8.1 Absolute Neuts (auto) 4.3 Neutrophils % 63.6 Lymphocytes % 24.6 D Monocytes % 7.4 Eosinophils % 3.4 D Basophils % 1.0 Nucleated RBC % 0 Sodium 140 Potassium 4.7 Chloride 106 Carbon Dioxide 29 Anion Gap 5 L BUN 10.1 Creatinine 0.5 L Est GFR (CKD-EPI)AfAm 143.39 Est GFR (CKD-EPI)NonAf 123.72 POC Glucometer 226 Random Glucose 147 H Calcium 8.8 Phosphorus 3.6 Magnesium 2.0 Total Bilirubin 0.7 AST 18 ALT 18 Alkaline Phosphatase 50 Total Protein 6.4 Albumin 2.7 L Active Medications Generic Name Dose Route Start Last Admin Trade Name Freq PRN Reason Stop Dose Admin Amino Acids 30 ml 07/03/20 17:30 07/04/20 07:55 Prosource No Carb Liquid Pkt PO 30 ml BID@0800,1730 [facility] Administration Docusate Sodium 100 mg 07/02/20 11:08 Colace - PO BID PRN CONSTIPATION Heparin Sodium (Porcine) 5,000 unit 07/02/20 22:00 07/04/20 13:09 Heparin - SQ 5,000 unit TID [facility] Administration Piperacillin Sod/Tazobactam 50 mls @ 100 mls/hr 07/02/20 18:00 07/04/20 09:04 Sod 3.375 gm/ Dextrose IVPB 100 mls/hr Q8H-IV [facility] Administration Protocol Insulin Aspart 1 vial 07/02/20 16:30 07/04/20 11:02 Novolog Vial Sliding Scale - SQ 4 units ACHS [facility] Administration Protocol Insulin Detemir 30 units 07/03/20 07:00 07/04/20 07:54 Levemir Vial SQ 30 units AM [facility] Administration Metformin HCl 500 mg 07/02/20 16:30 Glucophage - PO BID@0700,1630 [facility] ASSESSMENT/PLAN: 55 yo M with PMHx of poorly-controlled T2DM on insulin, diabetic neuropathy, remote hx of tobacco and alcohol use who presents with a painful draining R foot ulcers, admitted for sepsis 2/2 to infected diabetic foot ulcer. #Sepsis 2/2 to infected diabetic foot ulcer #Osteomyelitis of RLE - Hx of poorly controlled DM, non compliance due to insurance issues. - In ER: T 100.7F, WBC 11.1, glucose 252, ESR 74, and CRP 6.6. - CT LE: Plantar ulcer with evidence of abscess - MRI LE: Fourth metatarsal bone with osteomyelitis - Wound culture: Wound Cx - Beta-hemolytic Strep, Strep veridans, coag neg Staph - Vascular consulted, Dr. posey, recs appreciated - podiatry consulted, Dr. Guerra, recs appreciated D#2, s/p I and D R foot with amputation R 4th toe and distal 1/3 4th MT R foot - ID was consulted, Dr. Chua, recs appreciated - Continue with zosyn D#8, Pending Proximal bone culture - clean margin 4th metatarsal, Under MAC - Wound Cx: Prelim-Stap Coag neg - PT consulted # poorly-controlled DM # sever malnutrition - Ua 3+ glucose, HbA1c 13 - BGMs ACHS ISS - Endocrine consulted, recs appreciated - started Metformin and Levemir 30 in AM - Social work consulted - BMI 20.2, Protein 6.1, albumin 2.4 - Dietary consultation FEN - No standing fluids - Continue to monitor electrolytes - diabetic diet PPX - DVT: lovenox Dispo - Continue to monitor in [place] Visit type - Emergency Visit Emergency Visit: Yes ED Registration Date: 06/24/20 Care time: The patient presented to the Emergency Department on the above date and was hospitalized for further evaluation of their emergent condition. - New Patient This patient is new to me today: No - Critical Care Critical Care patient: No - Discharge Referral Referred to [facility] Med P.C.: No ATTENDING PHYSICIAN STATEMENT I saw and evaluated the patient. I reviewed the resident's note and discussed the case with the resident. I agree with the resident's findings and plan as documented. SUBJECTIVE: OBJECTIVE: ASSESSMENT AND PLAN:
--- NOTE | 2020-07-04 17:41 | PN ---
Progress Note, Physician Chief Complaint: POD#2. No pain. Sitting up in chair leg hanging down ama. - Current Medication List Current Medications: Active Medications Amino Acids (Prosource No Carb Liquid Pkt) 30 ml PO BID@0800,1730 [facility] Last Admin: 07/04/20 17:09 Dose: 30 ml Documented by: Docusate Sodium (Colace -) 100 mg PO BID PRN PRN Reason: CONSTIPATION Heparin Sodium (Porcine) (Heparin -) 5,000 unit SQ TID [facility] Last Admin: 07/04/20 13:09 Dose: 5,000 unit Documented by: Piperacillin Sod/Tazobactam (Sod 3.375 gm/ Dextrose) 50 mls @ 100 mls/hr IVPB Q8H-IV [facility]; Protocol Last Admin: 07/04/20 17:08 Dose: 100 mls/hr Documented by: Insulin Aspart (Novolog Vial Sliding Scale -) 1 vial SQ ACHS [facility]; Protocol Last Admin: 07/04/20 17:01 Dose: 4 units Documented by: Insulin Detemir (Levemir Vial) 30 units SQ AM [facility] Last Admin: 07/04/20 07:54 Dose: 30 units Documented by: Metformin HCl (Glucophage -) 500 mg PO BID@0700,1630 [facility] - Objective Vital Signs: Vital Signs Temperature 98.6 F 07/04/20 15:02 Pulse Rate 67 07/04/20 15:02 Respiratory Rate 20 07/04/20 15:02 Blood Pressure 105/62 07/04/20 15:02 O2 Sat by Pulse Oximetry (%) 98 07/04/20 15:02 Extremities: Yes: Shortened Wound/Incision: Yes: Other (dressing clean dry and intact, +packing in place,) Labs: CBC, BMP 07/04/20 06:55 07/04/20 06:55 INR, PTT INR 1.03 (0.83-1.09) 07/01/20 11:35 Assessment/Plan POD#2 no pain Dressing removed. Packing pulled. Needs wound care weekly. VNS for home if not going to rehab facility. Will follow till dc. Will discuss with resident.
[2020-07-04] MEDS ORDERED: MELATONIN 5 MG TABLETS PO PRN (22:21)
[2020-07-04] MEDS ORDERED: MORPHINE SULFATE 2 MG/ML VIAL IVPUSH ONE (22:22)
[2020-07-05] MEDS ORDERED: PIPERACILLIN/TAZOBACTAM 3.375 GM VIAL IVPB ONE ×2 (01:31→09:07)
[2020-07-05] MEDS ORDERED: DEXTROSE 5%-WATER - 50 ML IVPB ONE ×2 (01:32→09:07)
[2020-07-05] MEDS: PIPERACILLIN/TAZOB 3.375 GM 3.375 GM in DEXTROSE 5%-WATER - 50 ML IVPB SCH (01:54)
[2020-07-05] MEDS: INSULIN (LEVEMIR) 100 UNITS/ML UNITS SQ SCH (06:20)
[2020-07-05] MEDS: HEPARIN NA (PORCINE) 5,000 UNITS/ML 1ML VIAL SQ SCH ×2 (06:20→13:30)
[2020-07-05] MEDS: INSULIN SLIDING SCALE (NOVOLOG) 1 VIAL SQ SCH ×3 (06:20→16:24)
[2020-07-05] MEDS ORDERED: INSULIN (LEVEMIR) 100 UNITS/ML UNITS SQ ONE (07:58)
[2020-07-05 08:23] LABS: EOS % 4.3 % (0-4.5); HEMATOCRIT 37.7 % (35.4-49); HEMOGLOBIN 12.2 GM/dL (11.7-16.9); LYMPH % 30.8 % (8-40); MCH 29.1 pg (25.7-33.7); MCHC 32.3 g/dl (32.0-35.9); MEAN CELL VOLUME 90.2 fl (80-96); MEAN PLT VOLUME 8.2 fl (7.5-11.1); MONO % 5.8 % (3.8-10.2); NEUT % 58.1 % (42.8-82.8); PLATELET COUNT 367 K/MM3 (134-434); RBC 4.18 M/mm3 (4.00-5.60); RDW 13.9 % (11.9-15.9); WHITE BLOOD COUNT 5.7 K/mm3 (4.0-10.0)
[2020-07-05 08:37] LABS: POTASSIUM 4.2 mmol/L (3.5-5.1)
[2020-07-05] MEDS: AMINO ACIDS/PROTEIN HYDROLYS 30 ML LIQUID.PKT PO SCH ×2 (08:42→17:34)
[2020-07-05 09:20] LABS: ALBUMIN 3.2 g/dl (3.4-5.0); BILIRUBIN,TOTAL 0.5 mg/dL (0.2-1); BLOOD UREA NITROGEN 12.9 mg/dL (7-18); CALCIUM 9.4 mg/dL (8.5-10.1); CREATININE 0.6 mg/dL (0.55-1.3); PHOSPHOROUS 3.5 mg/dL (2.5-4.9); TOT PROT 7.5 g/dl (6.4-8.2)
[2020-07-05] MEDS ORDERED: CEFTRIAXONE 2 GM in DEXTROSE 5%-WATER 100 ML IVPB SCH (11:00)
[2020-07-05] MEDS ORDERED: DEXTROSE 5%-WATER 100 ML IVPB ONE (11:35)
--- NOTE | 2020-07-05 13:24 | DS ---
Physical Exam: SUBJECTIVE: Patient seen and examined at bedside, no new complaints. wishes to go home, denies any fever, chills, nausea, vomiting, diarrhea. OBJECTIVE: Vital Signs Period Temp Pulse Resp BP Sys/Javed Pulse Ox Last 24 Hr 97.6 F-98.6 F 59-82 20-20 93-111/60-77 97-100 PHYSICAL EXAM GENERAL: AAOx3, in no acute distress HEENT: NCAT, PERRLA, EOMI, sclera anicteric, conjunctiva clear, oropharynx clear w/o exudates. MMM. NECK: Normal ROM, supple, no lymphadenopathy, JVD, or masses LUNGS: CTABL no wheezes/ rhonchi/ rales. No distress, speaks in full sentences. No increased work of breathing. HEART: RRR, normal S1 S2, no M/R/G, peripheral pulses 2+ and equal b/l ABDOMEN: Soft, non-tender, + BS. No guarding or rebound. No hepatomegaly or splenomegaly. MSK: ROM WNL, NO CVA tenderness EXTREMITIES: No peripheral edema. No clubbing or cyanosis. Right foot with wound packing and dressing, surgical boot in place NEUROLOGICAL: CN II-XII intact. Normal speech, gait not observed, no focal sensorimotor deficits. PSYCH: Normal mood, normal affect. SKIN: Warm, Dry, normal turgor, no rashes or lesions noted LABS Laboratory Results - last 24 hr 07/04/20 07/04/20 07/05/20 17:00 22:02 06:18 WBC RBC Hgb Hct MCV MCH MCHC RDW Plt Count MPV Absolute Neuts (auto) Neutrophils % Lymphocytes % Monocytes % Eosinophils % Basophils % Nucleated RBC % Sodium Potassium Chloride Carbon Dioxide Anion Gap BUN Creatinine Est GFR (CKD-EPI)AfAm Est GFR (CKD-EPI)NonAf POC Glucometer 207 284 253 Random Glucose Calcium Phosphorus Magnesium Total Bilirubin AST ALT Alkaline Phosphatase Total Protein Albumin 07/05/20 07/05/20 07/05/20 07:39 07:39 11:29 WBC 5.7 RBC 4.18 Hgb 12.2 Hct 37.7 MCV 90.2 MCH 29.1 MCHC 32.3 RDW 13.9 Plt Count 367 MPV 8.2 Absolute Neuts (auto) 3.3 Neutrophils % 58.1 Lymphocytes % 30.8 D Monocytes % 5.8 Eosinophils % 4.3 Basophils % 1.0 Nucleated RBC % 0 Sodium 136 Potassium 4.2 Chloride 103 Carbon Dioxide 27 Anion Gap 6 L BUN 12.9 Creatinine 0.6 Est GFR (CKD-EPI)AfAm 133.04 Est GFR (CKD-EPI)NonAf 114.79 POC Glucometer 435 Random Glucose 162 H Calcium 9.4 Phosphorus 3.5 Magnesium 2.0 Total Bilirubin 0.5 AST 13 L ALT 18 Alkaline Phosphatase 50 Total Protein 7.5 Albumin 3.2 L 07/05/20 12:46 WBC RBC Hgb Hct MCV MCH MCHC RDW Plt Count MPV Absolute Neuts (auto) Neutrophils % Lymphocytes % Monocytes % Eosinophils % Basophils % Nucleated RBC % Sodium Potassium Chloride Carbon Dioxide Anion Gap BUN Creatinine Est GFR (CKD-EPI)AfAm Est GFR (CKD-EPI)NonAf POC Glucometer 197 Random Glucose Calcium Phosphorus Magnesium Total Bilirubin AST ALT Alkaline Phosphatase Total Protein Albumin HOSPITAL COURSE: Date of Admission:06/24/20 55 yo M with PMHx of poorly-controlled T2DM on insulin, diabetic neuropathy, remote hx of tobacco and alcohol use who presents with a painful draining R foot ulcers, admitted for sepsis 2/2 to infected diabetic foot ulcer. Patient has a Hx of poorly controlled DM, non compliance due to insurance issues. In ER patient had T 100.7F, WBC 11.1, glucose 252, ESR 74, and CRP 6.6. Imaging : CT LE showed Plantar ulcer with evidence of abscess. MRI LE was significant for Fourth metatarsal bone with osteomyelitis. Wound culture revealed Beta-hemolytic Strep, Strep veridans, coag neg Staph. Podiatry was consulted and patient underwent I and D R foot with amputation R 4th toe and distal 1/3 4th MT R foot. Patient received 8 days of Zosyn. Pending Proximal bone culture - clean margin 4th metatarsal, Under MAC. repeated Wound Cx Stap Coag neg. Patient has poorly controlled DM, due to Insurance complications. Ua 3+ glucose, HbA1c 13. Endocrine was consulted for further recs, started Metformin and Levemir 30 in AM. Patient also has Sever malnutrition, most likely 2/2 to poorly controlled DM. BMI 20.2, Protein 6.1, albumin 2.4. Dietary was consulted and provided patient with Prosourve NO carb Liquid pkt. Patient was cleared by podiatry for discharge, he is clinically stable for discharge and discharged him home with VNS and provided referrals and prescriptions as listed below Date of Discharge: 07/05/20 Minutes to complete discharge: 36 Discharge Summary Problems reviewed: Yes Reason For Visit: DIABETIC FOOT ULCER Current Active Problems Diabetic foot ulcer (Acute) Condition: Guarded - Instructions Diet, Activity, Other Instructions: YOUR VISIT: You were admitted to the hospital for an infection of your foot. You had to have a procedure to remove some of the bone infection. Your culture shows that you still have infection in your bone. You were treated with IV antibiotics and you will need to continue IV antibiotics. Your diabetes number was found to be 13.4 MEDICATIONS: Please START taking metformin 500 twice a day Please take 30 U Levemir every morning If your sugar is above 150 at night then you can also use levemir 10 units hs Continue to take all other home medications as prescribed FOLLOW UPS: Please follow up with your assistant field hockey coach, Dr. Dowling to further manage your diabetes Please visit your primary care provider within 2 weeks to follow up with your labwork and hospital visit. If you would like to continue care with [facility] you can follow at our clinic at [facility] Please follow up with your security assistant, Dr. Guerra regarding your foot wound infection ADDITIONAL INSTRUCTIONS: You are being discharged to your home with a visiting nurse to help with your wound Please return to the Emergency department if you are experiencing worsening or concerning symptoms. Wound care instructions: Sammi dressing change every other day Referrals: [facility] [place] [Provider Group] - 1 Week Latesha Sanderson MD [Primary Care Provider] - 1 Week Yves Dowling MD [Staff Physician] - 2 Weeks (A1c> 13 ) Kiki Guerra DPM [Staff Physician] - 1 Week Disposition: VNS/HOME HEALTH CARE - Home Medications Comprehensive Discharge Medication List: Ambulatory Orders Amino Acids/Protein Hydrolys [Prosource No Carb Liquid Pkt] 30 ml PO BID@0800,1730 #60 packet 07/05/20 Ceftriaxone [Rocephin -] 2 gm IVPB DAILY vial 07/05/20 Docusate Sodium [Colace -] 100 mg PO BID PRN #60 capsule 07/05/20 Insulin (Levemir) [Levemir Vial] 30 units SQ AM #30 units 07/05/20 Insulin Sliding Scale [Novolog Vial Sliding Scale -] 1 vial SQ ACHS #100 units 07/05/20 metFORMIN HCL [Glucophage -] 500 mg PO BID@0700,1630 #60 tablet 07/05/20 This patient is new to me today: No Emergency Visit: Yes ED Registration Date: 06/24/20 Care time: The patient presented to the Emergency Department on the above date and was hospitalized for further evaluation of their emergent condition. Critical Care patient: No - Discharge Referral Referred to [facility] No ATTENDING PHYSICIAN STATEMENT I saw and evaluated the patient. I reviewed the resident's note and discussed the case with the resident. I agree with the resident's findings and plan as documented. SUBJECTIVE: OBJECTIVE: ASSESSMENT AND PLAN:
[2020-07-05 14:05] VITALS: BP 105/63; PULSE 81; TEMP 98.5
--- NOTE | 2020-07-05 16:09 | PN ---
Teaching Attending Note Name of Resident: Karri Cruz ATTENDING PHYSICIAN STATEMENT I saw and evaluated the patient. I reviewed the resident's note and discussed the case with the resident. I agree with the resident's findings and plan as documented. SUBJECTIVE: pt seen and examined OBJECTIVE: Last Vital Signs Temp Pulse Resp BP Pulse Ox 98.5 F 81 19 105/63 97 07/05/20 14:00 07/05/20 14:00 07/05/20 14:00 07/05/20 14:00 07/05/20 14:00 GENERAL: Awake, alert, and fully oriented, in no acute distress. LUNGS: Breath sounds equal, clear to auscultation bilaterally. No wheezes, and no crackles. No accessory muscle use. HEART: Regular rate and rhythm, normal S1 and S2 ABDOMEN: Soft, nontender, not distended LOWER EXTREMITIES: 2+ pulses, warm, well-perfused. No calf tenderness. No peripheral edema. Rt foot dressed, NEUROLOGICAL: Cranial nerves II-XII intact. Normal speech. CBCD WBC 5.7 K/mm3 (4.0-10.0) 07/05/20 07:39 RBC 4.18 M/mm3 (4.00-5.60) 07/05/20 07:39 Hgb 12.2 GM/dL (11.7-16.9) 07/05/20 07:39 Hct 37.7 % (35.4-49) 07/05/20 07:39 MCV 90.2 fl (80-96) 07/05/20 07:39 MCHC 32.3 g/dl (32.0-35.9) 07/05/20 07:39 RDW 13.9 % (11.9-15.9) 07/05/20 07:39 Plt Count 367 K/MM3 (134-434) 07/05/20 07:39 MPV 8.2 fl (7.5-11.1) 07/05/20 07:39 CMP Sodium 136 mmol/L (136-145) 07/05/20 07:39 Potassium 4.2 mmol/L (3.5-5.1) 07/05/20 07:39 Chloride 103 mmol/L (98-107) 07/05/20 07:39 Carbon Dioxide 27 mmol/L (21-32) 07/05/20 07:39 Anion Gap 6 MMOL/L (8-16) L 07/05/20 07:39 BUN 12.9 mg/dL (7-18) 07/05/20 07:39 Creatinine 0.6 mg/dL (0.55-1.3) 07/05/20 07:39 Random Glucose 162 mg/dL (74-106) H 07/05/20 07:39 Calcium 9.4 mg/dL (8.5-10.1) 07/05/20 07:39 Total Bilirubin 0.5 mg/dL (0.2-1) 07/05/20 07:39 AST 13 U/L (15-37) L 07/05/20 07:39 ALT 18 U/L (13-61) 07/05/20 07:39 Alkaline Phosphatase 50 U/L (45-117) 07/05/20 07:39 Total Protein 7.5 g/dl (6.4-8.2) 07/05/20 07:39 Albumin 3.2 g/dl (3.4-5.0) L 07/05/20 07:39 Active Medications Amino Acids (Prosource No Carb Liquid Pkt) 30 ml PO BID@0800,1730 [facility] Last Admin: 07/05/20 08:42 Dose: 30 ml Documented by: Docusate Sodium (Colace -) 100 mg PO BID PRN PRN Reason: CONSTIPATION Heparin Sodium (Porcine) (Heparin -) 5,000 unit SQ TID [facility] Last Admin: 07/05/20 13:30 Dose: 5,000 unit Documented by: Ceftriaxone Sodium 2 gm/ (Dextrose) 100 mls @ 100 mls/hr IVPB DAILY [facility]; Protocol Last Admin: 07/05/20 11:37 Dose: 100 mls/hr Documented by: Insulin Aspart (Novolog Vial Sliding Scale -) 1 vial SQ ACHS [facility]; Protocol Last Admin: 07/05/20 11:30 Dose: 12 units Documented by: Insulin Detemir (Levemir Vial) 30 units SQ AM [facility] Last Admin: 07/05/20 06:20 Dose: 30 units Documented by: Melatonin (Melatonin) 5 mg PO HS PRN PRN Reason: INSOMNIA Last Admin: 07/04/20 22:44 Dose: 5 mg Documented by: Metformin HCl (Glucophage -) 500 mg PO BID@0700,1630 [facility] ASSESSMENT AND PLAN: 55 year old male with history of DM 2, GERD, admitted for fever, right foot pain/swelling/tenderness # Sepsis secondary to Diabetic Foot ulcer/abscess/Osteomyelitis s/p I and D R foot with amputation R 4th toe and distal 1/3 4th MT R foot Fever/Leukocytosis resolved on IV Zosyn Surgical pathology report showing acute and chronic OM PT podiatry consult appreciated cleared for discharge by Podiatry for home infusion/VNS on ceftriaxone 2g/day DM 2 malnutrition? poor nutritional status, BMI 20.2, pt stated he lost weight over the course of last years. DVT Px - Lovenox SQ
--- NOTE | 2020-07-19 09:59 | OP ---
DATE OF OPERATION: 07/02/2020 PREOPERATIVE DIAGNOSIS: Gangrene om 4th toe and metatarsal right foot. POSTOPERATIVE DIAGNOSIS: Gangrene om 4th toe and metatarsal right foot. PROCEDURE: Incision and drainage right foot, amputation of the 4th toe and distal 1/3 of the 4th metatarsal right foot. PROCEDURE IN DETAIL: After all preoperative vital signs within normal limits and after surgical site was signed and witnessed, the patient was brought to the OR, placed on the table in the supine position. Once the patient was on the table, the patient was sedated and a local infiltrate was given proximal to the 4th metatarsophalangeal joint around the base of the 4th metatarsal. Once this block was done, the patient's foot was then prepped and draped in the usual sterile fashion. Attention was then directed to the 4th toe. Utilizing a 15-blade using sharp dissection the 4th toe was disarticulated from the metatarsophalangeal joint and sent down to Pathology. At this time the head of the 4th metatarsal was examined. It was noted to be soft. Extending the incision proximally and sharply dissecting to bone the soft bone was idetified. Utilizing a sagittal saw going from dorsal to plantar the distal 1/3 of the 4th metatarsal was resected and sent down to Pathology. The area was examined and noted that there was no remaining infected bone. A proximal specimen was sent down for bone culture at this time for a clean margin. The area was then flushed with copious amounts of sterile saline that had antibiotic added to it. The wound was then closed utilizing 3-0 nylon retention sutures in a simple interrupted suture fashion after 1/4-inch Iodoform packing was put into place. xeroform gauze, dry sterile dressing and kerlix were then applied. Patient tolerated the anesthesia and the procedure well. Patient returned to recovery room with vital signs stable and neurovascular status intact. GREGORY Hill/[id number] GIL
== END 2020-07-05 19:03 | disposition home health service (06) | DRG 853 ==
LOC: JER 16:42 → JERBED 21:50 → J8W 06-25 21:44
PROVIDERS: ADMIT Internal Medicine; ATTEND Student in an Organized Health Care Education/Training Program
PROC: 0Y6V0Z0 Detachment at Right 4th Toe, Complete, Open Approach (ICD-10-PCS; 2020-07-02)
PROC: 0QBN0ZZ Excision of Right Metatarsal, Open Approach (ICD-10-PCS; 2020-07-02)
PROC: 0J9Q0ZX Drainage of Right Foot Subcutaneous Tissue and Fascia, Open Approach, Diagnostic (ICD-10-PCS; principal; 2020-07-02 08:00)
PROC: 02HV33Z Insertion of Infusion Device into Superior Vena Cava, Percutaneous Approach (ICD-10-PCS; 2020-07-05)
PROC: B518ZZA Fluoroscopy of Superior Vena Cava, Guidance (ICD-10-PCS; 2020-07-05)
DX: A41.1 Sepsis due to other specified staphylococcus (principal); E43 Unspecified severe protein-calorie malnutrition; L97.518 Non-pressure chronic ulcer of other part of right foot with other specified severity; L03.115 Cellulitis of right lower limb; M86.8X7 Other osteomyelitis, ankle and foot; L02.611 Cutaneous abscess of right foot; E11.52 Type 2 diabetes mellitus with diabetic peripheral angiopathy with gangrene; I96 Gangrene, not elsewhere classified; E11.621 Type 2 diabetes mellitus with foot ulcer; E11.69 Type 2 diabetes mellitus with other specified complication; E11.40 Type 2 diabetes mellitus with diabetic neuropathy, unspecified; E11.65 Type 2 diabetes mellitus with hyperglycemia; K21.9 Gastro-esophageal reflux disease without esophagitis; B95.4 Other streptococcus as the cause of diseases classified elsewhere; I10 Essential (primary) hypertension; E78.5 Hyperlipidemia, unspecified; K57.90 Diverticulosis of intestine, part unspecified, without perforation or abscess without bleeding; K44.9 Diaphragmatic hernia without obstruction or gangrene; D72.829 Elevated white blood cell count, unspecified; Z68.20 Body mass index [BMI] 20.0-20.9, adult; Z91.14 Patient's other noncompliance with medication regimen
CPT/HCPCS: 36415; 36569; 71045-TC-FY; 73610-TC-RT-FY; 73630-TC-RT-FY; 73701-TC-RT; 73721-RT-TC; 77001-TC-FY; 80053; 81003; 82803; 82962; 83036; 83605; 83735; 84100; 85025; 85610; 85651; 86140; 86850; 86900; 86901; 87040; 87070; 87075; 87205; 88305-TC; 88311-TC; 93005; 93010; 93971-TC; 94760; 97116-GP; 97161-GP; 99285-25; C1751; G0480; J0131; J1644; Q9967; U0003

== ENCOUNTER 2023-12-28 04:18 | Day surgery (SDC) | payer OTHER ==
[2023-12-24 10:35] VITALS: BMI 23.4
[2023-12-28 11:05] VITALS: PULSE 66; RESP 18; TEMP 97.7
[2023-12-28 11:53] VITALS: BP 170/92
== END 2023-12-28 11:55 | disposition home or self-care (01) ==
LOC: JASU-ENDO 04:18
PROVIDERS: ATTEND Internal Medicine Gastroenterology
PROC: 0DBL8ZX Excision of Transverse Colon, Via Natural or Artificial Opening Endoscopic, Diagnostic (ICD-10-PCS; 2023-12-28)
PROC: 0DBP8ZX Excision of Rectum, Via Natural or Artificial Opening Endoscopic, Diagnostic (ICD-10-PCS; principal; 2023-12-28 10:00)
DX: Z12.11 Encounter for screening for malignant neoplasm of colon (principal); D12.3 Benign neoplasm of transverse colon; D12.8 Benign neoplasm of rectum; K64.8 Other hemorrhoids; K64.4 Residual hemorrhoidal skin tags; I10 Essential (primary) hypertension; E11.9 Type 2 diabetes mellitus without complications; Z79.84 Long term (current) use of oral hypoglycemic drugs
CPT/HCPCS: 82962; 88305-TC